=== PATIENT | female | born 1955 | race American Indian/Alaskan Native ===

== ENCOUNTER → 2018-04-09 12:44 | Outpatient (CLI) | payer OTHER, SELFPAY ==
--- NOTE | 2018-04-09 13:23 | DI.RAD.S_ITS ---
PROCEDURE: XR CHEST 2V INDICATIONS: Hx Substernal CP, annual PE TECHNIQUE: 2 views of the chest were acquired. COMPARISON: None. FINDINGS: Surgical changes and devices: None. Lungs and pleura: No pleural effusions or pneumothorax. Lungs are clear. Mediastinum: Mediastinal contours are normal. Heart size is normal. Tortuous aorta. Bones and chest wall: No suspicious bony abnormalities. Mild anterior wedging T8 and T12. Soft tissues appear unremarkable. IMPRESSION: No acute cardiopulmonary abnormality Dictated by: Stefan Candelario M.D. on 04/09/2018 at 14:11 Approved by: Stefan Candelario M.D. on 04/09/2018 at 14:12
== END ==
PROVIDERS: PCP Nurse Practitioner Family; Visit Provider Nurse Practitioner Family
DX: M85.88 Other specified disorders of bone density and structure, other site (principal); M85.9 Disorder of bone density and structure, unspecified; Z78.0 Asymptomatic menopausal state; Z00.00 Encounter for general adult medical examination without abnormal findings
CPT/HCPCS: 71046; 77080

== ENCOUNTER → 2018-05-04 11:04 | Outpatient (CLI) | payer OTHER, SELFPAY ==
[2018-05-04 12:35] LABS: Appearance Urine UA CLEAR; Bilirubin Urine UA NEGATIVE (NEGATIVE); Color Urine UA YELLOW; Glucose Urine UA NEGATIVE (Normal); Ketones Urine UA NEGATIVE (NEGATIVE); Leukocyte Esterase Urine UA NEGATIVE (NEGATIVE); Nitrite Urine UA Negative (Negative); Occult Blood Urine UA TRACE-INTACT (Negative); Protein Urine UA NEGATIVE (Negative); Specific Gravity Urine UA <=1.005 (1.000-1.035); Urobilinogen Urine UA 0.2 E.U./dL (0.2)
== END ==
PROVIDERS: PCP Nurse Practitioner Family; Visit Provider Nurse Practitioner Family
DX: R31.9 Hematuria, unspecified (principal)
CPT/HCPCS: 81003

== ENCOUNTER 2018-07-13 08:32 | Day surgery (SDC) | payer OTHER, SELFPAY ==
[2018-07-13 09:31] VITALS: BMI 28.3
[2018-07-13 09:40] VITALS: BP 130/75; PULSE 68; RESP 16; TEMP 36.2; O2SAT 100
[2018-07-13] MEDS: SODIUM CHLORIDE 0.9% 1,000 ML 21 ML IV (09:52)
--- NOTE | 2018-07-13 11:07 | PM.HP.1 ---
History of Present Illness Date Patient Seen: 07/13/18 Time Patient Seen: 11:08 Chief complaint: [id number] Narrative: Patient with a prior history of polyps. Last exam was 2014. On testing recently she had blood in her stool and is here for a colonoscopy Patient History Medical History GERD (gastroesophageal reflux disease) (Chronic) Hepatitis C (Chronic 2013) Hiatal hernia (Chronic 2007) Abnormal Pap smear of cervix (Resolved 1987) Colon polyps (Resolved 2008) Colon polyps (Resolved 2010) Syphilis (Resolved ~1970) Surgical History Anesthesia (Resolved) History of tonsillectomy (Resolved ~1962) History of total left knee replacement (TKR) (Resolved 03/30/17) Status post breast reduction (Resolved 1999) Status post colonoscopy (Resolved 2008) Status post colonoscopy (Resolved 2011) Status post dilation and curettage (Resolved) Status post knee surgery (Resolved 03/2012) Status post knee surgery (Resolved 2011) Status post tubal ligation (Resolved 1987) Family & Social History Family History: Reviewed 07/13/18 by Chicho Little MD Social History: household members spouse Tobacco & Substance use: Smoking Status Never smoker Meds Home Medications Medication Instructions Recorded Confirmed Type cholecalciferol (vitamin D3) 125 mg PO QDAY #0 03/09/17 07/13/18 History [Vitamin D3] cyanocobalamin (vitamin B-12) 1,000 mcg PO DAILY 07/13/18 07/13/18 History [Vitamin B-12] ferrous sulfate [iron] 325 mg PO DAILY 07/13/18 07/13/18 History Allergies Allergy/AdvReac Type Severity Reaction Status Date / Time No Known Drug Allergies Allergy Verified 07/13/18 09:28 Review of Systems Review of Systems All systems reviewed & are unremarkable except as noted in HPI and below Gastrointestinal Comments: Successfully treated for hep C with clearance Exam Vital Signs (past 8 hours): - 07/13/18 09:40 Temperature 97.2 F L Pulse Rate 68 Respiratory Rate 16 Blood Pressure 130/75 Pulse Oximetry 100 Oxygen Delivery Method Room Air Narrative Exam Narrative: Operative no apparent distress. Lungs clear . heart regular rate and rhythm without murmur gallop. abdomen is scaphoid soft nontender without mass. alert and oriented x3 Assessment & Plan Plan: Assessment/Plan Narrative: Has blood in stool on testing. Last colonoscopy 2014. I have discussed the procedure and the rationale with the patient including risks of bleeding, perforation which would necessitate a major operation, failure to find remove all lesions and the potential to tattoo. They appeared to understand and wished to proceed.
--- NOTE | 2018-07-13 11:11 | PM.PREOP ---
Pre-operative Note Interval Note Pre-op Check: Yes History & Physical exam performed today by Physician Changes: No ASA Class (for procedural sedation): I
[2018-07-13] MEDS: MIDAZOLAM 5 MG/5 ML VIAL IV (11:18)
[2018-07-13] MEDS: fentaNYL 250 MCG/5 ML INJ IV (11:19)
--- NOTE | 2018-07-13 11:40 | PM.OP.ENDO ---
Operative Date/Time/Diagnoses Date of procedure: 07/13/18 Time of procedure: 11:40 Pre-op diagnosis: Blood in stool on testing Post-op diagnosis: same (Normal exam except for sigmoid diverticulosis and internal hemorrhoids) Procedure & Clinicians Study performed: Colonoscopy Same procedure as scheduled: Yes Indications: Blood reported in stool Surgeon: Chicho Little Procedure Notes SCOAP/Timeout: Performed Procedure in detail: The patient was placed in the left lateral decubitus position and underwent IV sedation directed by the surgeon consisting of fentanyl and Versed. Digital exam was unremarkable. The scope was inserted and advanced through the rectum into the sigmoid, descending, transverse, and ascending colon. The patient had a very redundant colon. The cecum was reached identified by the ileocecal valve and the appendiceal opening. The ileocecal valve was successfully cannulated. The terminal ileum was normal in appearance. The scope was gradually brought out. No Polyps were found. The scope ultimately was retroflexed in the rectum. The appearance was notable for internal hemorrhoids.. The scope was removed and the patient tolerated the procedure well Scope withdrawal time: 8 min Sedation minutes: 31 Findings: diverticulosis (Sigmoid) and internal hemorrhoids Recommendations: Colonscopy in 5 years (Due to history of polyps) Follow up: as needed Disposition: PACU
[2018-07-13 11:45] VITALS: BP 109/67; PULSE 64; RESP 10; TEMP 36.8; O2SAT 100
[2018-07-13 11:50] VITALS: BP 122/70; PULSE 59; RESP 11; O2SAT 100
[2018-07-13 11:54] VITALS: BP 114/70; PULSE 53; RESP 11; TEMP 36.9; O2SAT 100
[2018-07-13 12:05] VITALS: BP 124/74; PULSE 57; RESP 14; TEMP 36.9; O2SAT 100
== END 2018-07-13 12:30 | disposition home or self-care (01) ==
PROVIDERS: PCP Nurse Practitioner Family; Visit Provider Specialist
PROC: 0DJD8ZZ Inspection of Lower Intestinal Tract, Via Natural or Artificial Opening Endoscopic (ICD-10-PCS; CPT 45378; principal; 2018-07-13 09:45)
DX: R19.5 Other fecal abnormalities (principal); K57.30 Diverticulosis of large intestine without perforation or abscess without bleeding; K64.8 Other hemorrhoids; Z86.010 Personal history of colon polyps
CPT/HCPCS: 45378; 99152; 99153; J2250; J3010

== ENCOUNTER 2019-08-16 08:41 | Day surgery (SDC) | payer OTHER, SELFPAY ==
[2019-08-13 08:14] VITALS: BMI 28.7
[2019-08-16] VITALS (8 sets, daily range): BP systolic 117–144; BP diastolic 63–92; PULSE 54–74; RESP 11–16; TEMP 36–36.6; O2SAT 95–100; BMI 28.7
--- NOTE | 2019-08-16 | DI.RAD.S_ITS ---
PROCEDURE: XR FOOT LT 2V INDICATIONS: HAMMER TOE TECHNIQUE: 2 intraoperative fluoroscopic spot images views of the foot were acquired. COMPARISON: [facility], CR, XR FOOT 3+ VIEWS LEFT, 05/14/2019, 9:02. FINDINGS: Dorsal hardware fixation at the first metatarsal phalangeal joint. No unexpected fractures. Prominent soft tissue medial to the first MTP joint. IMPRESSION: 1. Expected intraoperative appearance of the bunionectomy surgery. Dictated by: Susan Hu M.D. on 08/16/2019 at 22:15 Approved by: Susan Hu M.D. on 08/16/2019 at 22:17
[2019-08-16] MEDS: LACTATED RINGERS 1,000 ML 42 ML IV ×2 (09:09→13:11)
--- NOTE | 2019-08-16 10:53 | PM.PREOP ---
Pre-operative Note Interval Note History & Physical reviewed/Exam performed by Physician: Yes Changes to H&P: No
--- NOTE | 2019-08-16 10:53 | PM.OP.1 ---
Operative Date/Time/Diagnoses Date of procedure: 08/16/19 Time of procedure: 10:53 Pre-op diagnosis: Left great toe arthritis and bunion Retained hardware Post-op diagnosis: same Procedure & Clinicians Procedure: Left great toe hardware removal Left first metatarsophalangeal joint fusion Same procedure as scheduled: Yes Indications: Painful great toe. Conservative measures failed to alleviate her pain and she was to have surgical intervention at this time. Surgeon: Griselda Hernandez Click Yes if Unassisted: Yes Anesthesia Type: General Operative Notes Closure Type: primary Specimen(s): none sent Prosthetic devices, grafts, tissues, transplants, or devices: Franklin great toe fusion plate, 2.7 x 7 screws (locking and non-locking) See Implant record for specifics on DBM and bone croutons added. Estimated Blood Loss (mL): 30 Blood products transfused: none Tourniquet time (min): 113 Procedure in detail: The patient was brought to the operating room and placed on the operating table in the supine position. A tourniquet was placed about the patient's thigh. A time out was performed and instrumentation indicators were verified to have achieved sterilization. The patient was well-padded and appropriately aligned. After induction of general anesthesia the foot and ankle were prepped and draped in the usual aseptic manner. The tourniquet was inflated. Incision was made over the dorsal aspect of the left 1st metatarsophalangeal joint. The incision was deepened through subcutaneous tissues being careful to identify and retract all vital neurovascular structures. All bleeders were cauterized and ligated necessary. A significant amount of scar tissue was noted along with some exostoses noted to the dorsal medial and lateral 1st metatarsophalangeal joint. The capsule was opened and I also noted a moderately enlarged medial eminence of the 1st metatarsal head. Proximal to joint the edge of the screw was noted. It was significantly imbedded in the bone on its more proximal aspect at the head but the screw itself was very much in the way of where the procedure needed to be performed along with the plate placement. Gentle attempts at removing the screw were mostly involving trying to remove the bone from within the cruciate aspect of the screw head and then surrounding the screw itself. The we were finally able to remove it but unfortunately because of its imbedded in the bone, there was a gap of bone that was necessary to remove in order to remove the screw. The screw was removed in total and passed from the field. The area was irrigated with copious amounts of normal sterile saline. A saw was used to resect the medial eminence enlargement as well as some of the more prominent areas of spurring at the 1st metatarsophalangeal joint. A guidewire was placed in the 1st metatarsal head and a reamer was used to resect the cartilage from the 1st metatarsal head and prepare the joint. Because of the loss of bone proximal to the joint at the proximal phalanx, a mixture of osteotome and curettage along with a saw was used to resect the cartilage and prepare it at the proximal phalanx base. Subchondral drilling was performed to either side with the guidewire as well as some fish scaling using a small osteotome. The area was irrigated with copious amount of normal sterile saline. Different plates were reviewed and because of the challenges faced with the gap of bone at the proximal phalanx, the decision was made to place a small screw with in 1 of the gaps to allow for a lagging at the former joint. Using standard AO technique and a lag technique this was performed. This held nicely and brought the former joint together. Next the gap was filled with the mixture listed in the nursing notes of DBM and bone crew tones. This was packed well. Using the aid of fluoroscopy, a long 0 degree plate was able to be placed and a series of locking and nonlocking screws were placed within it as well. This was checked under C-arm to be in appropriate alignment and under multiple planes. Good strength and reduction of the former joint. The area is irrigated with copious amounts normal sterile saline. The tourniquet was deflated and prompt hyperemic response was seen to the foot. And no motion was noted at the 1st MTPJ. Subcutaneous closure was performed using Vicryl and nylon was used to close the skin. A sterile lightly compressive dressing was placed on the foot and she was placed in her postoperative shoe. She was transferred to the PACU with vital signs stable and vascular status intact. Complications: none Post-operative Condition: stable Disposition: PACU Plan for aftercare: Following a period of postoperative monitoring, the patient be discharged home on written and oral postoperative instructions including keeping the dressing dry and intact, avoiding ambulation on the foot, icing and elevating the foot when seated home. DVT prevention techniques have been reviewed. For the 1st postoperative visit the dressing will be changed and close to the 3rd postoperative week we will likely remove the sutures and x-rays at the 3rd to 4th postoperative week as well.
[2019-08-16] MEDS: CEFAZOLIN 2 GM/100 ML FROZ.PIGGY IV (11:14)
--- NOTE | 2019-08-16 12:14 | SUR.OPER ---
Supine on padded OR bed, head on pillow, arms secured on padded arm boards at <90 degrees abduction, legs uncrossed, safety belt at thigh, tape over blanket over no-operative lower extremity.
--- NOTE | 2019-08-16 12:15 | SUR.OPER ---
Supine on padded OR bed, head on pillow, arms secured on padded arm boards at <90 degrees abduction, legs uncrossed, safety belt at thigh, tape over blanket over lower legs, bump to left hip
[2019-08-16] MEDS: BUPIVACAINE 0.5% (PF) VIAL 30 ML INJ (12:26)
--- NOTE | 2019-08-16 13:00 | SUR.OPER ---
UNABLE TO OBTAIN INFO REGARDING SCREW REMOVED PER DR. GUZMAN.
--- NOTE | 2019-08-16 14:49 | SUR.PHASEI ---
bedside report given to Jenifer Mccarty RN. pt in stable condition, vss. transferred care of pt to RASHID Mccarty at this time.
[2019-08-16] MEDS: OXYCODONE/ACETAMINOPHEN 5/325 TABLET 1 TAB PO (15:17)
== END 2019-08-16 16:35 | disposition home or self-care (01) ==
PROVIDERS: PCP Nurse Practitioner; Visit Provider Podiatrist
DX: M20.12 Hallux valgus (acquired), left foot (principal); M79.672 Pain in left foot; M19.079 Primary osteoarthritis, unspecified ankle and foot
CPT/HCPCS: 28750; 20680; 73620; 76000; J0690; J1100; J2250; J2405; J2704; J3010

== ENCOUNTER 2020-04-01 14:41 | Emergency (ER) | payer OTHER, SELFPAY ==
[2020-04-01] VITALS (10 sets, daily range): BP systolic 143–166; BP diastolic 84–101; PULSE 62–81; RESP 12–29; TEMP 36.6; O2SAT 94–100; BMI 31.2
--- NOTE | 2020-04-01 15:30 | ED.EXTPRO ---
HPI - Extremity Problem General Chief complaint: Extremity Problem,Nontraumatic Stated complaint: left forearm hot/red line/severe headache today Time Seen by Provider: 04/01/20 14:54 Source: patient Mode of arrival: Ambulatory Limitations: no limitations History of Present Illness HPI Narrative: Patient is a 65-year-old female who presents with left middle finger swelling and pain with streaking up her arm. She said last night she was fine she had no problem this morning she noticed that the tip of her finger with a little irritated but she was still able to make a fist now she has significant swelling and pain with at the distal tip of her middle finger with erythema streaking up her arm to just below her elbow. She denies any fever or chills. She has not had any body aches she denies any injury to her hand or finger. MD Complaint: extremity swelling Related Data Previous Rx's Medication Instructions Recorded cephalexin [Keflex] 500 mg PO TID #30 cap 04/01/20 Allergies Allergy/AdvReac Type Severity Reaction Status Date / Time No Known Drug Allergies Allergy Verified 04/01/20 14:51 Review of Systems Review of Systems Narrative: GENERAL: Denies chills, fatigue, malaise, fever, sweats, travel HEENT: Denies sinus pain, ear pain, sore throat, difficulty swallowing, neck pain RESPIRATORY: Denies dyspnea, cough, wheezing, hemoptysis, sputum. CARDIOVASCULAR: Denies chest pain, palpitations, orthopnea, edema GASTROINTESTINAL: Denies nausea, vomiting, abdominal pain, diarrhea, constipation, melena. : Denies dysuria, frequency, incontinence, hematuria, urinary retention, flank pain. MUSCULOSKELETAL: Denies weakness, joint pain, or bony pain SKIN: See HPI NEUROLOGIC: Denies weakness, dizziness, headache, numbness, change in speech, confusion PSYCHIATRIC: No concerning psychosocial issues. 12 point review of systems is negative except for those stated above and HPI Patient History Medical History Abnormal Pap smear of cervix (Resolved 1987) Colon polyps (Resolved 2008) Colon polyps (Resolved 2010) GERD (gastroesophageal reflux disease) (Chronic) Hepatitis C (Chronic 2013) Hiatal hernia (Chronic 2007) Syphilis (Resolved ~1969) Surgical History Anesthesia (Resolved) H/O: hysterectomy (Acute) History of tonsillectomy (Resolved ~1962) History of total left knee replacement (TKR) (Resolved 03/30/17) S/P foot surgery, left (Acute) Status post breast reduction (Resolved 1999) Status post colonoscopy (Resolved 2008) Status post colonoscopy (Resolved 2011) Status post dilation and curettage (Resolved) Status post knee surgery (Resolved 03/2012) Status post knee surgery (Resolved 2011) Status post LASIK surgery (Acute) Status post trigger finger release (Acute) Status post tubal ligation (Resolved 1987) Family History Unknown No problems noted. Social History household members: spouse Smoking Status: Never smoker second hand exposure: No alcohol intake: former substance use type: does not use Smoking Status: Never smoker Substance Use Type: does not use Exam Initial Vital Signs Initial Vital Signs: Vital Signs Pulse Rate 81 04/01/20 14:49 Pulse Oximetry 98 04/01/20 14:49 GENERAL: Well-appearing, well-nourished and in no acute distress. HEENT: Head atraumatic,EOMI, pupils reactive, face symmetric, moist mucous membranes CARDIOVASCULAR: Regular rate and rhythm without murmurs, rubs or gallops. RESPIRATORY: Breath sounds equal bilaterally, no wheezes rales or rhonchi. EXTREMITIES: Normal range of motion, no clubbing or edema. Neurovascularly intact Left hand middle finger distal tip the palmar side is swollen and tender she is noted to have erythema starting at the middle MCP and spreading up her forearm to just below her elbow NEUROLOGICAL: Alert and oriented x4.Normal gait and speech. Cranial nerves II through XII grossly intact. SKIN: Warm, dry, no laceration, no petechiae, no rashes or lesions. Procedures Abscess I/D I&D #1: Site: hand (left index finger) Side (if applicable): left Local Anesthetic: lidocaine 1% Amount of anesthesia used (mL): 6 Technique: incised with #11 blade (bilateral longitudinal incisions) Amount of fluid expressed (mL): 0 Irrigation: No Packing used?: iodoform Complications: pain and bleeding Nerve Block Nerve Block 1: Time out performed: Yes Local Anesthetic: lidocaine 1% Amount of anesthesia used (mL): 6 Side: left Nerve Blocks: digital Procedure Successful: Yes Patient Tolerated Procedure: Well Complications: none Course Orders Ordered: Discontinued Medications Sodium Chloride (Normal Saline 0.9%) 1,000 mls @ 1,000 mls/hr IV BOLUS ONE Stop: 04/01/20 16:27 Last Infusion: 04/01/20 17:17 Dose: 0 mls/hr Documented by: Admin: 04/01/20 15:48 Dose: 1,000 mls/hr Documented by: MARIUSZ Ceftriaxone Sodium/Dextrose (Rocephin) 1 gm in 50 mls @ 100 mls/hr IV NOW ONE Stop: 04/01/20 18:03 Last Admin: 04/01/20 18:18 Dose: 100 mls/hr Documented by: MARIUSZ Ketorolac Tromethamine (Toradol) 30 mg IV NOW ONE Stop: 04/01/20 15:43 Last Admin: 04/01/20 15:48 Dose: 30 mg Documented by: MARIUSZ Lidocaine HCl (Xylocaine 1%) 10 ml INJ NOW ONE Stop: 04/01/20 16:47 Last Admin: 04/01/20 17:15 Dose: Not Given Documented by: MARIUSZ Consultations Consultation #1: Orthopedics Dr. Mcclain updated patient's symptoms test results agrees with bedside I and D and antibiotic with outpatient follow-up Vital Signs Vital signs: Vital Signs - 8 hr 04/01/20 14:49 04/01/20 14:52 04/01/20 15:20 Temperature 97.9 F Pulse Rate 81 81 Pulse Rate [Left Radial] 70 Respiratory Rate 16 Blood Pressure 166/101 H Pulse Oximetry 98 99 04/01/20 15:57 04/01/20 16:00 Temperature Pulse Rate 73 72 Pulse Rate [Left Radial] Respiratory Rate 21 Blood Pressure 157/92 H 152/91 H Pulse Oximetry 94 100 MDM - Extremity (Nontraumatic) Lab Data Result diagrams: 04/01/20 15:40 04/01/20 15:40 Labs: Lab Results 04/01/20 04/01/20 04/01/20 Range/Units 15:40 15:40 15:40 WBC 6.9 (4.5-11.0) X10^3/uL RBC 4.86 (4.0-5.2) X10^6/uL Hgb 15.4 (12.0-16.0) g/dL Hct 44.6 (36-46) % MCV 91.8 (80-100) fL MCH 31.7 (26-34) PG MCHC 34.6 (30-36) % RDW 12.9 (11.6-14.8) % Plt Count 222 (150-400) X10^3/uL Neut % (Auto) 72.7 (50-75) % Lymph % (Auto) 15.1 L (25-40) % [place] % (Auto) 9.1 (3-14) % Eos % (Auto) 2.3 (2-4) % Baso % (Auto) 0.8 (0-2) % Neut # (Auto) 5000 (7299-9791) /uL Lymph # (Auto) 1000 L (6595-5338) /uL [place] # (Auto) 600 (0-900) /uL Eos # (Auto) 200 (0-450) /uL Baso # (Auto) 100 (0-100) /uL PT 12.0 (10.1-12.7) SECONDS INR 1.0 (0.9-1.3) APTT 35 (26.4-36.2) SECONDS Sodium (137-145) mmol/L Potassium (3.4-5.1) mmol/L Chloride (98-107) mmol/L Carbon Dioxide (22-32) mmol/L BUN (7-17) mg/dL Creatinine (0.52-1.04) mg/dL Estimated GFR (>60) mL/min BUN/Creatinine Ratio (6-22) Glucose (80-110) mg/dL Lactate (0.7-2.1) mmol/L Calcium (8.4-10.2) mg/dL Total Bilirubin (0.2-1.3) mg/dL AST (14-36) IU/L ALT (<35) IU/L Alkaline Phosphatase (38-126) U/L Total Protein (6.3-8.2) g/dL Albumin (3.5-5.0) g/dL Globulin (1.7-4.1) g/dL Albumin/Globulin Ratio (1.0-2.8) Lipase (23-300) U/L Procalcitonin < 0.05 (<0.5) ng/mL 04/01/20 04/01/20 Range/Units 15:40 15:40 WBC (4.5-11.0) X10^3/uL RBC (4.0-5.2) X10^6/uL Hgb (12.0-16.0) g/dL Hct (36-46) % MCV (80-100) fL MCH (26-34) PG MCHC (30-36) % RDW (11.6-14.8) % Plt Count (150-400) X10^3/uL Neut % (Auto) (50-75) % Lymph % (Auto) (25-40) % [place] % (Auto) (3-14) % Eos % (Auto) (2-4) % Baso % (Auto) (0-2) % Neut # (Auto) (2909-0669) /uL Lymph # (Auto) (3696-3996) /uL [place] # (Auto) (0-900) /uL Eos # (Auto) (0-450) /uL Baso # (Auto) (0-100) /uL PT (10.1-12.7) SECONDS INR (0.9-1.3) APTT (26.4-36.2) SECONDS Sodium 138 (137-145) mmol/L Potassium 4.2 (3.4-5.1) mmol/L Chloride 105 (98-107) mmol/L Carbon Dioxide 28 (22-32) mmol/L BUN 14 (7-17) mg/dL Creatinine 0.51 L (0.52-1.04) mg/dL Estimated GFR > 60.0 (>60) mL/min BUN/Creatinine Ratio 27.5 H (6-22) Glucose 95 (80-110) mg/dL Lactate 0.7 (0.7-2.1) mmol/L Calcium 9.8 (8.4-10.2) mg/dL Total Bilirubin 0.4 (0.2-1.3) mg/dL AST 32 (14-36) IU/L ALT 16 (<35) IU/L Alkaline Phosphatase 65 (38-126) U/L Total Protein 7.9 (6.3-8.2) g/dL Albumin 4.5 (3.5-5.0) g/dL Globulin 3.4 (1.7-4.1) g/dL Albumin/Globulin Ratio 1.3 (1.0-2.8) Lipase 45 (23-300) U/L Procalcitonin (<0.5) ng/mL Imaging Data Extremity x-ray #1: Radiologist's Impression: PROCEDURE: XR FINGER LT MIN 2V INDICATIONS: swelling TECHNIQUE: AP hand, 2 views of the left finger(s) acquired. COMPARISON: None. FINDINGS: Bones: Lucency projecting at the dorsal aspect of the distal phalanx of the middle finger No suspicious bony lesions. Diffuse interphalangeal joint degeneration. First CMC and triscaphe joint degeneration. Ulnar minus variance and distal radioulnar joint degeneration suggestive of ulnar impingement syndrome. Soft tissues: No suspicious soft tissue calcifications. IMPRESSION: Linear lucency projects in the dorsal aspect of the distal phalanx of the left middle finger suggestive of nondisplaced fracture. This could be further assessed and confirmed with repeat radiographs in 10 days. Background chronic degenerative changes as above Dictated by: Bib Quintero M.D. on 04/01/2020 at 16:09 Approved by: Bib Quintero M.D. on 04/01/2020 at 16:12 Discharge Plan Departure Patient Disposition: Home Clinical Impression: Felon of finger of left hand Discharge Date/Time: 04/01/20 19:11 Instructions: DI for Felon Activity Restrictions/Additional Instructions: *You have been diagnosed with left middle finger felon *What to do: Keep dressing on until tomorrow. Return to the ER around 7:00 a.m. for re-evaluation *Continue to take medications as directed--> sent to [facility] in [place] Keflex 500 mg 3 times a day for 10 days *Follow up with your primary care provider in 2-3 days, Call orthopedics to schedule follow-up, recommend follow-up by next week *Return to ER if you should have increased swelling, worsening redness, fever, inability to move finger or any new, worsening or concerning symptoms Prescriptions: New cephalexin [Keflex] 500 mg capsule 500 mg PO TID Qty: 30 RF: 0 Referrals: [facility] [Provider Group] Arelis Mcgrath ARNP [Primary Care Provider] -
--- NOTE | 2020-04-01 15:36 | DI.RAD.S_ITS ---
PROCEDURE: XR FINGER LT MIN 2V INDICATIONS: swelling TECHNIQUE: AP hand, 2 views of the left finger(s) acquired. COMPARISON: None. FINDINGS: Bones: Lucency projecting at the dorsal aspect of the distal phalanx of the middle finger No suspicious bony lesions. Diffuse interphalangeal joint degeneration. First CMC and triscaphe joint degeneration. Ulnar minus variance and distal radioulnar joint degeneration suggestive of ulnar impingement syndrome. Soft tissues: No suspicious soft tissue calcifications. IMPRESSION: Linear lucency projects in the dorsal aspect of the distal phalanx of the left middle finger suggestive of nondisplaced fracture. This could be further assessed and confirmed with repeat radiographs in 10 days. Background chronic degenerative changes as above Dictated by: Bib Quintero M.D. on 04/01/2020 at 16:09 Approved by: Bbi Quintero M.D. on 04/01/2020 at 16:12
[2020-04-01] MEDS: KETOROLAC 60 MG/2 ML VIAL 30 MG IV (15:48)
[2020-04-01] MEDS: SODIUM CHLORIDE 0.9% 1,000 ML 1000 ML IV (15:48)
[2020-04-01 15:50] LABS: Add Manual Diff / Slide Review NO; Basophils Absolute Auto 100 /uL (0-100); Basophils Percent Auto 0.8 % (0-2); Eosinophils Absolute Auto 200 /uL (0-450); Eosinophils Percent Auto 2.3 % (2-4); Hematocrit 44.6 % (36-46); Hemoglobin 15.4 g/dL (12.0-16.0); Lymphocytes Absolute Auto 1000 /uL (1100-4500); Lymphocytes Percent Auto 15.1 % (25-40); Mean Corpuscular HGB Conc 34.6 % (30-36); Mean Corpuscular Hemoglobin 31.7 PG (26-34); Mean Corpuscular Volume 91.8 fL (80-100); Monocytes Absolute Auto 600 /uL (0-900); Monocytes Percent Auto 9.1 % (3-14); Neutrophils Absolute Auto 5000 /uL (1500-7000); Neutrophils Percent Auto 72.7 % (50-75); Platelet Count 222 X10^3/uL (150-400); Red Blood Cell Count 4.86 X10^6/uL (4.0-5.2); Red Cell Distribution Width 12.9 % (11.6-14.8); White Blood Cell Count 6.9 X10^3/uL (4.5-11.0)
[2020-04-01 16:01] LABS: Lactate (Lactic Acid) 0.7 mmol/L (0.7-2.1)
[2020-04-01 16:02] LABS: Alanine Aminotransferase 16 IU/L (<35); Albumin 4.5 g/dL (3.5-5.0); Albumin Globulin Ratio 1.3 (1.0-2.8); Alkaline Phosphatase 65 U/L (38-126); Aspartate Aminotransferase 32 IU/L (14-36); BUN Creatinine Ratio 27.5 (6-22); Bilirubin Total 0.4 mg/dL (0.2-1.3); Blood Urea Nitrogen 14 mg/dL (7-17); Calcium 9.8 mg/dL (8.4-10.2); Carbon Dioxide 28 mmol/L (22-32); Chloride 105 mmol/L (98-107); Estimated Glomerular Filt Rate > 60.0 mL/min (>60); Globulin 3.4 g/dL (1.7-4.1); Glucose 95 mg/dL (80-110); HEMOLYSIS < 15 (0-50); Lipase 45 U/L (23-300); PTT Partial Thromboplastin Tim 35 SECONDS (26.4-36.2); Potassium 4.2 mmol/L (3.4-5.1); Sodium 138 mmol/L (137-145); Total Protein 7.9 g/dL (6.3-8.2)
[2020-04-01 16:19] LABS: Procalcitonin < 0.05 ng/mL (<0.5)
[2020-04-01] MEDS: LIDOCAINE 2% INJ MDV 20 ML (17:16)
[2020-04-01] MEDS: CEFTRIAXONE 1 GM/50 ML FROZ.PIGGY IV (18:18)
--- NOTE | 2020-04-01 19:10 | PC.NURSE ---
dressed pt's wound with xeroform, conform and tube gauze
--- NOTE | 2020-05-18 14:04 | PC.NURSE ---
per RASHID Thacker, IV rocephin stopped at 191
== END 2020-04-01 19:11 | disposition home or self-care (01) ==
PROVIDERS: Emergency Provider Emergency Medicine; PCP Nurse Practitioner
DX: L03.012 Cellulitis of left finger (principal)
CPT/HCPCS: 10060; 36415; 64450; 73140; 80053; 83605; 83690; 84145; 85025; 85610; 85730; 87040; 87070; 87075; 87077; 87147; 87205; 96361; 96375; 99284; J1885

== ENCOUNTER 2020-04-02 07:04 | Inpatient (IN) | payer OTHER, MEDICARE, SELFPAY ==
[2020-04-02] VITALS (17 sets, daily range): BP systolic 119–142; BP diastolic 61–102; PULSE 60–83; RESP 10–18; TEMP 35.9–36.9; O2SAT 94–100; BMI 31.2
--- NOTE | 2020-04-02 07:25 | ED_ITS ---
HPI - Extremity Injury (Upper) General Chief Complaint: Extremity Injury, Upper Stated Complaint: red line up arm Time Seen by Provider: 04/02/20 07:06 Source: patient Mode of arrival: Ambulatory Limitations: no limitations History of Present Illness HPI narrative: Patient is 65-year-old female presenting for re-evaluation. I saw her yesterday with a left middle finger felon, she actually has increased swelling and redness of the entire finger the redness up her arm seems a little bit wider but is not going beyond the marked line. She denies any fever or chills. She was previously able to move her finger some however today she is not able to due to swelling. complaint: injury to: left and finger Related Data Previous Rx's Medication Instructions Recorded cephalexin [Keflex] 500 mg PO TID #30 cap 04/01/20 Allergies Allergy/AdvReac Type Severity Reaction Status Date / Time No Known Drug Allergies Allergy Verified 04/02/20 07:10 Review of Systems Review of Systems Narrative: GENERAL: Denies chills, fatigue, malaise, fever, sweats, travel HEENT: Denies sinus pain, ear pain, sore throat, difficulty swallowing, neck pain RESPIRATORY: Denies dyspnea, cough, wheezing, hemoptysis, sputum. CARDIOVASCULAR: Denies chest pain, palpitations, orthopnea, edema GASTROINTESTINAL: Denies nausea, vomiting, abdominal pain, diarrhea, constipation, melena. : Denies dysuria, frequency, incontinence, hematuria, urinary retention, flank pain. MUSCULOSKELETAL: Denies weakness, joint pain, or bony pain SKIN: See HPI NEUROLOGIC: Denies weakness, dizziness, headache, numbness, change in speech, confusion PSYCHIATRIC: No concerning psychosocial issues. 12 point review of systems is negative except for those stated above and HPI Patient History Medical History (Updated 04/02/20 @ 07:45 by Lou Crespo DO) Abnormal Pap smear of cervix (Resolved 1987) Colon polyps (Resolved 2008) Colon polyps (Resolved 2010) GERD (gastroesophageal reflux disease) (Chronic) Hepatitis C (Chronic 2013) Hiatal hernia (Chronic 2007) Syphilis (Resolved ~1969) Surgical History (Updated 04/02/20 @ 10:56 by Deven Cho MD) Anesthesia (Resolved) History of tonsillectomy (Resolved ~1962) History of total left knee replacement (TKR) (Resolved 03/30/17) S/P foot surgery, left (Acute) Status post breast reduction (Resolved 1999) Status post colonoscopy (Resolved 2008) Status post colonoscopy (Resolved 2011) Status post dilation and curettage (Resolved) Status post knee surgery (Resolved 03/2012) Status post knee surgery (Resolved 2011) Status post LASIK surgery (Acute) Status post trigger finger release (Acute) Status post tubal ligation (Resolved 1987) Family History Unknown No problems noted. Social History household members: spouse Smoking Status: Never smoker second hand exposure: No alcohol intake: former substance use type: does not use Smoking Status: Never smoker Substance Use Type: does not use Exam Initial Vital Signs Initial Vital Signs: Vital Signs Temperature 98.4 F 04/02/20 07:10 Pulse Rate 83 04/02/20 07:10 Respiratory Rate 16 04/02/20 07:10 Blood Pressure 130/87 04/02/20 07:10 Pulse Oximetry 98 04/02/20 07:10 GENERAL: Well-appearing, well-nourished and in no acute distress. HEENT: Head atraumatic,EOMI, pupils reactive, face symmetric CARDIOVASCULAR: Regular rate and rhythm without murmurs, rubs or gallops. RESPIRATORY: Breath sounds equal bilaterally, no wheezes rales or rhonchi. EXTREMITIES: Normal range of motion, no clubbing or edema. Neurovascularly intact Left middle finger swollen she is unable to flex the finger. Finger is held in extension NEUROLOGICAL: Alert and oriented x4.Normal gait and speech. SKIN: Left middle finger is erythematous and swollen erythema now is starting to extend down into the palm of the hand. There is a continues red streak up th e arm but remains below the elbow. No gross pus. Course Orders Ordered: ED Orders 04/02/20 07:25 Basic Metabolic Panel Stat Complete Blood Count AUTO DIFF Stat Lactate (Lactic Acid) Stat Procalcitonin Stat 04/02/20 07:40 Consult to Orthopedic Surgery Stat 04/02/20 08:28 Blood Culture Stat Lactated Ringer's (Lactated Ringers) 1,000 mls @ 100 mls/hr IV CONT CONNIE Ampicillin Sodium/Sulbactam (Sodium 3 gm/ Sodium Chloride) 100 mls @ 100 mls/hr IV Q6H [facility] Vancomycin HCl (Vancomycin) 1,000 mg in 200 mls @ 200 mls/hr IV Q12H [facility] Morphine Sulfate (Morphine) 1 mg IV Q4HR PRN PRN Reason: Pain, Moderate (4-6) Naloxone HCl (Narcan) 0.2 mg IV Q2MIN PRN PRN Reason: Opiate Reversal Ondansetron HCl (Zofran) 4 mg IV Q8HR PRN PRN Reason: Nausea And Vomiting Vancomycin HCl (Vancomycin Trough) 1 request [facility] [place] [address] [facility] Stop: 04/03/20 22:31 Discontinued Medications Ampicillin Sodium/Sulbactam (Sodium 3 gm/ Sodium Chloride) 100 mls @ 100 mls/hr IV NOW ONE Stop: 04/02/20 07:34 Last Infusion: 04/02/20 08:48 Dose: 100 mls/hr Documented by: Infusion: 04/02/20 08:05 Dose: 0 mls/hr Documented by: Infusion: 04/02/20 08:05 Dose: 100 mls/hr Documented by: Admin: 04/02/20 07:57 Dose: 100 mls/hr Documented by: SELINA Vancomycin HCl (Vancomycin) 1,000 mg in 200 mls @ 200 mls/hr IV NOW ONE Stop: 04/02/20 08:49 Ketorolac Tromethamine (Toradol) 15 mg IV NOW ONE Stop: 04/02/20 07:50 Last Admin: 04/02/20 07:57 Dose: 15 mg Documented by: SCANAPO Consultations Consultation #1: Sarahi agrees to consultation Time: 07:35 Consultation #2: Dr. Cho agrees to admission Time: 07:45 Vital Signs Vital signs: Vital Signs - 8 hr 04/02/20 07:10 Temperature 98.4 F Pulse Rate 83 Respiratory Rate 16 Blood Pressure 130/87 Pulse Oximetry 98 MDM - Extremity Injury (Upper) Lab Data Result diagrams: 04/02/20 07:25 04/02/20 07:25 Labs: Lab Results 04/02/20 04/02/20 04/02/20 Range/Units 07:25 07:25 07:25 WBC 6.2 (4.5-11.0) X10^3/uL RBC 4.71 (4.0-5.2) X10^6/uL Hgb 15.0 (12.0-16.0) g/dL Hct 43.1 (36-46) % MCV 91.5 (80-100) fL MCH 31.9 (26-34) PG MCHC 34.8 (30-36) % RDW 13.2 (11.6-14.8) % Plt Count 233 (150-400) X10^3/uL Neut % (Auto) 66.0 (50-75) % Lymph % (Auto) 18.2 L (25-40) % [place] % (Auto) 10.8 (3-14) % Eos % (Auto) 4.0 (2-4) % Baso % (Auto) 1.0 (0-2) % Neut # (Auto) 4100 (2461-1636) /uL Lymph # (Auto) 1100 (7786-4172) /uL [place] # (Auto) 700 (0-900) /uL Eos # (Auto) 200 (0-450) /uL Baso # (Auto) 100 (0-100) /uL Sodium 139 (137-145) mmol/L Potassium 3.7 (3.4-5.1) mmol/L Chloride 109 H (98-107) mmol/L Carbon Dioxide 24 (22-32) mmol/L BUN 16 (7-17) mg/dL Creatinine 0.53 (0.52-1.04) mg/dL Estimated GFR > 60.0 (>60) mL/min BUN/Creatinine Ratio 30.2 H (6-22) Glucose 93 (80-110) mg/dL Lactate (0.7-2.1) mmol/L Calcium 9.3 (8.4-10.2) mg/dL Procalcitonin < 0.05 (<0.5) ng/mL COVID-19 PCR (Negative) 04/02/20 04/02/20 Range/Units 07:25 08:01 WBC (4.5-11.0) X10^3/uL RBC (4.0-5.2) X10^6/uL Hgb (12.0-16.0) g/dL Hct (36-46) % MCV (80-100) fL MCH (26-34) PG MCHC (30-36) % RDW (11.6-14.8) % Plt Count (150-400) X10^3/uL Neut % (Auto) (50-75) % Lymph % (Auto) (25-40) % [place] % (Auto) (3-14) % Eos % (Auto) (2-4) % Baso % (Auto) (0-2) % Neut # (Auto) (2879-3876) /uL Lymph # (Auto) (9898-7375) /uL [place] # (Auto) (0-900) /uL Eos # (Auto) (0-450) /uL Baso # (Auto) (0-100) /uL Sodium (137-145) mmol/L Potassium (3.4-5.1) mmol/L Chloride (98-107) mmol/L Carbon Dioxide (22-32) mmol/L BUN (7-17) mg/dL Creatinine (0.52-1.04) mg/dL Estimated GFR (>60) mL/min BUN/Creatinine Ratio (6-22) Glucose (80-110) mg/dL Lactate 0.7 (0.7-2.1) mmol/L Calcium (8.4-10.2) mg/dL Procalcitonin (<0.5) ng/mL COVID-19 PCR Negative (Negative) MDM Narrative Medical decision making narrative: Finger today does look worse it is more s wollen and erythematous with decreased range of motion. The distal tip actually appears okay is the entire finger however is erythematous with erythema extending into the palm and she continues to have streaking up the arm. More broad-spectrum antibiotics been added including Unasyn and vancomycin she was previously on Keflex and 1 dose of Rocephin yesterday. She does not appear septic. Orthopedics has been consulted and made aware she will be admitted to hospitalist service Discharge Plan Departure Patient Disposition: Admitted as Observation Clinical Impression: Felon of finger of left hand Discharge Date/Time: 04/02/20 09:11 Referrals: Arelis Mcgrath ARNP [Primary Care Provider] - Admit Date/Time: 04/02/20 08:15 Admit Provider: Deven Cho
[2020-04-02 07:34] LABS: Add Manual Diff / Slide Review NO; Basophils Absolute Auto 100 /uL (0-100); Eosinophils Absolute Auto 200 /uL (0-450); Hematocrit 43.1 % (36-46); Lymphocytes Absolute Auto 1100 /uL (1100-4500); Lymphocytes Percent Auto 18.2 % (25-40); Mean Corpuscular HGB Conc 34.8 % (30-36); Mean Corpuscular Hemoglobin 31.9 PG (26-34); Mean Corpuscular Volume 91.5 fL (80-100); Monocytes Absolute Auto 700 /uL (0-900); Monocytes Percent Auto 10.8 % (3-14); Neutrophils Absolute Auto 4100 /uL (1500-7000); Platelet Count 233 X10^3/uL (150-400); Red Blood Cell Count 4.71 X10^6/uL (4.0-5.2); Red Cell Distribution Width 13.2 % (11.6-14.8); White Blood Cell Count 6.2 X10^3/uL (4.5-11.0)
[2020-04-02 07:46] LABS: Lactate (Lactic Acid) 0.7 mmol/L (0.7-2.1)
[2020-04-02 07:47] LABS: BUN Creatinine Ratio 30.2 (6-22); Blood Urea Nitrogen 16 mg/dL (7-17); Calcium 9.3 mg/dL (8.4-10.2); Carbon Dioxide 24 mmol/L (22-32); Chloride 109 mmol/L (98-107); Estimated Glomerular Filt Rate > 60.0 mL/min (>60); Glucose 93 mg/dL (80-110); HEMOLYSIS < 15 (0-50); Potassium 3.7 mmol/L (3.4-5.1); Sodium 139 mmol/L (137-145)
[2020-04-02] MEDS: KETOROLAC 60 MG/2 ML VIAL 15 MG IV (07:57)
[2020-04-02] MEDS: AMPICILLIN/SULBACTAM 3 GM 3 GM in SODIUM CHLORIDE 0.9% 100 ML IV ×3 (07:57→20:35)
[2020-04-02 08:01] LABS: Procalcitonin < 0.05 ng/mL (<0.5)
--- NOTE | 2020-04-02 08:24 | PC.NURSE ---
pt states on monday she dropped a cement block onto finger, mild injury. took her glove off looked at it and was not concerned continued her day. yesterday woke with swelling and redness extending up arm. seen here yesterday and had incision to drain area, returned today for recheck. injury not improving, ortho to be consulted.
[2020-04-02 09:01] LABS: COVID19 -Nasal RAPID Negative (Negative)
--- NOTE | 2020-04-02 10:56 | P.HP_ITS ---
History of Present Illness History of Present Illness Date Patient Seen: 04/02/20 Time Patient Seen: 10:30 Date of Onset of Symptoms: 04/01/20 Chief complaint: red line up arm Narrative: Patient is a 65-year-old female in generally good health who presented back to the ER for left middle finger infection. Yesterday morning she developed acute onset of swelling pain and redness in the finger which for within hours progressed up her arm. She presented to the ER and had a felon lanced at the distal end of the finger. She was given dose of IV antibiotic and discharged home on cephalexin with instructions to follow-up today. On present ation to the ER today the appearance of the finger looked worse prompting hospital admission. Patient states just in the last couple of hours she has noticed more redness and swelling at the proximal end of the finger as well as increased erythema up her arm to the elbow. She also was able to move her fingers some yesterday but not today. She denies fever, chills, nausea, vomiting. On laboratory evaluation WBC 6.2, procalcitonin normal. Finger x-ray from yesterday shows linear lucency in dorsal aspect of the distal phalanx suggestive of nondisplaced fracture. 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 She received dose of IV vancomycin and Unasyn in the ED and Dr. Salvador has been notified to see her for Ortho. Patient History Medical History (Updated 04/02/20 @ 07:45 by Lou Crespo DO) Abnormal Pap smear of cervix (Resolved 1987) Colon polyps (Resolved 2008) Colon polyps (Resolved 2010) GERD (gastroesophageal reflux disease) (Chronic) Hepatitis C (Chronic 2013) Hiatal hernia (Chronic 2007) Syphilis (Resolved ~1970) Surgical History (Updated 04/02/20 @ 10:56 by Deven Cho MD) Anesthesia (Resolved) History of tonsillectomy (Resolved ~1962) History of total left knee replacement (TKR) (Resolved 03/30/17) S/P foot surgery, left (Acute) Status post breast reduction (Resolved 1999) Status post colonoscopy (Resolved 2008) Status post colonoscopy (Resolved 2011) Status post dilation and curettage (Resolved) Status post knee surgery (Resolved 03/2012) Status post knee surgery (Resolved 2011) Status post LASIK surgery (Acute) Status post trigger finger release (Acute) Status post tubal ligation (Resolved 1987) Family & Social History Family History Unknown No problems noted. Social History: household members spouse Safety & Behavioral: Feels Safe in Current Yes Environment Been Physically Hurt or No Threatened By a Person Suicidal Ideation Description None Suicide Plan Description No Plan Tobacco & Substance use: Smoking Status Never smoker alcohol intake former Substance Use Type does not use Meds Home Medications and Allergies Home Medications Medication Instructions Recorded Confirmed Type cephalexin [Keflex] 500 mg PO TID #30 cap 04/01/20 Rx Allergies Allergy/AdvReac Type Severity Reaction Status Date / Time No Known Drug Allergies Allergy Verified 04/02/20 07:10 Review of Systems Review of Systems ROS: Yes All systems reviewed with the patient and are negative except as otherwise documented Exam Vital Signs (past 8 hours): - 04/02/20 07:10 04/02/20 08:49 04/02/20 09:51 Temperature 98.4 F 97.3 F L Pulse Rate 83 60 66 Respiratory Rate 16 14 18 Blood Pressure 130/87 137/77 142/87 H Pulse Oximetry 98 99 98 Oxygen Delivery Method Room Air Narrative Exam Narrative: General: Alert pleasant and cooperative female HEENT: Pupils equal Neck: No lymphadenopathy Lungs: Clear to auscultation Heart: Normal S1 and S2, regular rate and rhythm, no murmur Abdomen: Soft, no HSM Neurological: Sensorium intact, nonfocal Extremities, upper: There is diffuse swelling and erythema of the left middle finger which extends into the hand and wraps around up into the forearm to the elbow. Third 2 incision polanco on the volar distal finger from I and D yesterday. There is tenderness over and around the flexor tendons and patient unable to flex the finger passively. Extremities, lower: No edema Objective Labs Result Diagrams: 04/02/20 07:25 04/02/20 07:25 Labs: Laboratory Results - last 24 hr 04/02/20 04/02/20 04/02/20 07:25 07:25 07:25 WBC 6.2 RBC 4.71 Hgb 15.0 Hct 43.1 MCV 91.5 MCH 31.9 MCHC 34.8 RDW 13.2 Plt Count 233 Neut % (Auto) 66.0 Lymph % (Auto) 18.2 L [place] % (Auto) 10.8 Eos % (Auto) 4.0 Baso % (Auto) 1.0 Neut # (Auto) 4100 Lymph # (Auto) 1100 [place] # (Auto) 700 Eos # (Auto) 200 Baso # (Auto) 100 Sodium 139 Potassium 3.7 Chloride 109 H Carbon Dioxide 24 BUN 16 Creatinine 0.53 Estimated GFR > 60.0 BUN/Creatinine Ratio 30.2 H Glucose 93 Lactate Calcium 9.3 Procalcitonin < 0.05 COVID-19 PCR 04/02/20 04/02/20 07:25 08:01 WBC RBC Hgb Hct MCV MCH MCHC RDW Plt Count Neut % (Auto) Lymph % (Auto) [place] % (Auto) Eos % (Auto) Baso % (Auto) Neut # (Auto) Lymph # (Auto) [place] # (Auto) Eos # (Auto) Baso # (Auto) Sodium Potassium Chloride Carbon Dioxide BUN Creatinine Estimated GFR BUN/Creatinine Ratio Glucose Lactate 0.7 Calcium Procalcitonin COVID-19 PCR Negative Assessment & Plan Assessment & Plan narrative: 1. Left middle finger tenosynovitis, present on admission, active -patient with failure of outpatient therapy and may need surgical incision and drainage -wound culture 04/01 from a ED grew beta-hemolytic strep organism which should be susceptible to penicillins and cephalosporins -blood cultures 04/01 and 04/02 pending -continue vancomycin and Unasyn for broad-spectrum coverage -ortho consult pending -NPO in case she needs surgery -LR at 100 cc/hour IV hydration -morphine 1 mg IV q.4 hour as needed pain control COVID-19: Negative on 04/02/2020 Admit: Inpatient Code status: Full code Surrogate decision maker: Quality VTE Deep Vein Thrombosis/Pulmonary Embolism Present on Admission: No
[2020-04-02] MEDS: MORPHINE 2 MG/ML INJ 1 MG IV ×3 (12:07→21:47)
[2020-04-02] MEDS: LACTATED RINGERS 1,000 ML 100 ML IV (12:17)
[2020-04-02] MEDS: VANCOMYCIN 1,000 MG/200 ML PIGGYBACK 200 MG IV ×2 (12:19→22:31)
--- NOTE | 2020-04-02 13:05 | PC.NURSE ---
Patients third finger outlined in black pen up to forearm where redness has spread. The area on the top of her hand is swollen and red, and the inside of her palm and fingers are red. Patient has some packing to her finger, non stick dressing to finger with some coban wrapped loosely around finger. She has a consult with Dr. Salvador this afternoon. Given 1mg of iv morphine and seems to be helping patient pain level. She is visiting with her and has been NPO for possible surgery later today.
[2020-04-02] MEDS: MORPHINE 2 MG/ML INJ IV (17:26)
--- NOTE | 2020-04-02 18:33 | PM.HP.1 ---
History of Present Illness History of Present Illness Date Patient Seen: 04/02/20 Time Patient Seen: 18:34 Chief complaint: red line up arm Narrative: A 65-year-old female that is [id number]. She has less than 24 hours development of left middle finger pain. She denies any injury but was length some bricks with a and neighbor a of the few days ago when a brick fell on the top of her finger. She denies any known puncture injuries. She developed swelling of the distal tip of her middle finger and pain as well as some streaking she was seen in the ER found to have a Phalen this was the I and D she got a dose of IV antibiotics and was sent home on oral antibiotics and instructed to come back for follow-up. On presentation back to the ER this morning she was noted to have increased swelling crease pain along the flexor tendon sheath and volar finger with some erythema on the dorsal surface of her hand up towards her elbow was well. She was admitted for IV antibiotics and possible surgery. She has been NPO since midnight. She has tenderness along the flexor tendon sheath. She had a culture that grew group C strep. She had once local she was in the hospital today. Packing replaced to her fail on incisions. States her swelling has not really changed throughout the day. She tends to be a tender along the flexor surface. Has a slight flexed posture and decreased range of motion pain with passive stretch. Patient History Medical History Abnormal Pap smear of cervix (Resolved 1987) Colon polyps (Resolved 2008) Colon polyps (Resolved 2010) GERD (gastroesophageal reflux disease) (Chronic) Hepatitis C (Chronic 2013) Hiatal hernia (Chronic 2007) Syphilis (Resolved ~1970) Surgical History Anesthesia (Resolved) History of tonsillectomy (Resolved ~1963) History of total left knee replacement (TKR) (Resolved 03/30/17) S/P foot surgery, left (Acute) Status post breast reduction (Resolved 1999) Status post colonoscopy (Resolved 2008) Status post colonoscopy (Resolved 2011) Status post dilation and curettage (Resolved) Status post knee surgery (Resolved 03/2012) Status post knee surgery (Resolved 2011) Status post LASIK surgery (Acute) Status post trigger finger release (Acute) Status post tubal ligation (Resolved 1987) Family & Social History Family History Unknown No problems noted. Social History: household members spouse Safety & Behavioral: Feels Safe in Current Yes Environment Been Physically Hurt or No Threatened By a Person Suicidal Ideation Description None Suicide Plan Description No Plan Tobacco & Substance use: Smoking Status Never smoker alcohol intake former Substance Use Type does not use Meds Home Medications and Allergies Allergies Allergy/AdvReac Type Severity Reaction Status Date / Time No Known Drug Allergies Allergy Verified 04/02/20 07:10 Review of Systems Review of Systems ROS: Yes All systems reviewed with the patient and are negative except as otherwise documented Exam Vital Signs (past 8 hours): - 04/02/20 11:00 04/02/20 15:00 Temperature 97.7 F 98.0 F Pulse Rate 64 66 Respiratory Rate 16 18 Blood Pressure 134/91 H 122/72 Pulse Oximetry 100 98 Oxygen Delivery Method Room Air Oxygen Flow Rate 0 Narrative Exam Narrative: General exam alert and oriented female no acute distress lying in bed at bedside Respiratory exam unlabored on room air lungs clear to auscultation bilaterally CV exam regular rate and rhythm Abdomen exam benign Musculoskeletal exam moving a right upper extremity without difficulty full range of motion of the digits. Left upper extremity shows swelling over the flexor surface of the middle finger there are 2 parallel I&D incisions from the Phalen incision. No purulence drainage. There is tenderness over the flexor sheath. And swelling. Slight flexed posture. Pain with passive stretch. Tenderness over the A1 essence. Very faint erythema up into the palm and the dorsum of the forearm. Forearm compartments are soft. Objective Labs Result Diagrams: 04/02/20 07:25 04/02/20 07:25 Labs: Laboratory Results - last 24 hr 04/02/20 04/02/20 04/02/20 07:25 07:25 07:25 WBC 6.2 RBC 4.71 Hgb 15.0 Hct 43.1 MCV 91.5 MCH 31.9 MCHC 34.8 RDW 13.2 Plt Count 233 Neut % (Auto) 66.0 Lymph % (Auto) 18.2 L [place] % (Auto) 10.8 Eos % (Auto) 4.0 Baso % (Auto) 1.0 Neut # (Auto) 4100 Lymph # (Auto) 1100 [place] # (Auto) 700 Eos # (Auto) 200 Baso # (Auto) 100 Sodium 139 Potassium 3.7 Chloride 109 H Carbon Dioxide 24 BUN 16 Creatinine 0.53 Estimated GFR > 60.0 BUN/Creatinine Ratio 30.2 H Glucose 93 Lactate Calcium 9.3 Procalcitonin < 0.05 COVID-19 PCR 04/02/20 04/02/20 07:25 08:01 WBC RBC Hgb Hct MCV MCH MCHC RDW Plt Count Neut % (Auto) Lymph % (Auto) [place] % (Auto) Eos % (Auto) Baso % (Auto) Neut # (Auto) Lymph # (Auto) [place] # (Auto) Eos # (Auto) Baso # (Auto) Sodium Potassium Chloride Carbon Dioxide BUN Creatinine Estimated GFR BUN/Creatinine Ratio Glucose Lactate 0.7 Calcium Procalcitonin COVID-19 PCR Negative Assessment & Plan Assessment and plan (1) Felon of finger of left hand: Status: Acute (2) Flexor tenosynovitis of finger: Problem details: Patient has a left middle finger flexor tenosynovitis. This appears to have avulsed from the felon She has no known puncture injury but she has been working in the dirt. Grew strep see from the wound yesterday. Has been on IV antibiotics with vancomycin and Unasyn. She has positive [place] signs consistent with flexor tenosynovitis. Discussed on no improvement on IV antibiotics recommend surgery for irrigation debridement. Patient understands agrees with plan. The risks and benefits of the procedure have been discussed with the patient even opportunity to ask questions. The risks of surgery include but are not limited to infection, need for additional procedures, stiffness persistence of pain, damage to nerves and blood vessels, posttraumatic arthritis, DVT, PE, cardiopulmonary complications and . The patient expressed a thorough understanding of the risks and benefits of surgery and has elected to proceed. Consent was signed. Discussed the lucency mentioned on the radiograph does not appear to be any specific injury and may be chronic in nature. The patient has no extensor lag. Status: Acute Quality VTE Deep Vein Thrombosis/Pulmonary Embolism Present on Admission: No
--- NOTE | 2020-04-02 18:39 | PM.PREOP ---
Pre-operative Note COVID-19 COVID-19 status: Negative Result date/Date tested (Pos, Neg/Pending): 04/02/20 Interval Note History & Physical reviewed/Exam performed by Physician: Yes Changes to H&P: No
--- NOTE | 2020-04-02 18:59 | P.OP_ITS ---
Operative Date/Time/Diagnoses Date of procedure: 04/02/20 Time of procedure: 18:59 Pre-op diagnosis: Left middle finger flexor tenosynovitis m65.849 Post-op diagnosis: same Procedure & Clinicians Procedure: Irrigation debridement left middle finger flexor tenosynovitis cpt code 70147 Same procedure as scheduled: Yes Indications: Patient is a 65-year-old [id number] female who presents with 24 hours of left middle finger swelling and pain. She had a appearance of fell on at the ER. She had an I&D and a dose of antibiotics she worsened overnight presented with increased swelling over the flexor surface of her middle finger and decreased range of motion. She was admitted for IV antibiotics. She was found to have positive can able signs of flexor tenosynovitis. A culture from the ER and demonstrated group C strep. She was indicated for operative debridement of her flexor tenosynovitis. The risks and benefits of the procedure have been discussed with the patient even opportunity to ask questions. The risks of surgery include but are not limited to infection, need for additional procedures, stiffness, persistence of pain, damage to nerves and blood vessels, posttraumatic arthritis, DVT, PE, cardiopulmonary complications and . The patient expressed a thorough understanding of the risks and benefits of surgery and has elected to proceed. Consent was signed. Surgeon: Sahra Salvador Click Yes if Unassisted: Yes Anesthesia Type: General and Local Operative Notes Findings: Swollen left middle finger. Ulnar incision over the A1 essence was made as well as a distal mid axial incision. Upon entering the flexor sheath there was a small egress of clear fluid cultures were sent. No gross purulence was demonstrated. A 16 gauge angio catheter was threaded from proximal to distal into the flexor tendon sheath and approximately 100 cc of saline was slowly 8 irrigated through the tendon sheath using a 20 cc syringe. Additionally the family on incisions were irrigated. Closure Type: not applicable Specimen(s): other (Cultures swabs) Estimated Blood Loss (mL): 2 Blood products transfused: none Tourniquet time (min): 21 Procedure in detail: Patient was seen in the preoperative area the surgery site of his marked informed consent confirmed. The patient was brought back to the operating room by the anesthesia team. Patient was positioned supine on the operative table. Anesthetic was administered. The left upper extremity this placed onto a hand table. A nonsterile brachial tourniquet was placed. The left upper extremities prepped and draped in a standard sterile fashion. A fo rmal time-out procedure was performed confirming the patient's side and site of surgery and presence of informed consent. The patient was on scheduled antibiotics. All were in agreement. Attention was turned to the left middle finger. A incision that was oblique was marked out over the area of the A1 essence. 5 cc of local anesthetic with 0.25% Marcaine with epinephrine was injected for local anesthetic and a digital block. Incision was taken through the skin and soft tissues at the palm. The blunt dissection was then done with the tenotomy scissors and the Lee retractors. The A1 essence was identified. Leading edge was incised to allow entry into the flexor tendon sheath and a 16 gauge angiocatheter was threaded into the tendon sheath. There was a small egress of fluid when the sheath was opened and this was sent for culture. Next attention was turned to the mid axial incision was made the radial aspect of the middle phalanx just proximal to the DIP. Care was taken to make sure that the incision was well dorsal of the neurovascular bundle. The flexor tendon sheath was entered. At this point 100 cc was flashed through the angiocatheter slowly noted to enter approximately an exit distally at the mid axial incision. Thorough irrigation was completed. Following this catheter was reversed from distal to proximal for some additional irrigation. Additionally the to fail on incisions and the pulp of the finger from the ER were also irrigated. A final 2 cc of local anesthetic was injected. Tourniquet was released. Hemostasis was achieved. Dressings were placed. By the time the procedure and and in the patient was taken to the PACU the digit had pinked up very nicely. The incisions were left open. They were packed with saline gauze. And a sterile dressing was placed. There were no immediate complications from the procedure. All counts were correct Complications: none Post-operative Condition: stable Disposition: PACU Plan for aftercare: Returned to the floor. Tomorrow morning start b.i.d. warm soapy soaks. Replace new gauze packing at the end of the soak. Incisions will heal fully by secondary intention. Will remain on IV antibiotics for approximately 48 -72 hours or until significantly improved clinical appearance then transition to oral antibiotics for 10 days. Follow-up in Orthopedic Clinic 10-14 days
--- NOTE | 2020-04-02 19:29 | SUR.OPER ---
Supine on padded OR bed, head on pillow, right arm secured on padded arm board at <90 degrees abduction, Left arm on padded arm table < 90 degrees abduction, legs uncrossed, safety belt at thigh.
[2020-04-02] MEDS: BUPIVACAINE 0.25% W/ EPI 30 ML VIAL INJ (19:44)
--- NOTE | 2020-04-02 20:42 | SUR.PHASEI ---
pt transferred to acute care floor. Bedside report given to RASHID Michaels. Pt at bedside. Transferred care to RASHID Michaels, vss. Pt alert and talking to RN and at bedside.
[2020-04-02] MEDS: DOCUSATE 100 MG CAPSULE PO (22:26)
[2020-04-02] MEDS: ACETAMINOPHEN 325 MG TABLET 975 MG PO (22:26)
[2020-04-03] VITALS (8 sets, daily range): BP systolic 104–129; BP diastolic 61–80; PULSE 59–69; RESP 16–18; TEMP 36.1–37.3; O2SAT 95–100
[2020-04-03] MEDS: AMPICILLIN/SULBACTAM 3 GM 3 GM in SODIUM CHLORIDE 0.9% 100 ML IV ×4 (01:37→21:00)
[2020-04-03] MEDS: ACETAMINOPHEN 325 MG TABLET 975 MG PO ×2 (06:28→14:20)
--- NOTE | 2020-04-03 08:16 | P.PN_ITS ---
Subjective Subjective Date Patient Seen: 04/03/20 Time Patient Seen: 08:16 Interval history: Patient is 65-year-old female presented with left middle finger flexor tenosynovitis. She is postop day 1 irrigation debridement. Culture from the ER came back group C strep. Intraoperative cultures are no growth so far. She is on Zosyn vancomycin. Denies fevers or chills. Exam Vital Signs (past 8 hours): - 04/03/20 04:15 Temperature 98.4 F Pulse Rate 68 Respiratory Rate 16 Blood Pressure 122/64 Pulse Oximetry 98 Oxygen Delivery Method Room Air Oxygen Flow Rate 0 Narrative Exam Narrative: Alert oriented female no acute distress Breathing unlabored on room CV regular rate and rhythm Musculoskeletal left upper extremity middle finger mild swelling and erythema improved from yesterday. Open and packed incisions at the palm a mid axial incision and the to felon distal pulp incisions. Previous area of demarcation the arm of heel is less swollen and resolved erythema. Formed compartments soft. Fingers pink and well perfused. Small amount of bleeding when packing is removed Objective Labs Result Diagrams: 04/02/20 07:25 04/02/20 07:25 Labs: Laboratory Results - last 24 hr 04/02/20 08:01 COVID-19 PCR Negative Assessment & Plan Post-op Postoperative Procedures: Procedures Operation Date: 04/02/20 18:25 Actual Procedures Side Surgeon p Irrigation /[place] Middle Finger Flexor Tenosynovitis Left Sahra Salvador MD postop day 1 I&D flexor tenosynovitis left middle finger. Start b.i.d. warm soapy soaks today. Then packing will be replaced. Continue IV antibiotics 48- 72 hours from surgery. Narrow antibiotics as indicated. If continues to improve after 48 hours antibiotic biotic switched to oral. Based on group C strep likely be able to switch IV to ceftriaxone and oral to amoxicillin on discharge. Discharge with 2 weeks oral antibiotics. Patient will continue b.i.d. warm soapy soaks and packing at home. As incisions heal by secondary intention. Follow up 1 week in Orthopedic Clinic with Dr. Salvador Quality VTE Deep Vein Thrombosis/Pulmonary Embolism Present on Admission: No
[2020-04-03] MEDS: DOCUSATE 100 MG CAPSULE PO ×2 (08:32→21:12)
--- NOTE | 2020-04-03 12:44 | PC.NURSE ---
Patients dressing to l.middle finger changed. She has two small incisions on each top of finger that were packed with gauze and an incision on the lower part of her back finger that was packed with gauze as well as incision on on palm. Then wrapped with non stick telfa and kurlex. Hand was soaked in warm soapy water for 20 minutes prior. Patient is voiding and steady on her feet. Her IV Vancomycin has been d/cd. She is resting and visiting with her and per will most likely be discharged on Monday after she has more iv antibiotcs.
--- NOTE | 2020-04-03 13:08 | CM.IDA ---
Initial DCP Assessment Note: Patient is a 65 yo female, resident of [place]. Patient presents after recent finger injury, which became infected and patient is now POD#1 from an I+D by Dr Salvador PCP: Arelis Mcgrath Payer: Prince HOOPER Reviewed chart. Met w/patient this morning during multidisciplinary rounds. Patient is indp. 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 Patient has no concerns about DC home at this time and has good family support. DC expected in the next 48-72 hrs. Patient is expected to remain on IV abx while admitted but expected to DC on po abx. P: DC home expected w/family via private auto This RN RADIOLOGY will follow closely in case DC needs or concerns arise. SIDDHARTHA Wagner Discharge Planning/Care Management CM Discharge Assessment Start: 04/03/20 12:49 Freq: Status: Active Protocol: Document 04/03/20 12:51 PILAR (Rec: 04/03/20 13:08 PILAR [id number]) Discharge Planning Assessment Assigned Living Nurse SIDDHARTHA Alexander DPOA/Assigned Designee Name Raman Bolivar dtr Contact Information [phone], cell Advance Directives? Yes: Health Care Directive History Provided By Patient Type of transportation used prior to Drives own vehicle admit Independent with ADL's Yes Is patient alert and oriented? Yes Barriers to Discharge No Discharge Plan Home Transportation Arrangement Family Referrals Initiated None needed
--- NOTE | 2020-04-03 14:06 | PM.PN.1 ---
Subjective Subjective Date Patient Seen: 04/03/20 Interval history: She is seen today to follow-up the left arm cellulitis and felon infection of the left middle finger. She is doing very well, is very engaging, and is looking forward to completing her antibiotics in 2 days and going home. The wound culture is still growing only the strep and so the vancomycin can be stopped. Exam Vital Signs (past 8 hours): - 04/03/20 08:09 Temperature 96.9 F L Pulse Rate 60 Respiratory Rate 16 Blood Pressure 112/72 Pulse Oximetry 98 Oxygen Delivery Method Room Air Oxygen Flow Rate 0 Narrative Exam Narrative: Alert and oriented x3. No apparent distress Heart is regular rate and rhythm without murmur Lungs are clear to auscultation bilaterally Extremities have no ankle edema. The left arm redness has diminished. There is a dressing in place over the left 3rd finger. Objective Labs Result Diagrams: 04/02/20 07:25 04/02/20 07:25 Assessment & Plan Assessment & Plan narrative: 1. Left middle finger tenosynovitis, present on admission, active -patient with failure of outpatient therapy and underwent surgical incision and drainage 04/02 -wound culture 04/01 from a ED grew beta-hemolytic strep organism which should be susceptible to penicillins and cephalosporins -blood cultures 04/01 and 04/02 pending -continue Unasyn for broad-spectrum coverage, stop vancomycin today -ortho consult and surgical treatment appreciated, discussed today. -hydrocodone as needed and morphine 1 mg IV q.4 hour as needed pain control COVID-19: Negative on 04/02/2020 Admit: Inpatient Code status: Full code Surrogate decision maker: Quality VTE Deep Vein Thrombosis/Pulmonary Embolism Present on Admission: No
[2020-04-04] VITALS (8 sets, daily range): BP systolic 120–157; BP diastolic 62–82; PULSE 58–67; RESP 16–61; TEMP 36.1–36.8; O2SAT 97–100
[2020-04-04] MEDS: AMPICILLIN/SULBACTAM 3 GM 3 GM in SODIUM CHLORIDE 0.9% 100 ML IV ×4 (02:14→20:15)
[2020-04-04 06:16] LABS: Blood Urea Nitrogen 9 mg/dL (7-17); Calcium 8.9 mg/dL (8.4-10.2); Carbon Dioxide 25 mmol/L (22-32); Chloride 110 mmol/L (98-107); Estimated Glomerular Filt Rate > 60.0 mL/min (>60); Glucose 104 mg/dL (80-110); HEMOLYSIS < 15 (0-50); Potassium 3.9 mmol/L (3.4-5.1); Sodium 139 mmol/L (137-145)
[2020-04-04] MEDS: ACETAMINOPHEN 325 MG TABLET 975 MG PO ×2 (06:54→21:28)
[2020-04-04] MEDS: SODIUM CHLORIDE 0.9% FLUSH 10 ML IV ×2 (08:07→20:15)
[2020-04-04] MEDS: SODIUM CHLORIDE 0.9% 250 ML 21 ML IV (08:07)
[2020-04-04] MEDS: DOCUSATE 100 MG CAPSULE PO ×2 (08:07→21:01)
--- NOTE | 2020-04-04 09:42 | PM.PN.1 ---
Subjective Subjective Date Patient Seen: 04/04/20 Time Patient Seen: 09:42 Interval history: She is seen today to follow-up the left arm cellulitis and infection of the left middle finger. She is doing very well, improving with her redness and warmth as it has seemingly resolved today. Plan for one more day of IV antibiotics and discharge home tomorrow. Exam Vital Signs (past 8 hours): - 04/04/20 04:35 Temperature 98.2 F Pulse Rate 66 Respiratory Rate 16 Blood Pressure 120/62 Pulse Oximetry 98 Oxygen Delivery Method Room Air Oxygen Flow Rate 0 Narrative Exam Narrative: GENERAL APPEARANCE: Well developed, well nourished, in no acute distress. SKIN: Inspection of the skin reveals no rashes, ulcerations or petechiae. HEENT: Normocephalic atraumatic, extraocular muscles are intact, oropharynx is clear and mucous membranes are moist, neck is supple without adenopathy NECK: Supple and symmetric. There was no thyroid enlargement, and no tenderness, or masses were felt. CHEST: Normal AP diameter and normal contour without any kyphoscoliosis. LUNGS: Auscultation of the lungs revealed no wheezes, rhonchi, or rales. CARDIOVASCULAR: There was a regular rate and rhythm without any murmurs, gallops, rubs. Peripheral pulses were 2+ and symmetric. ABDOMEN: Soft and nontender with normal bowel sounds. No ascites was noted. MUSCULOSKELETAL: There was no tenderness or effusions noted. Muscle strength and tone were normal. EXTREMITIES: No cyanosis, clubbing or edema. Left upper extremity with bandages in place that are clear dry and intact. Previously outlined erythema markings are present, there is now no erythema, tenderness, or warmth. NEUROLOGIC: Alert and oriented x 3. Normal affect. Gait was normal. Strength is +5/5 in the Upper Extremities and Lower Extremities Bilaterally. Sensation to touch was normal. Objective Labs Result Diagrams: 04/02/20 07:25 04/04/20 05:50 Labs: Laboratory Results - last 24 hr 04/04/20 05:50 Sodium 139 Potassium 3.9 Chloride 110 H Carbon Dioxide 25 BUN 9 Creatinine 0.41 L Estimated GFR > 60.0 BUN/Creatinine Ratio 22.0 Glucose 104 Calcium 8.9 Assessment & Plan Assessment & Plan narrative: 1. Left middle finger tenosynovitis, present on admission, active -patient with failure of outpatient therapy and underwent surgical incision and drainage 04/02 -wound culture 04/01 from a ED grew beta-hemolytic strep organism which should be susceptible to penicillins and cephalosporins -blood cultures 04/01 and 04/02 pending -continue Unasyn for broad-spectrum coverage, stop vancomycin today. Discharge with 2 weeks of amoxicillin. -ortho consult and surgical treatment appreciated. -hydrocodone as needed and morphine 1 mg IV q.4 hour as needed pain control COVID-19: Negative on 04/02/2020 Admit: Inpatient Code status: Full code Surrogate decision maker: Quality VTE Deep Vein Thrombosis/Pulmonary Embolism Present on Admission: No
--- NOTE | 2020-04-04 10:40 | PM.PN.1 ---
Subjective Subjective Date Patient Seen: 04/04/20 Time Patient Seen: 10:43 Interval history: Admitted for FTS. Doing well this am. Swelling improved. Pain improved. Exam Vital Signs (past 8 hours): - 04/04/20 04:35 04/04/20 08:00 Temperature 98.2 F 97.2 F L Pulse Rate 66 61 Respiratory Rate 16 16 Blood Pressure 120/62 157/78 H Pulse Oximetry 98 99 Oxygen Delivery Method Room Air Oxygen Flow Rate 0 Narrative Exam Narrative: Musculoskeletal left upper extremity forearm swelling and erythema improving. Open and packed incisions at the palm a mid axial incision and the to felon distal pulp incisions. Previous area of demarcation the arm of heel is less swollen and resolved erythema. Forearm soft. Fingers pink and well perfused. Objective Labs Result Diagrams: 04/02/20 07:25 04/04/20 05:50 Labs: Laboratory Results - last 24 hr 04/04/20 05:50 Sodium 139 Potassium 3.9 Chloride 110 H Carbon Dioxide 25 BUN 9 Creatinine 0.41 L Estimated GFR > 60.0 BUN/Creatinine Ratio 22.0 Glucose 104 Calcium 8.9 Assessment & Plan Assessment & Plan narrative: Patient is a 65 yo F who was admitted for treatemtn of FTS. She underwent I&D and is now on IV abx therapy. Plan for DC home monday with 2 weeks of amoxicillin. Time Spent With Patient Time with patient: less than 15 minutes Quality VTE Deep Vein Thrombosis/Pulmonary Embolism Present on Admission: No
[2020-04-05] MEDS: AMPICILLIN/SULBACTAM 3 GM 3 GM in SODIUM CHLORIDE 0.9% 100 ML IV ×2 (01:48→08:54)
[2020-04-05 05:26] VITALS: BP 125/74; PULSE 61; RESP 16; TEMP 36.6; O2SAT 97
--- NOTE | 2020-04-05 07:18 | P.DS_ITS ---
History of Present Illness History of Present Illness Date Patient Seen: 04/05/20 Time Patient Seen: 07:18 Chief complaint: red line up arm Narrative: As per Dr. Delcid, Patient is a 65-year-old female in generally good health who presented back to the ER for left middle finger infection. Yesterday morning she developed acute onset of swelling pain and redness in the finger which for within hours progressed up her arm. She presented to the ER and had a felon lanced at the distal end of the finger. She was given dose of IV antibiotic and discharged home on cephalexin with instructions to follow-up today. On presentation to the ER today the appearance of the finger looked worse prompting hospital admission. Patient states just in the last couple of hours she has noticed more redness and swelling at the proximal end of the finger as well as increased erythema up her arm to the elbow. She also was able to move her fingers some yesterday but not today. She denies fever, chills, nausea, vomiting. On laboratory evaluation WBC 6.2, procalcitonin normal. Finger x-ray from yesterday shows linear lucency in dorsal aspect of the distal phalanx suggestive of nondisplaced fracture. 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 She received dose of IV vancomycin and Unasyn in the ED and Dr. Salvador has been notified to see her for Ortho. Discharge Providers Provider Date of admission: 04/02/20 08:15 Discharge Date: 04/05/20 Primary care physician: SARAH Mckeon Consults: 04/02/20 07:40 Consult to Orthopedic Surgery Stat Comment: Consulting Provider: Sahra Salvador Reason for consultation: left middle finger infection Has provider been notified: Yes 04/02/20 10:54 Consult to Physician Routine Comment: Consulting Provider: Sahra Salvador Reason for consultation: Lt middle finger tenosynovitis Has provider been notified: Yes Discharge provider: Kendall Chun DO Summary Hospital Course Discharge Diagnosis: 1. Left 3rd digit tenosynovitis Hospital Course: This was the 65-year-old female who was admitted for left middle finger tenosynovitis. She had been treated as an outpatient but failed o ral therapy and underwent surgical drainage on 04/02. Wound culture from the emergency room he grew a beta-hemolytic streptococci. While patient was admitted orthopedics had recommended additional IV antibiotics with Unasyn. Patient was initially on vancomycin which was discontinued on 04/04. Orth opedics recommended discharge with 2 weeks of amoxicillin press, which was provided. Very much appreciate orthopedic consult and surgical interventions. Patient's pain is controlled and will discharge home today. Exam Vital Signs (past 8 hours): - 04/04/20 23:50 04/05/20 05:26 Temperature 98.0 F 97.9 F Pulse Rate 63 61 Respiratory Rate 16 16 Blood Pressure 136/67 125/74 Pulse Oximetry 97 97 Oxygen Delivery Method Room Air Oxygen Flow Rate 0 Narrative Exam Narrative: GENERAL APPEARANCE: Well developed, well nourished, in no acute distress. SKIN: Inspection of the skin reveals no rashes, ulcerations or petechiae. HEENT: Normocephalic atraumatic, extraocular muscles are intact, oropharynx is clear and mucous membranes are moist, neck is supple without adenopathy NECK: Supple and symmetric. There was no thyroid enlargement, and no tenderness, or masses were felt. CHEST: Normal AP diameter and normal contour without any kyphoscoliosis. LUNGS: Auscultation of the lungs revealed no wheezes, rhonchi, or rales. CARDIOVASCULAR: There was a regular rate and rhythm without any murmurs, gallops, rubs. Peripheral pulses were 2+ and symmetric. ABDOMEN: Soft and nontender with normal bowel sounds. No ascites was noted. MUSCULOSKELETAL: There was no tenderness or effusions noted. Muscle strength and tone were normal. EXTREMITIES: No cyanosis, clubbing or edema. Left upper extremity with bandages in place that are clear dry and intact. Previously outlined erythema markings are present, there is now no erythema, tenderness, or warmth. NEUROLOGIC: Alert and oriented x 3. Normal affect. Gait was normal. Strength is +5/5 in the Upper Extremities and Lower Extremities Bilaterally. Sensation to touch was normal. Objective Labs Result Diagrams: 04/02/20 07:25 04/04/20 05:50 Discharge Plan Discharge Plan Patient Disposition: Home Discharge comment: You were admitted to the hospital with an infection in a tendon of your hand. You ultimately had surgery and improved with antibiotics. Beth garcia call to follow up with your surgeon in the clinic tomorrow. You will continue on two weeks of antibiotics. Discharge orders & Medications Prescriptions: New amoxicillin 500 mg tablet 500 mg PO Q8H 14 Days Qty: 42 RF: 0 Follow up/Referrals: Arelis Mcgrath ARNP [Primary Care Provider] - Discharge Health Status Health Concerns: L 3rd digit tenosynovitis Diet/Activity/Treatments Diet: Diet as Tolerated Activity: As tolerated Visit Report/Discharge Packet Instructions: DI for Tenosynovitis, Amoxicillin, DI for Incision and Drainage Visit Report Forms: Patient Portal/API, Stroke Signs & Symptoms Discharge Data Primary Care Provider: Arelis Mcgrath Quality VTE Deep Vein Thrombosis/Pulmonary Embolism Present on Admission: No
[2020-04-05 07:50] VITALS: O2SAT 97
[2020-04-05 08:14] VITALS: BP 133/74; PULSE 61; RESP 16; TEMP 36.7; O2SAT 97
[2020-04-05] MEDS: ACETAMINOPHEN 325 MG TABLET 975 MG PO (08:54)
[2020-04-05] MEDS: SODIUM CHLORIDE 0.9% FLUSH 10 ML IV (09:01)
--- NOTE | 2020-04-05 09:18 | PM.PN.1 ---
Subjective Subjective Date Patient Seen: 04/05/20 Time Patient Seen: 09:18 Interval history: Admitted for FTS. Doing well this am. Swelling improved. Pain improved. Intra-op cultures NGTD. Exam Vital Signs (past 8 hours): - 04/05/20 05:26 04/05/20 08:14 Temperature 97.9 F 98.1 F Pulse Rate 61 61 Respiratory Rate 16 16 Blood Pressure 125/74 133/74 Pulse Oximetry 97 97 Oxygen Delivery Method Room Air Oxygen Flow Rate 0 Narrative Exam Narrative: Musculoskeletal left upper extremity forearm swelling and erythema improving. Open and packed incisions at the palm a mid axial incision and the to felon distal pulp incisions. Previous area of demarcation the arm is less swollen and resolved erythema. Forearm soft. Fingers pink and well perfused. Objective Labs Result Diagrams: 04/02/20 07:25 04/04/20 05:50 Assessment & Plan Assessment & Plan narrative: Patient is a 65 yo F who was admitted for treatment of FTS. She underwent I&D and is now on IV abx therapy Intra-op culutres are NGTD. ER culture grew out strep species. DC home with 2 weeks of amoxicillin Follow up Dr. Marina 04/08/20 Quality VTE Deep Vein Thrombosis/Pulmonary Embolism Present on Admission: No
--- NOTE | 2020-04-05 11:11 | CM.DPC ---
DCP Discharge Home Per MD, pt is medically stable to d/c home today with no identified barriers to discharge and Ortho MD to complete final dressing change prior to d/c today. Per Ortho MD, pt's I&D site appears to be improving and completed bedside dressing change with follow up appointment in their office on 04/08/20 and oral abx. Plan: Patient to d/c home via family POV today and close follow up appointment with the orthopedic team this week and no SW needs at this time. SIDDHARTHA Reed
--- NOTE | 2020-04-05 13:51 | PC.NURSE ---
Discharge: Pt feels ready to d/c home. Dressing changed to lt hand, pt doing most of it herself and she had seen how the md did it yesterday. (This marketing underwriter did not care for pt yesterday) Wounds are healing, middle finger is still swollen. Does have brisk cap refill, radial pulse is present. Reviewed d/c packet. Rx has been esent to [facility] [place]. Spouse present at time of teaching. Pt d/c home via auto w/spouse. Had no concerns when she left. Given dressing supplies.
== END 2020-04-05 11:30 | disposition home or self-care (01) | DRG 558 ==
LOC: ED 07:49 → AC 09:11
PROVIDERS: Nurse Practitioner Adult Health; Orthopaedic Surgery Foot and Ankle Surgery; Admitting Provider Internal Medicine; Emergency Provider Emergency Medicine; PCP Nurse Practitioner; Referring Provider Emergency Medicine; Visit Provider Internal Medicine
PROC: 0R9 Upper Joints, Drainage (ICD-10-PCS; principal; 2020-04-02 18:25)
DX: M65.842 Other synovitis and tenosynovitis, left hand (principal); L03.012 Cellulitis of left finger; S67.193A Crushing injury of left middle finger, initial encounter; W23.0XXA Caught, crushed, jammed, or pinched between moving objects, initial encounter; B95.4 Other streptococcus as the cause of diseases classified elsewhere; Z11.59 Encounter for screening for other viral diseases
CPT/HCPCS: 10060; 36415; 64450; 73140; 80048; 80053; 83605; 83690; 84145; 85025; 85610; 85730; 87040; 87070; 87075; 87077; 87147; 87205; 87635; 96361; 96374; 96375; 99284; J0295; J1100; J1885; J2250; J2270; J2405; J2704; J3010

== ENCOUNTER 2020-07-18 19:30 | Observation (INO) | payer OTHER, SELFPAY ==
[2020-04-02 10:12] VITALS: BMI 31.2
[2020-07-18] VITALS (8 sets, daily range): BP systolic 121–147; BP diastolic 58–78; PULSE 50–63; RESP 18–29; TEMP 36.9; O2SAT 95–100; BMI 31.2
--- NOTE | 2020-07-18 19:35 | ED.GENADULT ---
HPI - General Adult General Chief complaint: Abdominal Pain Stated complaint: upper abdominal pain, hurts when taking breath Time Seen by Provider: 07/18/20 19:35 History of Present Illness HPI narrative: 65-year-old woman with a history of hepatitis-C post treatment with Harvoni, presents with 12 hours of increasing right upper abdominal pain. It started this morning has been associated with vomiting nausea and severe persistent pain. She is describes no fevers or chills. She states her last bowel movement was a couple of days ago which is usual for her. She states that she is passing very little gas but again notes that that is usual for her. She has no chest pain, dyspnea, orthopnea, palpitations, lower extremity edema, headache, cough. Related Data Home Medications Medication Instructions Recorded Confirmed calcium carbonate [Calcium 500] 1,000 mg PO DAILY 07/18/20 07/18/20 magnesium 30 mg PO DAILY 07/18/20 07/18/20 omega 0-asd-ggk-fish oil [Fish Oil] 1 cap PO DAILY 07/18/20 07/18/20 vitamin B complex [B 1 tab PO DAILY 07/18/20 07/18/20 Complex-Vitamin B12] Allergies Allergy/AdvReac Type Severity Reaction Status Date / Time No Known Drug Allergies Allergy Verified 07/18/20 19:39 Review of Systems Review of Systems Narrative: Remainder of review of systems including constitutional, ENT, cardiovascular, respiratory, GI, , musculoskeletal, skin, neurologic and psychiatric systems reviewed and are unremarkable except as noted in HPI. Patient History Medical History Abnormal Pap smear of cervix (Resolved 1987) Colon polyps (Resolved 2010) Elevated TSH (Acute) Flexor tenosynovitis of finger (Inactive) GERD (gastroesophageal reflux disease) (Chronic) Hepatitis C (Chronic 2013) Hiatal hernia (Chronic 2007) Hypertension (Chronic) Osteopenia after menopause (Chronic) Syphilis (Resolved ~1970) Vitamin D deficiency (Acute) Surgical History Anesthesia (Resolved) History of tonsillectomy (Resolved ~1962) History of total left knee replacement (TKR) (Resolved 03/30/17) S/P foot surgery, left (Acute) Status post breast reduction (Resolved 1999) Status post colonoscopy (Resolved 2008) Status post colonoscopy (Resolved 2011) Status post dilation and curettage (Resolved) Status post knee surgery (Resolved 03/2012) Status post knee surgery (Resolved 2011) Status post LASIK surgery (Acute) Status post trigger finger release (Acute) Status post tubal ligation (Resolved 1987) Family History Unknown No problems noted. Social History household members: spouse Smoking Status: Never smoker second hand exposure: No alcohol intake: former substance use type: does not use Smoking Status: Never smoker Substance Use Type: does not use Exam Narrative Exam Narrative: General: Healthy appearing, in severe distress secondary to abdominal pain. Able to participate with history. Well-nourished well-developed HEENT: Moist mucous membranes, normal sclera with reactive pupils, Neck: supple Respiratory: Lungs are clear to auscultation, no wheezing no rales no rhonchi. Full and symmetrical air movement Cardiac: Tachycardic with Regular rate and rhythm no murmurs no bruits Abdomen: Soft with significant tenderness over the entire upper quadrant worse in the right upper quadrant with mild guarding but no rebound, hypoactive bowel tones, no flank pain Skin: Warm and dry, no rashes Neurologic: Grossly neurologically intact with no obvious asymmetries or abnormalities Extremities: No trauma, well perfused Psych: Cooperative, appropriate insight and affect Initial Vital Signs Initial Vital Signs: Vital Signs Pulse Rate 63 07/18/20 19:36 Blood Pressure 147/78 H 07/18/20 19:36 Pulse Oximetry 98 07/18/20 19:36 Course Orders Ordered: ED Orders 07/18/20 19:40 Complete Blood Count AUTO DIFF Stat Comprehensive Metabolic Panel Stat Lactate (Lactic Acid) Stat Lipase Stat 07/18/20 19:42 EKG-12 Lead Stat 07/18/20 21:00 CT abdomen pelvis w con Stat 07/18/20 22:45 COVID19 -ED/INPAT/OR/L&D Stat Acetaminophen (Tylenol) 650 mg PO Q6HR CONNIE Last Admin: 07/19/20 00:16 Dose: 650 mg Documented by: Hydromorphone HCl (Dilaudid) 1 mg IV Q4H PRN PRN Reason: Pain, Severe (7-10) Last Admin: 07/19/20 00:17 Dose: 1 mg Documented by: Lactated Ringer's (Lactated Ringers) 1,000 mls @ 100 mls/hr IV CONT CONNIE Piperacillin/Tazobactam/Dextrose (Zosyn) 3.375 gm in 50 mls @ 100 mls/hr IV Q6H CONNIE Ondansetron HCl (Zofran) 4 mg IV Q4HR PRN PRN Reason: Nausea And Vomiting Last Admin: 07/19/20 00:16 Dose: 4 mg Documented by: Discontinued Medications Hydromorphone HCl (Dilaudid) 0.5 mg IV NOW ONE Stop: 07/18/20 19:43 Last Admin: 07/18/20 19:50 Dose: 0.5 mg Documented by: LOPEZ Hydromorphone HCl (Dilaudid) 1 mg IV NOW ONE Stop: 07/18/20 21:01 Last Admin: 07/18/20 21:07 Dose: 1 mg Documented by: ELTON Sodium Chloride (Normal Saline 0.9%) 500 mls @ 1,000 mls/hr IV BOLUS ONE Stop: 07/18/20 20:11 Last Infusion: 07/18/20 20:35 Dose: 0 mls/hr Documented by: Admin: 07/18/20 19:50 Dose: 1,000 mls/hr Documented by: LOPEZ Piperacillin/Tazobactam/Dextrose (Zosyn) 3.375 gm in 50 mls @ 100 mls/hr IV NOW ONE Stop: 07/18/20 23:24 Last Infusion: 07/18/20 23:17 Dose: 0 mls/hr Documented by: Admin: 07/18/20 23:04 Dose: 100 mls/hr Documented by: MARGARITO Ondansetron HCl (Zofran) 4 mg IV NOW ONE Stop: 07/18/20 19:43 Last Admin: 07/18/20 19:50 Dose: 4 mg Documented by: LOPEZ Vital Signs Vital signs: Vital Signs - 8 hr 07/18/20 19:36 07/18/20 19:40 07/18/20 19:59 Temperature 98.5 F Pulse Rate 63 63 59 L Respiratory Rate 20 26 H Blood Pressure 147/78 H 147/78 H 139/63 Pulse Oximetry 98 99 100 07/18/20 20:00 07/18/20 20:01 07/18/20 20:30 Temperature Pulse Rate 58 L 58 L 59 L Respiratory Rate 29 H 23 20 Blood Pressure 130/61 137/65 Pulse Oximetry 100 100 99 07/18/20 21:00 Temperature Pulse Rate 50 L Respiratory Rate 18 Blood Pressure 140/63 Pulse Oximetry 100 Medical Decision Making Medical Records Medical records reviewed: Yes I reviewed the patient's medical records. Lab Data Lab results reviewed: Yes I reviewed the patient's lab results. Result diagrams: 07/18/20 19:40 07/18/20 19:40 Labs: Lab Results 07/18/20 07/18/20 07/18/20 Range/Units 19:40 19:40 19:40 WBC 12.6 H (4.5-11.0) X10^3/uL RBC 5.06 (4.0-5.2) X10^6/uL Hgb 15.4 (12.0-16.0) g/dL Hct 46.7 H (36-46) % MCV 92.4 (80-100) fL MCH 30.5 (26-34) PG MCHC 33.0 (30-36) % RDW 12.8 (11.6-14.8) % Plt Count 311 (150-400) X10^3/uL Neut % (Auto) 90.1 H (50-75) % Lymph % (Auto) 7.0 L (25-40) % Marshall % (Auto) 2.1 L (3-14) % Eos % (Auto) 0.4 L (2-4) % Baso % (Auto) 0.4 (0-2) % Neut # (Auto) 42530 H (0999-2164) /uL Lymph # (Auto) 900 L (7328-7686) /uL Marshall # (Auto) 300 (0-900) /uL Eos # (Auto) 0 (0-450) /uL Baso # (Auto) 100 (0-100) /uL Sodium 136 L (137-145) mmol/L Potassium 5.0 (3.4-5.1) mmol/L Chloride 103 (98-107) mmol/L Carbon Dioxide 26 (22-32) mmol/L BUN 15 (7-17) mg/dL Creatinine 0.36 L (0.52-1.04) mg/dL Estimated GFR > 60.0 (>60) mL/min BUN/Creatinine Ratio 41.7 H (6-22) Glucose 135 H (80-110) mg/dL Lactate 1.7 (0.7-2.1) mmol/L Calcium 9.2 (8.4-10.2) mg/dL Total Bilirubin 0.9 (0.2-1.3) mg/dL AST 54 H (14-36) IU/L ALT 19 (<35) IU/L Alkaline Phosphatase 65 (38-126) U/L Total Protein 8.8 H (6.3-8.2) g/dL Albumin 4.6 (3.5-5.0) g/dL Globulin 4.2 H (1.7-4.1) g/dL Albumin/Globulin Ratio 1.1 (1.0-2.8) Lipase 34 (23-300) U/L COVID-19 PCR (Negative) 07/18/20 Range/Units 22:45 WBC (4.5-11.0) X10^3/uL RBC (4.0-5.2) X10^6/uL Hgb (12.0-16.0) g/dL Hct (36-46) % MCV (80-100) fL MCH (26-34) PG MCHC (30-36) % RDW (11.6-14.8) % Plt Count (150-400) X10^3/uL Neut % (Auto) (50-75) % Lymph % (Auto) (25-40) % Marshall % (Auto) (3-14) % Eos % (Auto) (2-4) % Baso % (Auto) (0-2) % Neut # (Auto) (6960-5390) /uL Lymph # (Auto) (9375-1145) /uL Marshall # (Auto) (0-900) /uL Eos # (Auto) (0-450) /uL Baso # (Auto) (0-100) /uL Sodium (137-145) mmol/L Potassium (3.4-5.1) mmol/L Chloride (98-107) mmol/L Carbon Dioxide (22-32) mmol/L BUN (7-17) mg/dL Creatinine (0.52-1.04) mg/dL Estimated GFR (>60) mL/min BUN/Creatinine Ratio (6-22) Glucose (80-110) mg/dL Lactate (0.7-2.1) mmol/L Calcium (8.4-10.2) mg/dL Total Bilirubin (0.2-1.3) mg/dL AST (14-36) IU/L ALT (<35) IU/L Alkaline Phosphatase (38-126) U/L Total Protein (6.3-8.2) g/dL Albumin (3.5-5.0) g/dL Globulin (1.7-4.1) g/dL Albumin/Globulin Ratio (1.0-2.8) Lipase (23-300) U/L COVID-19 PCR Negative (Negative) Imaging Data CT scan - abdomen/pelvis: Radiologist's Impression: FINDINGS: Image quality: Excellent. ABDOMEN: Lung bases: Lung bases are clear. Heart size is normal. Trace fluid in the distal esophagus. Solid organs: Liver is normal in size and enhancement. Trace periportal edema. Gallbladder is distended. There is pericholecystic fluid. There is a low stone at the gallbladder neck measuring 2.5 cm, (2). Biliary system is non dilated. CBD measures 0.4 cm. Pancreas enhances normally. Spleen is normal in size and enhancement. No adrenal nodules. Kidneys demonstrate normal size and enhancement, without hydronephrosis. Peritoneum and bowel: Bowel loops demonstrate normal wall thickness and caliber. Appendix is partially visualized and is normal in caliber. No free fluid or air. Nodes and vessels: No retroperitoneal or mesenteric adenopathy by size criteria. Aorta and inferior vena cava are normal in size. Hepatic artery replaced to the SMA or accessory hepatic artery, (2/). Miscellaneous: No ventral hernias. PELVIS: Genitourinary: Bladder wall thickness is normal. Calcified uterine fibroids. Miscellaneous: No inguinal hernias or adenopathy. Bones: No suspicious bony lesions. No vertebral body compression fractures. IMPRESSION: 1. Distended gallbladder with pericholecystic fluid and a stone at the gallbladder neck. Findings most compatible with acute cholecystitis. 2. No biliary ductal dilatation. 3. No bowel obstruction. Dictated by: Darren Ayala M.D. on 07/18/2020 at 21:57 Approved by: Darren Ayala M.D. on 07/18/2020 at 22:05 ECG Data Attestation: I personally reviewed and interpreted this ECG as follows: Interpretation: Sinus rhythm at a rate of 67 Normal axis, normal intervals No acute ischemic changes MDM Narrative Medical decision making narrative: 65-year-old woman presents with severe upper quadrant abdominal pain for at least 12 hours. No prior incidence of similar. CT scan suggests acute cholecystitis with a 2.5 cm gallstone lodged at the gallbladder neck. She has a mildly elevated white count and is not immediately toxic. Pain has been controlled with Zofran, fluids and Dilaudid. Care is reviewed with Dr. Ochoa. Will be admitted to her service who with anticipation of cholecystectomy tomorrow. She will be started on Zosyn from the emergency department. She is hemodynamically stable and pain controlled at this point and is safe for transfer to the floor. Discharge Plan Departure Patient Disposition: Admitted As Inpatient Clinical Impression: Cholecystitis with cholelithiasis Qualifiers: Cholelithiasis location: gallbladder Cholecystitis acuity: acute Biliary obstruction: without biliary obstruction Qualified Code(s): K80.00 - Calculus of gallbladder with acute cholecystitis without obstruction Discharge Date/Time: 07/18/20 23:44 Admit Date/Time: 07/18/20 22:56 Admit Provider: Crystal Peña
[2020-07-18] MEDS: ONDANSETRON 4 MG/2 ML INJ IV (19:50)
[2020-07-18] MEDS: SODIUM CHLORIDE 0.9% 500 ML 1000 ML IV (19:50)
[2020-07-18] MEDS: HYDROMORPHONE 0.5 MG INJ IV (19:50)
[2020-07-18 20:00] LABS: Add Manual Diff / Slide Review NO; Basophils Absolute Auto 100 /uL (0-100); Basophils Percent Auto 0.4 % (0-2); Eosinophils Absolute Auto 0 /uL (0-450); Eosinophils Percent Auto 0.4 % (2-4); Hematocrit 46.7 % (36-46); Hemoglobin 15.4 g/dL (12.0-16.0); Lymphocytes Absolute Auto 900 /uL (1100-4500); Mean Corpuscular Hemoglobin 30.5 PG (26-34); Mean Corpuscular Volume 92.4 fL (80-100); Monocytes Absolute Auto 300 /uL (0-900); Monocytes Percent Auto 2.1 % (3-14); Neutrophils Absolute Auto 11400 /uL (1500-7000); Neutrophils Percent Auto 90.1 % (50-75); Platelet Count 311 X10^3/uL (150-400); Red Blood Cell Count 5.06 X10^6/uL (4.0-5.2); Red Cell Distribution Width 12.8 % (11.6-14.8); White Blood Cell Count 12.6 X10^3/uL (4.5-11.0)
[2020-07-18 20:04] LABS: Alanine Aminotransferase 19 IU/L (<35); Albumin 4.6 g/dL (3.5-5.0); Albumin Globulin Ratio 1.1 (1.0-2.8); Alkaline Phosphatase 65 U/L (38-126); Aspartate Aminotransferase 54 IU/L (14-36); BUN Creatinine Ratio 41.7 (6-22); Bilirubin Total 0.9 mg/dL (0.2-1.3); Blood Urea Nitrogen 15 mg/dL (7-17); Calcium 9.2 mg/dL (8.4-10.2); Carbon Dioxide 26 mmol/L (22-32); Chloride 103 mmol/L (98-107); Estimated Glomerular Filt Rate > 60.0 mL/min (>60); Globulin 4.2 g/dL (1.7-4.1); Glucose 135 mg/dL (80-110); Lipase 34 U/L (23-300); Sodium 136 mmol/L (137-145); Total Protein 8.8 g/dL (6.3-8.2)
[2020-07-18 20:06] LABS: HEMOLYSIS 141 (0-50)
--- NOTE | 2020-07-18 21:00 | DI.CT.S_ITS ---
PROCEDURE: CT ABDOMEN PELVIS W CON INDICATIONS: acute abdominal pain TECHNIQUE: After the administration of intravenous contrast, 5 mm thick sections acquired from the diaphragm to the symphysis. 5 mm coronal and sagittal reformats were acquired. For radiation dose reduction, the following was used: automated exposure control, adjustment of mA and/or kV according to patient size. COMPARISON: None. FINDINGS: Image quality: Excellent. ABDOMEN: Lung bases: Lung bases are clear. Heart size is normal. Trace fluid in the distal esophagus. Solid organs: Liver is normal in size and enhancement. Trace periportal edema. Gallbladder is distended. There is pericholecystic fluid. There is a low stone at the gallbladder neck measuring 2.5 cm, (11/27). Biliary system is non dilated. CBD measures 0.4 cm. Pancreas enhances normally. Spleen is normal in size and enhancement. No adrenal nodules. Kidneys demonstrate normal size and enhancement, without hydronephrosis. Peritoneum and bowel: Bowel loops demonstrate normal wall thickness and caliber. Appendix is partially visualized and is normal in caliber. No free fluid or air. Nodes and vessels: No retroperitoneal or mesenteric adenopathy by size criteria. Aorta and inferior vena cava are normal in size. Hepatic artery replaced to the SMA or accessory hepatic artery, (11/24). Miscellaneous: No ventral hernias. PELVIS: Genitourinary: Bladder wall thickness is normal. Calcified uterine fibroids. Miscellaneous: No inguinal hernias or adenopathy. Bones: No suspicious bony lesions. No vertebral body compression fractures. IMPRESSION: 1. Distended gallbladder with pericholecystic fluid and a stone at the gallbladder neck. Findings most compatible with acute cholecystitis. 2. No biliary ductal dilatation. 3. No bowel obstruction. Dictated by: Darren Ayala M.D. on 07/18/2020 at 21:57 Approved by: Darren Ayala M.D. on 07/18/2020 at 22:05
[2020-07-18] MEDS: HYDROMORPHONE 1 MG INJ IV (21:07)
[2020-07-18 21:11] LABS: Lactate (Lactic Acid) 1.7 mmol/L (0.7-2.1)
[2020-07-18] MEDS: PIPERACILLIN-TAZO 3.375 GM/50 ML FROZ.PIGGY IV (23:04)
[2020-07-18 23:22] LABS: COVID19 -Nasal RAPID Negative (Negative)
[2020-07-19] VITALS (24 sets, daily range): BP systolic 97–145; BP diastolic 46–78; PULSE 61–83; RESP 11–20; TEMP 36.2–36.9; O2SAT 94–100
--- NOTE | 2020-07-19 | PATH_ITS ---
[facility] Accession Number: [id number] . 01 Material submitted: . gallbladder - GALLBLADDER . 01 Clinical history: . UPPER ABDOMINAL PAIN, HURTS WHEN TAKING BREATH . 02 Diagnosis: Gallbladder, Cholecystectomy: Cholelithiasis with chronic active cholecystitis. No evidence of neoplasm. MRV 07/23/2020 1017 Local . 02 Electronically signed: . Aaron Moreno MD, PhD, Pathologist NPI- [id number] . 01 Gross description: . The specimen is received in formalin, labeled gallbladder and consists of a diffusely disrupted and fragmented gallbladder measuring 11.0 x 5.0 x 4.0 cm in aggregate with a 0.2 cm in diameter cystic duct. The serosa is jon-pink, focally hemorrhagic with fibrinous adhesions. Opening reveals a fragmented jon-green cholelith measuring 4.0 x 3.0 x 2.8 cm in aggregate. The mucosa is jon-pink to jon-green, granular to velvety, and the wall thickness measures 0.2 cm. Media Relations Manager sections are submitted, to include the en face cystic duct margin (blue), body and fundus in cassette A1. ([id number]) /[facility] 07/21/2020 1716 Local . 02 Pathologist provided ICD-10: K80.60, K81.2 . 02 CPT . [id number] Performed at: 01 [facility] [address], [place], [place] [id number] MD Duane Burt MD Phone: [phone] Performed at: 02 [facility] [address] , [place], [place] [id number] MD Rena Singer MD Phone: [phone]
[2020-07-19] MEDS: ONDANSETRON 4 MG/2 ML INJ IV ×3 (00:16→17:19)
[2020-07-19] MEDS: ACETAMINOPHEN 325 MG TABLET 650 MG PO ×4 (00:16→23:57)
[2020-07-19] MEDS: HYDROMORPHONE 2 MG INJ 1 MG IV ×2 (00:17→05:05)
[2020-07-19] MEDS: LACTATED RINGERS 1,000 ML 100 ML IV ×3 (00:24→23:57)
--- NOTE | 2020-07-19 01:04 | PC.ADMIT ---
Addendum entered by Tim Early R.N. 07/19/20 06:21: Pt is NPO except for meds. Original Note: [email or web address] Admission Note: The patient,Manju Bolivar,65 y/o, was given written information regarding hospital policies, unit procedures and contact persons. Patient's smoking status: Never smoker. Report received from Richelle MIKE. Pt arrived stable, via wheelchair from ED. A&Ox4. Self transferred into bed - steady on her feet. Pt has complaint of epigastric pain consistent w/pain she had been experiencing much of the day. Medicated w/good results w/1mg Dilaudid. Pt also given zofran due to vomiting. Admit complete, med req completed in ED, skin check completed. Pt has been NPO since midnight pending surgery in the AM. Vital Signs - 8 hr 07/18/20 19:36 07/18/20 19:40 07/18/20 19:42 Temperature 98.5 F 97.7 F Pulse Rate 63 63 67 Respiratory Rate 20 14 Blood Pressure 147/78 H 147/78 H 129/78 Pulse Oximetry 98 99 100 07/18/20 19:59 07/18/20 20:00 07/18/20 20:01 Temperature Pulse Rate 59 L 58 L 58 L Respiratory Rate 26 H 29 H 23 Blood Pressure 139/63 130/61 Pulse Oximetry 100 100 100 07/18/20 20:30 07/18/20 21:00 07/18/20 23:47 Temperature Pulse Rate 59 L 50 L 61 Respiratory Rate 20 18 Blood Pressure 137/65 140/63 121/58 L Pulse Oximetry 99 100 95
[2020-07-19] MEDS: PIPERACILLIN-TAZO 3.375 GM/50 ML FROZ.PIGGY IV (05:05)
--- NOTE | 2020-07-19 06:32 | PM.HP.1 ---
History of Present Illness History of Present Illness Date Patient Seen: 07/19/20 Time Patient Seen: 06:32 Date of Onset of Symptoms: 07/18/20 Chief complaint: upper abdominal pain, hurts when taking breath Narrative: This is a 65-year-old woman with history of GERD, hypertension, and hepatitis-C treated with Harvoni, who came into the ER last evening with severe epigastric right upper quadrant pain and nausea. She said the pain started on the same day, and she has had similar symptoms in the past, but they usually resolve relatively quickly. In this case she was not able to get the symptoms to relent, and so she came into the ER. In the ER she was found to have a white count of 12.6, a slightly elevated AST, and normal bilirubin. She had a CT scan which showed a thickened gallbladder with pericholecystic fluid, and a gallstone lodged in the neck of the gallbladder. Overnight her pain has subsided somewhat with narcotic pain medication, but she is still quite uncomfortable, with similar symptoms. ROS: She denies fevers or chills. She states her last bowel movement was a couple of days ago which is usual for her. She states that she is passing very little gas but again notes that that is usual for her. She has no chest pain, dyspnea, orthopnea, palpitations, lower extremity edema, headache, cough. Thirteen system review is otherwise negative other than as mentioned below and in HPI. GENERAL: Alert, comfortable, in no apparent distress. Appears stated age. Answers questions promptly and appropriately. Vital signs noted. HENT: Normocephalic, atraumatic. Hearing intact. EYES: Conjunctiva pink, sclera white, no periorbital swelling. CARDIOVASCULAR: Regular rate. No pedal edema. RESPIRATORY: Non-tachypneic, breathing comfortably on room air. GASTROINTESTINAL: Abdomen soft and non-distended, mild to moderate tenderness to palpation in the epigastrium and right upper quadrant GENITALURINARY: No flank tenderness. MUSCULOSKELETAL: Equal tone and mass bilaterally. SKIN: Warm, dry, soft, appropriate color for ethnicity. No other lesions, rashes, or wounds. NEURO: Alert and Oriented X 3. No gross sensory deficits, or cognitive issues. PSYCH: Appropriate affect and mood. Patient History Medical History Abnormal Pap smear of cervix (Resolved 1987) Colon polyps (Resolved 2010) Elevated TSH (Acute) Flexor tenosynovitis of finger (Inactive) GERD (gastroesophageal reflux disease) (Chronic) Hepatitis C (Chronic 2013) Hiatal hernia (Chronic 2007) Hypertension (Chronic) Osteopenia after menopause (Chronic) Syphilis (Resolved ~1970) Vitamin D deficiency (Acute) Surgical History Anesthesia (Resolved) History of tonsillectomy (Resolved ~1962) History of total left knee replacement (TKR) (Resolved 03/30/17) S/P foot surgery, left (Acute) Status post breast reduction (Resolved 1999) Status post colonoscopy (Resolved 2008) Status post colonoscopy (Resolved 2011) Status post dilation and curettage (Resolved) Status post knee surgery (Resolved 03/2012) Status post knee surgery (Resolved 2011) Status post LASIK surgery (Acute) Status post trigger finger release (Acute) Status post tubal ligation (Resolved 1987) Family & Social History Family History Unknown No problems noted. Social History: household members spouse Prior Living Arrangements RV Safety & Behavioral: Feels Safe in Current Yes Environment Been Physically Hurt or No Threatened By a Person Suicidal Ideation Description None Tobacco & Substance use: Smoking Status Never smoker alcohol intake former Substance Use Type does not use Meds Home Medications and Allergies Home Medications Medication Instructions Recorded Confirmed Type calcium carbonate [Calcium 500] 1,000 mg PO DAILY 07/18/20 07/18/20 History magnesium 30 mg PO DAILY 07/18/20 07/18/20 History omega 5-lry-deg-fish oil [Fish Oil] 1 cap PO DAILY 07/18/20 07/18/20 History vitamin B complex [B 1 tab PO DAILY 07/18/20 07/18/20 History Complex-Vitamin B12] Allergies Allergy/AdvReac Type Severity Reaction Status Date / Time No Known Drug Allergies Allergy Verified 07/18/20 19:39 Exam Vital Signs (past 8 hours): - 07/18/20 23:47 07/19/20 00:20 07/19/20 05:00 Temperature 97.7 F 98.5 F Pulse Rate 61 67 81 Respiratory Rate 14 13 Blood Pressure 121/58 L 129/78 110/59 L Pulse Oximetry 95 100 97 Oxygen Delivery Method Room Air Objective Imaging CT scan - abdomen: Radiologist's impression: CT scan - abdomen/pelvis: Radiologist's Impression: FINDINGS: Image quality: Excellent. ABDOMEN: Lung bases: Lung bases are clear. Heart size is normal. Trace fluid in the distal esophagus. Solid organs: Liver is normal in size and enhancement. Trace periportal edema. Gallbladder is distended. There is pericholecystic fluid. There is a low stone at the gallbladder neck measuring 2.5 cm, (11/27). Biliary system is non dilated. CBD measures 0.4 cm. Pancreas enhances normally. Spleen is normal in size and enhancement. No adrenal nodules. Kidneys demonstrate normal size and enhancement, without hydronephrosis. Peritoneum and bowel: Bowel loops demonstrate normal wall thickness and caliber. Appendix is partially visualized and is normal in caliber. No free fluid or air. Nodes and vessels: No retroperitoneal or mesenteric adenopathy by size criteria. Aorta and inferior vena cava are normal in size. Hepatic artery replaced to the SMA or accessory hepatic artery, (11/24). Miscellaneous: No ventral hernias. PELVIS: Genitourinary: Bladder wall thickness is normal. Calcified uterine fibroids. Miscellaneous: No inguinal hernias or adenopathy. Bones: No suspicious bony lesions. No vertebral body compression fractures. IMPRESSION: 1. Distended gallbladder with pericholecystic fluid and a stone at the gallbladder neck. Findings most compatible with acute cholecystitis. 2. No biliary ductal dilatation. 3. No bowel obstruction. Labs Result Diagrams: 07/18/20 19:40 07/18/20 19:40 Labs: Laboratory Results - last 24 hr 07/18/20 07/18/20 07/18/20 19:40 19:40 19:40 WBC 12.6 H RBC 5.06 Hgb 15.4 Hct 46.7 H MCV 92.4 MCH 30.5 MCHC 33.0 RDW 12.8 Plt Count 311 Neut % (Auto) 90.1 H Lymph % (Auto) 7.0 L [place] % (Auto) 2.1 L Eos % (Auto) 0.4 L Baso % (Auto) 0.4 Neut # (Auto) 84719 H Lymph # (Auto) 900 L [place] # (Auto) 300 Eos # (Auto) 0 Baso # (Auto) 100 Sodium 136 L Potassium 5.0 Chloride 103 Carbon Dioxide 26 BUN 15 Creatinine 0.36 L Estimated GFR > 60.0 BUN/Creatinine Ratio 41.7 H Glucose 135 H Lactate 1.7 Calcium 9.2 Total Bilirubin 0.9 AST 54 H ALT 19 Alkaline Phosphatase 65 Total Protein 8.8 H Albumin 4.6 Globulin 4.2 H Albumin/Globulin Ratio 1.1 Lipase 34 COVID-19 PCR 07/18/20 22:45 WBC RBC Hgb Hct MCV MCH MCHC RDW Plt Count Neut % (Auto) Lymph % (Auto) [place] % (Auto) Eos % (Auto) Baso % (Auto) Neut # (Auto) Lymph # (Auto) [place] # (Auto) Eos # (Auto) Baso # (Auto) Sodium Potassium Chloride Carbon Dioxide BUN Creatinine Estimated GFR BUN/Creatinine Ratio Glucose Lactate Calcium Total Bilirubin AST ALT Alkaline Phosphatase Total Protein Albumin Globulin Albumin/Globulin Ratio Lipase COVID-19 PCR Negative Assessment & Plan Assessment and plan (1) Hypertension: Status: Chronic (2) Cholecystitis with cholelithiasis: Qualifiers: Biliary obstruction: without biliary obstruction Cholecystitis acuity: acute Cholelithiasis location: gallbladder Qualified Code(s): K80.00 - Calculus of gallbladder with acute cholecystitis without obstruction Status: Acute (3) Hepatitis C: Problem details: Treated with Harvoni; negative count 04/2016 Status: Chronic Assessment & Plan narrative: This is a 65-year-old woman with acute cholecystitis and cholelithiasis. We will plan on laparoscopic cholecystectomy today to be done by Dr. Little. I discussed with the patient the risks and benefits of surgery, including risk of bleeding, infection, damage to nearby structures, need for additional procedures, need for transfer to a tertiary center, bile leak, need for drain placement, need for open surgery, bile duct injury, hernia formation, chronic diarrhea. The patient desires to proceed with surgery today. I had her sign a consent form, but Dr. Little will also speak to her prior to surgery. Plan: NPO except meds IV Zosyn IV fluids IV and p.o. pain meds as needed IV antiemetic as needed Home meds COVID-19 COVID-19 status: Negative Result date/Date tested (Pos, Neg/Pending): 07/18/20 Time Spent With Patient Time with patient: 25 - 35 minutes Quality VTE Deep Vein Thrombosis/Pulmonary Embolism Present on Admission: No
--- NOTE | 2020-07-19 10:02 | PC.NURSE ---
Pt to OR via bed by OR personnel. Consent signed. Chart with Pt. IV HL.
[2020-07-19] MEDS: SCOPOLAMINE 1 PATCH TOP (10:10)
--- NOTE | 2020-07-19 10:12 | PM.PREOP ---
Pre-operative Note COVID-19 COVID-19 status: Negative Result date/Date tested (Pos, Neg/Pending): 07/18/20 Interval Note History & Physical reviewed/Exam performed by Physician: Yes Changes to H&P: No H&P completed within 30 days and has changed as indicated here:: I have discussed op including risks of bleeding, infection, injury to internal organs (would need a major operation to fix) bile leakage, possible cholangiogram, possible need for post op ERCP, hernia with patient. Talked to her about post op restrictions. Will proceed. All questions answered.
[2020-07-19] MEDS: LACTATED RINGERS 1,000 ML 42 ML IV ×2 (10:13→12:48)
[2020-07-19] MEDS: CEFAZOLIN 2 GM/100 ML FROZ.PIGGY IV (10:36)
--- NOTE | 2020-07-19 10:53 | SUR.OPER ---
Supine on padded OR bed, head on pillow, safety belt at thigh, left arm padded and tucked at side. Right arm secured on padded arm board <90 degrees abduction. Legs uncrossed. Padded footboard in place. Tape over blanket to secure lower legs.
[2020-07-19] MEDS: BUPIVACAINE 0.5% (PF) VIAL 30 ML INJ (11:10)
--- NOTE | 2020-07-19 12:53 | SUR.PHASEI ---
Patient awake to verbal stimuli and denies any pain or nausea at this time. Advised patient that surgery was successful. V/U.
[2020-07-19] MEDS: HYDROMORPHONE 2 MG INJ IV (13:11)
--- NOTE | 2020-07-19 13:11 | P.OP_ITS ---
Operative Date/Time/Diagnoses Date of procedure: 07/19/20 Time of procedure: 13:00 Pre-op diagnosis: Acute cholecystitis with cholelithiasis with hydrops Post-op diagnosis: same Procedure & Clinicians Procedure: Laparoscopic cholecystectomy Same procedure as scheduled: Yes Indications: Acute right upper quadrant pain and a markedly abnormal CT scan Surgeon: Chicho Little Click Yes if Unassisted: Yes Anesthesia Type: General Operative Notes Findings: Markedly thickened edematous gallbladder wall with a single very large stone. A very dilated gallbladder filled with pale green fluid. Closure Type: primary Specimen(s): other (Gallbladder) Prosthetic devices, grafts, tissues, transplants, or devices: None Applied: drain(s) (7 mm Aaron-Oneil in the gallbladder fossa) Estimated Blood Loss (mL): 40 Blood products transfused: none Procedure in detail: The patient was placed supine on the operating room table and underwent general endotracheal anesthesia. The patient was prepped and draped in the usual fashion. Local anesthetic was infiltrated near the umbilicus and curvilinear incision made and carried down through fascia into the peritoneal cavity. Stay sutures of 0 Vicryl were placed in the fascia. A 12 mm port was placed. The abdomen was insufflated. The patient was repositioned. Local anesthetic was infiltrated in 3 areas under the right costal margin and 3D incisions made followed by placing 3 5 mm ports under direct laparoscopic camera vision internally. The gallbladder identified is a thickened pale structure encased in omentum. With blunt and some cautery dissection I the gallbladder from the encasing omentum. Due to his very large size I inserted a needle and withdrew approximately 120 cc of slightly green tinged fluid suggesti ve of hydrops. Dissection was then begun near the gallbladder end. I Identified a posterior artery that had a clip placed across it before was divided. A 2nd clip was added once divided. A ductal structure singular nature going directly the gallbladder was from surrounding structures. Three clips were placed across it and it was divided leaving 2 in the patient. I did not feel cholangiograms necessary given the findings of hydrops 1 large stone, and fairly normal LFTs. Any thickened structure going directly the gallbladder had a clip placed across it before dividing it.. The gallbladder was then dissected from its bed in the liver using cautery. The gallbladder wall was quite thickened. It was detached and removed with some difficulty through the umbilical port due to the very large stone within it. I irrigated the right upper quadrant and placed a drain in the gallbladder fossa. This was brought out through the lateral most port site and secured with a 3 0 nylon.. the port sites were all irrigated. The stay sutures at the umbilicus were elevated. A 2 0 PDS suture was placed between them. The Vicryl and PDS sutures were then tied. The skin in all areas was closed with interrupted 4 0 Vicryl subcuticular stitches. Steri-Strips and Mastisol were applied. Band-Aids were placed and the patient was awakened, extubated and taken to the recovery area in good condition. Complications: none Post-operative Condition: stable Disposition: PACU Plan for aftercare: To observation
--- NOTE | 2020-07-19 13:38 | CM.DANOTE ---
Addendum entered by Loli Corona LPN 07/19/20 14:15: OP note now available: Laproscopic Cholecystectomy procedure. Pt in recovery and expected to return to her room this afternoon. Caseload numbers and triage dictates need to leave meeting pt to the DCP team on for tomorrow. At this point, d/c dispo is likely home when stable for same but needs prn followup. Original Note: Discharge Planning/Care Management DCP: assessment: initiated: Case received, EMR reviewed. Discussed in Team Rounds. RN Coordinator Arnol stated that pt was scheduled to be taken to surgery today at 1000. Pt is a 65 year old female who admitted last night to care of [facility]. Dr. Little did take her to surgery at 1000. Advanced directive, confirm from FAMILY Start: 07/19/20 00:11 Freq: Q24H Status: Active Protocol: Document 07/19/20 00:11 RM (Rec: 07/19/20 00:42 RM [id number]) Advance Directive, confirm on record Time 00:15 Person contacted Marlyn Bolivar Copy received No Advanced directive available on record No CM Discharge Assessment Start: 07/19/20 13:36 Freq: Status: Active Protocol: Document 07/19/20 13:37 ITV (Rec: 07/19/20 13:38 ITV [id number]) Discharge Planning Assessment Advance Directives? Yes: Health Care Directive History Provided By Medical Record Has Patient been admitted in last 30 No days? Prior Living Arrangements RV Household Members spouse
--- NOTE | 2020-07-19 13:49 | PC.NURSE ---
Day shift: Pt back on AC unit at approx 1350 from PACU. Pain 3/. Denies any nausea. 3 lapsites are CDI. DESTINEY drain patent and depressed. DESTINEY drain site CDI also. VS WNL. Call light in reach. Pt's spouse Fernando in room for support.
[2020-07-19] MEDS: HYDROMORPHONE 1 MG INJ IV (17:19)
[2020-07-20 05:29] VITALS: BP 117/58; PULSE 57; RESP 16; TEMP 36.6
[2020-07-20 05:41] LABS: Add Manual Diff / Slide Review NO; Basophils Absolute Auto 0 /uL (0-100); Basophils Percent Auto 0.1 % (0-2); Eosinophils Absolute Auto 0 /uL (0-450); Hematocrit 39.4 % (36-46); Lymphocytes Absolute Auto 700 /uL (1100-4500); Lymphocytes Percent Auto 4.5 % (25-40); Mean Corpuscular Hemoglobin 30.8 PG (26-34); Mean Corpuscular Volume 93.5 fL (80-100); Monocytes Absolute Auto 700 /uL (0-900); Monocytes Percent Auto 4.5 % (3-14); Neutrophils Absolute Auto 13900 /uL (1500-7000); Neutrophils Percent Auto 90.9 % (50-75); Platelet Count 229 X10^3/uL (150-400); Red Blood Cell Count 4.22 X10^6/uL (4.0-5.2); White Blood Cell Count 15.3 X10^3/uL (4.5-11.0)
[2020-07-20] MEDS: ACETAMINOPHEN 325 MG TABLET 650 MG PO ×3 (05:48→17:45)
[2020-07-20] MEDS: KETOROLAC 30 MG/ML VIAL IV ×2 (05:48→12:34)
[2020-07-20 05:52] LABS: Alanine Aminotransferase 40 IU/L (<35); Albumin 3.2 g/dL (3.5-5.0); Alkaline Phosphatase 49 U/L (38-126); Aspartate Aminotransferase 55 IU/L (14-36); BUN Creatinine Ratio 20.4 (6-22); Bilirubin Total 0.4 mg/dL (0.2-1.3); Blood Urea Nitrogen 10 mg/dL (7-17); Calcium 8.7 mg/dL (8.4-10.2); Carbon Dioxide 30 mmol/L (22-32); Chloride 109 mmol/L (98-107); Estimated Glomerular Filt Rate > 60.0 mL/min (>60); Globulin 3.1 g/dL (1.7-4.1); Glucose 111 mg/dL (80-110); HEMOLYSIS < 15 (0-50); Potassium 3.9 mmol/L (3.4-5.1); Sodium 141 mmol/L (137-145); Total Protein 6.3 g/dL (6.3-8.2)
[2020-07-20 08:38] VITALS: BP 108/53; PULSE 60; RESP 19; TEMP 36.3; O2SAT 95
[2020-07-20] MEDS: LACTATED RINGERS 1,000 ML 100 ML IV (10:09)
[2020-07-20] MEDS: ONDANSETRON 4 MG/2 ML INJ IV (10:17)
[2020-07-20] MEDS: HYDROMORPHONE 1 MG INJ IV (10:18)
[2020-07-20 11:06] VITALS: BP 105/65; PULSE 59; RESP 18; TEMP 36.8; O2SAT 96
--- NOTE | 2020-07-20 11:17 | PC.NURSE ---
DAY SHIFT NOTE; PATIENT DENIES N/V. ENDORSES RUQ SORENESS 6/10 WHICH IS TOLERABLE TO HER, BUT WHEN PAIN INCREASES CLOSE TO 7/10 THEN SHE ACCEPTS DILAUDID IVP W/ PRE-MEDICATED W/ ZOFRAN TO PREVENT NAUSEA DUE TO NARCOTIC SIDE EFFECT. PAIN BACK DOWN TO 6/10, MUCH BETTER, I CAN MOVE AROUND MORE EASILY. PATIENT IS SITTING IN RECLINER AFTER UP TO BR, SBA THIS AM. IVF INFUSING ORDERED.
[2020-07-20 15:25] VITALS: BP 97/55; RESP 17; TEMP 36.6; O2SAT 99
--- NOTE | 2020-07-20 17:43 | P.DS_ITS ---
History of Present Illness History of Present Illness Date Patient Seen: 07/20/20 Time Patient Seen: 17:43 Chief complaint: upper abdominal pain, hurts when taking breath Narrative: Patient is a woman admitted with an abnormal CT scan and abdominal pain. The CT scan and symptoms suggested gallbladder disease. Discharge Providers Provider Date of admission: 07/18/20 22:56 Discharge Date: 07/20/20 Primary care physician: SARAH Mckeon Discharge provider: Chicho Little MD Summary Hospital Course Discharge Diagnosis: Acute and chronic cholecystitis with cholelithiasis. Obesity with a BMI of 31 Hospital Course: The patient underwent a laparoscopic cholecystectomy. She was found to have a very inflamed and thickened gallbladder. There was 1 large stone within the gallbladder. A drain was placed and she was kept for night after the operation. Ultimately she tolerated diet and desired to be discharged. There her drain was removed and she was discharged to follow up in the office. She does not tolerate many pain medications but seemed to tolerate allotted and tramadol so she was discharged on these along with anti nausea medicine should she need it. Status at Discharge Cognitive/behavioral status at discharge: oriented Functional status at discharge: independent ambulation Overall status at discharge: patient is progressing back to baseline Exam Vital Signs (past 8 hours): - 07/20/20 11:06 07/20/20 15:25 Temperature 98.3 F 97.9 F Pulse Rate 59 L Respiratory Rate 18 17 Blood Pressure 105/65 97/55 L Pulse Oximetry 96 99 Oxygen Delivery Method Room Air Oxygen Flow Rate 0 Objective Labs Result Diagrams: 07/20/20 05:07 07/20/20 05:07 Labs: Laboratory Results - last 24 hr 07/20/20 07/20/20 05:07 05:07 WBC 15.3 H RBC 4.22 Hgb 13.0 Hct 39.4 MCV 93.5 MCH 30.8 MCHC 33.0 RDW 13.0 Plt Count 229 Neut % (Auto) 90.9 H Lymph % (Auto) 4.5 L [place] % (Auto) 4.5 Eos % (Auto) 0.0 L Baso % (Auto) 0.1 Neut # (Auto) 21526 H Lymph # (Auto) 700 L [place] # (Auto) 700 Eos # (Auto) 0 Baso # (Auto) 0 Sodium 141 Potassium 3.9 Chloride 109 H Carbon Dioxide 30 BUN 10 Creatinine 0.49 L Estimated GFR > 60.0 BUN/Creatinine Ratio 20.4 Glucose 111 H Calcium 8.7 Total Bilirubin 0.4 AST 55 H ALT 40 H Alkaline Phosphatase 49 Total Protein 6.3 Albumin 3.2 L Globulin 3.1 Albumin/Globulin Ratio 1.0 Discharge Plan Discharge Plan Patient Disposition: Home Provider Discharge Comment: Your operation went well. You had a very sick gallbladder. If you develop constipation from the pain medication please take a laxative like milk of magnesia. He may have some bruising or minor bleeding. Apply direct pressure if there is bleeding. Discharge orders & Medications Prescriptions: New tramadol 50 mg tablet 50 mg PO Q6H PRN (Reason: pain, moderate) Qty: 14 RF: 0 hydromorphone [Dilaudid] 2 mg tablet 2 mg PO Q6H PRN (Reason: pain, severe) Qty: 10 RF: 0 ondansetron HCl [Zofran] 4 mg tablet 4 mg PO Q6H PRN (Reason: nausea and vomiting) Qty: 7 RF: 0 Continued calcium carbonate [Calcium 500] 500 mg calcium (1,250 mg) Tablet 1,000 mg PO DAILY RF: 0 vitamin B complex [B Complex-Vitamin B12] Tablet 1 tab PO DAILY RF: 0 magnesium 30 mg Tablet 30 mg PO DAILY RF: 0 omega 3-ydo-vkw-fish oil [Fish Oil] 1,000 mg (120 mg-180 mg) Capsule 1 cap PO DAILY RF: 0 Follow up/Referrals: Arelis Mcgrath ARNP [Primary Care Provider] - Chicho Little MD [Physician] - 2 Weeks (Please call my office tomorrow after 9:00 a.m. and make an appointment to see me in about 10-14 days. If you need to reach a doctor please call our office. If our office is closed, listen to the entire message and at the end of the message will be connected to the page letter stamping machine operator who will call the doctor on-call for our practice.) Diet/Activity/Treatments Diet: Diet as Tolerated Activity: Do not drive into her pain-free off medication. Do not lift over 10 lb or strain for the next 4 weeks. You may walk. No pool or tub for at least 2 weeks. Skin/Wound/Dressing Care Report to your healthcare provider any signs of infection, such as:: increased pain, unusual drainage and unusual redness Dressing: You may remove the Band-Aids tomorrow and shower. Change the gauze where the drain site was as often as necessary. You may have leakage tonight but it should seal and stop leaking fairly quickly. Visit Report/Discharge Packet Instructions: DI for Open Cholecystectomy, DI for Laparoscopy, DI for Prescription Opioid Use, [facility]: Wound Care Stand Alone Forms: Surgery Discharge Visit Report Forms: Congestive Heart Failure, Patient Portal/API, Stroke Signs & Symptoms Discharge Data Primary Care Provider: Arelis Mcgrath Attending Provider: Crystal Peña Admit Date/Time: 07/18/20 22:56 Quality VTE Deep Vein Thrombosis/Pulmonary Embolism Present on Admission: No
== END 2020-07-20 18:10 | disposition home or self-care (01) ==
LOC: ED 19:39 → AC 23:25
PROVIDERS: Specialist; Admitting Provider Surgery; Emergency Provider Emergency Medicine; PCP Nurse Practitioner; Referring Provider Emergency Medicine; Visit Provider Surgery
PROC: 0FT44ZZ Resection of Gallbladder, Percutaneous Endoscopic Approach (ICD-10-PCS; CPT 47562; principal; 2020-07-19 10:00)
DX: K80.00 Calculus of gallbladder with acute cholecystitis without obstruction (principal); R10.11 Right upper quadrant pain; B19.20 Unspecified viral hepatitis C without hepatic coma; I10 Essential (primary) hypertension; K21.9 Gastro-esophageal reflux disease without esophagitis; K82.1 Hydrops of gallbladder; Z11.59 Encounter for screening for other viral diseases
CPT/HCPCS: 47562; 36415; 74177; 80053; 83605; 83690; 85025; 87635; 93005; 96361; 96374; 96375; 96376; 99220; 99284; G0378; J0330; J0690; J1100; J1170; J1885; J2250; J2405; J2543; J2704; J3010; Q9967

== ENCOUNTER → 2021-01-26 16:44 | Outpatient (CLI) | payer OTHER, SELFPAY ==
[2020-07-18 23:09] VITALS: BMI 31.2
[2021-01-26 18:27] LABS: TSH w/ Reflex to FT4 0.75 uIU/mL (0.47-4.68)
== END ==
PROVIDERS: PCP Registered Nurse Diabetes Educator; Referring Provider Registered Nurse Diabetes Educator; Visit Provider Registered Nurse Diabetes Educator
DX: R79.89 Other specified abnormal findings of blood chemistry (principal)
CPT/HCPCS: 36415; 84443

== ENCOUNTER → 2021-02-04 14:24 | Outpatient (CLI) | payer OTHER, SELFPAY ==
[2020-07-18 23:09] VITALS: BMI 31.2
--- NOTE | 2021-02-04 14:26 | DI.RAD.S_ITS ---
PROCEDURE: XR DEXA AXIAL SKELETON INDICATIONS: recheck screening COMPARISON: [facility], CR, XR DEXA AXIAL SKELETON, 04/09/2018, 13:20. FINDINGS: This blank DEXA report has been sent in error by the PACS system. The correct and complete report will be forthcoming in 1-2 days. Thank you for your patience and understanding. Dictated by: Yael Berry MD, PhD on 02/04/2021 at 17:07 Approved by: Yael Berry MD, PhD on 02/04/2021 at 17:07
== END ==
PROVIDERS: PCP Registered Nurse Diabetes Educator; Referring Provider Registered Nurse Diabetes Educator; Visit Provider Registered Nurse Diabetes Educator
DX: M85.88 Other specified disorders of bone density and structure, other site (principal); Z78.0 Asymptomatic menopausal state
CPT/HCPCS: 77080

== ENCOUNTER → 2021-05-13 08:34 | Outpatient (CLI) | payer OTHER, SELFPAY ==
[2020-07-18 23:09] VITALS: BMI 31.2
[2021-05-13 09:56] LABS: Hematocrit 43.4 % (36-46); Hemoglobin 14.7 g/dL (12.0-16.0); Mean Corpuscular HGB Conc 33.9 % (30-36); Mean Corpuscular Hemoglobin 31.1 PG (26-34); Mean Corpuscular Volume 91.7 fL (80-100); Platelet Count 256 X10^3/uL (150-400); Red Blood Cell Count 4.74 X10^6/uL (4.0-5.2); Red Cell Distribution Width 13.2 % (11.6-14.8); White Blood Cell Count 5.6 X10^3/uL (4.5-11.0)
[2021-05-13 10:27] LABS: Alanine Aminotransferase 21 IU/L (<35); Albumin Globulin Ratio 1.1 (1.0-2.8); Alkaline Phosphatase 70 U/L (38-126); Aspartate Aminotransferase 35 IU/L (14-36); BUN Creatinine Ratio 35.7 (6-22); Bilirubin Total 0.7 mg/dL (0.2-1.3); Blood Urea Nitrogen 20 mg/dL (7-17); Calcium 9.7 mg/dL (8.4-10.2); Carbon Dioxide 28 mmol/L (22-32); Chloride 106 mmol/L (98-107); Cholesterol 155 mg/dL (140-199); Estimated Glomerular Filt Rate > 60.0 mL/min (>60); Globulin 3.7 g/dL (1.7-4.1); Glucose 88 mg/dL (80-110); HDL Cholesterol 60 mg/dL (40-60); HEMOLYSIS < 15 (0-50); LDL Cholesterol Calculated 82 mg/dL (<100); Potassium 4.2 mmol/L (3.4-5.1); Sodium 140 mmol/L (137-145); Total Protein 7.7 g/dL (6.3-8.2); Triglycerides 63 mg/dL (35-150)
== END ==
PROVIDERS: PCP Registered Nurse Diabetes Educator; Referring Provider Registered Nurse Diabetes Educator; Visit Provider Registered Nurse Diabetes Educator
DX: R79.89 Other specified abnormal findings of blood chemistry (principal); Z86.19 Personal history of other infectious and parasitic diseases
CPT/HCPCS: 36415; 80053; 80061; 84443; 85027

== ENCOUNTER → 2021-06-02 10:30 | Outpatient (CLI) | payer OTHER, SELFPAY ==
[2020-07-18 23:09] VITALS: BMI 31.2
--- NOTE | 2021-06-02 10:31 | DI.RAD.S_ITS ---
PROCEDURE: XR HIP W PEL IF DONE RT 2V INDICATIONS: Pls eval R inguinal pain TECHNIQUE: AP pelvis with lateral view(s) of the right hip(s). COMPARISON: None. FINDINGS: Bones: No acute fracture. Moderate right hip joint degeneration with subchondral and marginal lucencies, potentially cysts versus erosions. Mild to moderate left hip joint degeneration. Lumbar spondylosis and facet arthropathy. Soft tissues: The visualized bowel gas pattern is normal. No suspicious soft tissue calcifications. IMPRESSION: Moderate right hip joint degeneration with prominent subchondral marginal lucencies. If there is concern for erosions, cross-sectional imaging with contrast enhanced MRI recommended. Dictated by: Bib Quintero M.D. on 06/02/2021 at 11:24 Approved by: Bib Quintero M.D. on 06/02/2021 at 11:27
--- NOTE | 2021-06-02 10:31 | DI.US.S_ITS ---
PROCEDURE: US ABDOMEN LIMITED INDICATIONS: RIGHT GROIN PAIN TECHNIQUE: Real-time focused scanning was performed of the inguinal region, with image documentation. COMPARISON: None. FINDINGS: Ultrasound examination of right lower quadrant and right inguinal region shows no abdominal wall defect or hernia. No soft tissue mass or fluid collection. IMPRESSION: No hernia is seen in right inguinal region. No soft tissue mass or fluid collection. Dictated by: Noam Camejo M.D. on 06/02/2021 at 13:13 Approved by: Noam Camejo M.D. on 06/02/2021 at 13:14
== END ==
PROVIDERS: PCP Registered Nurse Diabetes Educator; Referring Provider Registered Nurse Diabetes Educator; Visit Provider Registered Nurse Diabetes Educator
DX: R10.31 Right lower quadrant pain (principal); M16.11 Unilateral primary osteoarthritis, right hip
CPT/HCPCS: 73502; 76705

== ENCOUNTER → 2021-07-16 15:52 | Outpatient (CLI) | payer OTHER, SELFPAY ==
[2020-07-18 23:09] VITALS: BMI 31.2
--- NOTE | 2021-07-16 15:53 | DI.MRI.S_ITS ---
PROCEDURE: MR HIP RT WO CON INDICATIONS: hip degeneration TECHNIQUE: Noncontrast coronal T1 spin echo and STIR through the bony pelvis. Coronal and axial T2 fast spin echo with fat saturation, sagittal T1 spin echo, and oblique axial T2 fast spin echo with fat saturation through the hip. COMPARISON: [facility], CR, XR HIP W PEL IF DONE RT 2V, 06/02/2021, 10:36. FINDINGS: Image quality: Excellent. Bones and joints: Bone marrow of the pelvic ring and proximal femurs show normal signal throughout. No intraosseous lesions or fractures. No avascular necrosis of the femoral heads. Disc desiccation, degenerative endplate changes, and facet hypertrophy are seen in the included lower lumbar spine. Mild degenerative changes are seen at the pubic symphysis. Tendons and ligaments: There is partial tearing of the posterior gluteus minimus tendon and anterior gluteus medius tendon at their insertions onto the right greater trochanter with small trochanteric and subgluteal bursal effusions, superimposed on moderate tendinosis. Moderate fatty infiltration of the gluteus minimus muscle is seen that appears symmetrical compared to the other side. A moderate contralateral left trochanteric bursal effusion is present. The proximal iliotibial band appears intact. The iliopsoas tendon appears intact, without adjacent bursal fluid collections. The origins of the hamstring tendons demonstrate mild tendinosis bilaterally. The direct and indirect heads of the rectus femoris muscle origin appear intact. Labrum and cartilage: There is diffuse labral degeneration and degenerative tearing. Posterosuperior paralabral cysts are seen measuring up to 10 mm in maximum dimension. Full-thickness cartilage loss is seen in the posterior to superior hip with subchondral sclerosis, subchondral cystic changes, and marginal osteophyte formation. A small right hip joint effusion is present. Findings are symmetric when compared to the contralateral side. Soft tissues: Quadratus femoris muscle demonstrates no internal edema to suggest ischiofemoral impingement. The proximal sciatic neurovascular bundle appears intact. Uterine fibroids are noted. IMPRESSION: 1. Severe right hip osteoarthrosis with full-thickness cartilage loss, subchondral cystic changes, and marginal osteophyte formation. A small right hip joint effusion is present. 2. Diffuse degeneration and degenerative tearing of the right acetabular labrum with small posterosuperior paralabral cysts. 3. Partial tearing of the distal right gluteus minimus and medius tendons at their insertions onto the greater trochanter, superimposed on tendinosis. Small trochanteric and subgluteal effusions are present. 4. Left gluteus medius and minimus tendinosis with a moderate to large left trochanteric bursal effusion or bursitis. Underlying left gluteal tendon tearing is also suspected. 5. Mild bilateral proximal hamstring tendinosis. 6. Degenerative changes also noted in the included lumbar spine and the pubic symphysis. Dictated by: Sang Quijano M.D. on 07/19/2021 at 8:38 Approved by: Sang Quijano M.D. on 07/19/2021 at 8:53
--- NOTE | 2021-07-16 15:53 | DI.MRI.S_ITS ---
PROCEDURE: MR PELVIS WO CON INDICATIONS: DJD rt hip TECHNIQUE: Noncontrast coronal and sagittal T1 spin echo and STIR, axial T1 and T2 with fat saturation through the bony pelvis. COMPARISON: [facility], , MR HIP RT WO CON, 07/16/2021, 17:07. FINDINGS: Image quality: There is mild inhomogeneous fat saturation. Bones: Bone marrow of the pelvic ring, sacrum, and proximal femurs demonstrate normal overall signal. No suspicious intraosseous lesions or fractures identified. There is moderate axial cartilage thinning in the right hip with associated subchondral edema as well as prominent subchondral cystic changes within the femoral head. Mild collar osteophytosis is also present. There is mild axial cartilage thinning in the left hip. The visualized lower lumbar spine demonstrates mild degenerative disk disease at L5-S1. Tendons: The gluteus medius and minimus tendons demonstrate partial tearing distally at the greater trochanters, mild on the right and moderate on the left. There is associated peritendinous edema and fluid, left greater than right. The adjacent proximal iliotibial band also appears intact. The iliopsoas tendon appears intact, without adjacent bursal fluid collections or evidence for impingement syndrome. The origin of the hamstring tendon is intact at the ischial tuberosity, as well as the associated sacrotuberous ligament. The straight and reflected heads of the rectus femoris muscle origin appear intact, as well as the conjoint tendon. Soft tissues: Visualized muscles demonstrate normal bulk and internal signal. No joint effusions. No free pelvic fluid. Bladder wall thickness is normal. Genitourinary structures and bowel loops appear normal where visualized. IMPRESSION: 1. Moderate osteoarthritic changes of the right hip as reported on the concurrent dedicated hip study. 2. Bilateral partial tearing of the distal gluteal tendons at the greater trochanters with associated peritendinous fluid and edema, left greater than right. Dictated by: Duane Frias M.D. on 07/19/2021 at 8:47 Approved by: Duane Frias M.D. on 07/19/2021 at 9:10
== END ==
PROVIDERS: PCP Registered Nurse Diabetes Educator; Referring Provider Registered Nurse Diabetes Educator; Visit Provider Registered Nurse Diabetes Educator
DX: M16.11 Unilateral primary osteoarthritis, right hip (principal); M25.451 Effusion, right hip; S73.191A Other sprain of right hip, initial encounter; M24.851 Other specific joint derangements of right hip, not elsewhere classified; S76.012A Strain of muscle, fascia and tendon of left hip, initial encounter; S76.011A Strain of muscle, fascia and tendon of right hip, initial encounter; M47.816 Spondylosis without myelopathy or radiculopathy, lumbar region
CPT/HCPCS: 72195; 73721

== ENCOUNTER → 2021-09-14 14:13 | Outpatient (CLI) | payer OTHER, SELFPAY ==
[2020-07-18 23:09] VITALS: BMI 31.2
[2021-09-14 14:37] LABS: COVID19 -Nasal RAPID Negative (Negative)
== END ==
PROVIDERS: PCP Registered Nurse Diabetes Educator; Referring Provider Registered Nurse Diabetes Educator; Visit Provider Physician Assistant
DX: Z20.822 Contact with and (suspected) exposure to COVID-19 (principal); Z86.19 Personal history of other infectious and parasitic diseases; R79.89 Other specified abnormal findings of blood chemistry
CPT/HCPCS: 36415; 80053; 84443; 85027; 87635

== ENCOUNTER 2021-09-16 06:17 | Day surgery (SDC) | payer OTHER, SELFPAY ==
[2020-07-18 23:09] VITALS: BMI 31.2
[2021-09-14 14:56] VITALS: BMI 34.2
[2021-09-16] VITALS (7 sets, daily range): BP systolic 117–135; BP diastolic 61–85; PULSE 58–73; RESP 12–16; TEMP 36.3–36.7; O2SAT 98–100; BMI 34.2
[2021-09-16] MEDS: LACTATED RINGERS 1,000 ML 100 ML IV ×2 (07:11→08:50)
[2021-09-16] MEDS: GABAPENTIN 300 MG CAPSULE PO (07:23)
[2021-09-16] MEDS: ACETAMINOPHEN 325 MG TABLET 975 MG PO (07:24)
[2021-09-16] MEDS: SCOPOLAMINE 1 PATCH TOP (07:37)
--- NOTE | 2021-09-16 07:37 | PM.PREOP ---
Pre-operative Note COVID-19 COVID-19 status: Negative Result date/Date tested (Pos, Neg/Pending): 09/14/21 Interval Note History & Physical reviewed/Exam performed by Physician: Yes Changes to H&P: No
--- NOTE | 2021-09-16 07:38 | PM.OP.1 ---
Operative Date/Time/Diagnoses Date of procedure: 09/16/21 Time of procedure: 07:38 Pre-op diagnosis: Left foot painful retained hardware Post-op diagnosis: same Procedure & Clinicians Procedure: Left first metatarsophalangeal joint hardware removal Same procedure as scheduled: Yes Indications: Painful retained hardware to the left great toe joint. Conservative measures failed to alleviate her pain and she wished to have the hardware removed at this time. We spoke of the risks, potential complications, expected outcomes. Consent was signed, no contraindications to the procedure at this time. Surgeon: Griselda Hernandez Click Yes if Unassisted: Yes Anesthesia Type: General Operative Notes Closure Type: primary Specimen(s): none sent Estimated Blood Loss (mL): 10 Blood products transfused: none Tourniquet time (min): 30 Procedure in detail: Patient was brought to the operating room and placed on the operating table in the supine position. Tourniquet placed about her left ankle. She was well padded and appropriately aligned. After induction of general anesthesia the foot and ankle were prepped and draped in the usual aseptic manner. After a check of anesthesia, the tourniquet was inflated to the ankle. Incision was made of the dorsal aspect of the 1st metatarsophalangeal joint of the left foot, following prior incisional scar. The incision was deepened through subcutaneous tissues being careful to identify and retract all vital neural and vascular structures. All bleeders were cauterized and ligated as necessary. There was of fair amount of scar tissue present. The plate and screws were noted to be intact, no loosening. After identifying all aspects of the plate and heads of screws, the 6 screws in the plate were removed and checked each 1 to be removed intact and then the plate was also removed, passed from the field. The lag screw on the distal medial aspect of 1st MTPJ was also identified and it was a little sunken with some bony overgrowth dorsally but after some careful remodeling of the local bone to the head of the screw the screw was able to be removed in total and passed from the field. The 1st metatarsal phalangeal joint arthrodesis site was verified to be sturdy and strong in good condition with no motion. The tourniquet was deflated, prompt hyperemic response was seen to the foot. Layered closure was performed using 4-0 Vicryl and then to the skin was 3-0 nylon. A lightly compressive dressing was placed on the foot in a sterile manner and she was placed in stockinette and transported to the postoperative holding area. Complications: none Post-operative Condition: stable Disposition: PACU Plan for aftercare: Following a period of postoperative monitoring, the patient will be discharged to home on written and oral postoperative instructions including keeping the dressing dry and intact, avoiding significant ambulation on the foot, icing and elevating the foot when seated home. DVT prevention techniques have been reviewed. For the 1st postoperative visit the dressing will be changed and close to the 2nd postoperative week we will likely remove the sutures. She did not bring her boot with her to the surgery today but is given instructions to put it on when she gets in the car on discharge or when she arrives home.
[2021-09-16] MEDS: CEFAZOLIN 2 GM/20 ML SYRINGE IV (07:54)
--- NOTE | 2021-09-16 08:11 | SUR.OPER ---
Supine on padded OR bed, head on pillow, arms secured on padded arm boards at <90 degrees abduction, legs uncrossed, safety belt at thigh, tape over blanket over lower right leg, left leg draped free.
[2021-09-16] MEDS: BUPIVACAINE 0.5% (PF) VIAL 30 ML INJ (08:17)
== END 2021-09-16 10:04 | disposition home or self-care (01) ==
PROVIDERS: PCP Registered Nurse Diabetes Educator; Referring Provider Podiatrist; Visit Provider Podiatrist
PROC: (CPT 20680; principal; 2021-09-16 07:45)
DX: T84.84XA Pain due to internal orthopedic prosthetic devices, implants and grafts, initial encounter (principal); M79.672 Pain in left foot
CPT/HCPCS: 20680; J0690; J1100; J1885; J2405; J2704; J3010

== ENCOUNTER → 2022-01-26 15:00 | Outpatient (CLI) | payer OTHER, SELFPAY ==
[2020-07-18 23:09] VITALS: BMI 31.2
[2022-01-26 16:54] LABS: Add Manual Diff / Slide Review NO; Basophils Absolute Auto 100 /uL (0-100); Basophils Percent Auto 1.4 % (0-2); Eosinophils Absolute Auto 400 /uL (0-450); Eosinophils Percent Auto 8.1 % (2-4); Hematocrit 42.8 % (36-46); Hemoglobin 14.9 g/dL (12.0-16.0); Lymphocytes Absolute Auto 1600 /uL (1100-4500); Lymphocytes Percent Auto 31.4 % (25-40); Mean Corpuscular HGB Conc 34.8 % (30-36); Mean Corpuscular Hemoglobin 31.6 PG (26-34); Mean Corpuscular Volume 90.7 fL (80-100); Monocytes Absolute Auto 400 /uL (0-900); Monocytes Percent Auto 8.4 % (3-14); Neutrophils Absolute Auto 2600 /uL (1500-7000); Neutrophils Percent Auto 50.7 % (50-75); Platelet Count 281 X10^3/uL (150-400); Red Blood Cell Count 4.71 X10^6/uL (4.0-5.2); White Blood Cell Count 5.2 X10^3/uL (4.5-11.0)
[2022-01-26 17:07] LABS: BUN Creatinine Ratio 35.5 (6-22); Blood Urea Nitrogen 22 mg/dL (7-17); Calcium 9.3 mg/dL (8.4-10.2); Carbon Dioxide 29 mmol/L (22-32); Chloride 102 mmol/L (98-107); Estimated Glomerular Filt Rate > 60 mL/min (>60); Glucose 91 mg/dL (80-110); HEMOLYSIS < 15 (0-50); Potassium 4.1 mmol/L (3.4-5.1); Sodium 139 mmol/L (137-145)
[2022-01-26 17:28] LABS: PTT Partial Thromboplastin Tim 30 SECONDS (26.4-36.2)
[2022-01-26 17:45] LABS: Appearance Urine UA CLEAR; Bilirubin Urine UA NEGATIVE (NEGATIVE); Color Urine UA YELLOW; Glucose Urine UA NEGATIVE (Negative); Ketones Urine UA NEGATIVE (NEGATIVE); Leukocyte Esterase Urine UA TRACE (NEGATIVE); Nitrite Urine UA NEGATIVE (Negative); Occult Blood Urine UA 1+ (Negative); Protein Urine UA NEGATIVE (Negative); Specific Gravity Urine UA <=1.005 (1.000-1.035); Urobilinogen Urine UA 0.2 E.U./dL (0.2)
[2022-01-26 18:03] LABS: Bacteria Urine None Seen; Culture Indicated Urine Cult Not Indicated; RBC Urine 0-1/HPF (0-5/HPF); Squamous Epithelial Cell Urine None Seen (0-5/HPF); WBC Urine 0-1/HPF (0-5/HPF)
[2022-01-26 18:31] LABS: Hemoglobin A1C% w Est Avg Glu 5.3 % (4.0-6.0)
== END ==
LOC: RAD 15:04 → LAB 15:07
PROVIDERS: PCP Registered Nurse Diabetes Educator; Referring Provider Orthopaedic Surgery; Visit Provider Orthopaedic Surgery
DX: Z01.812 Encounter for preprocedural laboratory examination (principal); R73.9 Hyperglycemia, unspecified; N39.0 Urinary tract infection, site not specified; Z51.81 Encounter for therapeutic drug level monitoring
CPT/HCPCS: 36415; 80048; 81001; 83036; 85025; 85610; 85730; 93005

== ENCOUNTER → 2022-04-06 12:29 | Outpatient (CLI) | payer OTHER, MEDICARE, SELFPAY ==
[2020-07-18 23:09] VITALS: BMI 31.2
[2022-04-06 14:36] LABS: COVID19 -Nasal RAPID POSITIVE (Negative)
== END ==
PROVIDERS: PCP Registered Nurse Diabetes Educator; Referring Provider Physician Assistant; Visit Provider Physician Assistant
DX: U07.1 COVID-19 (principal)
CPT/HCPCS: 87635; C9803

== ENCOUNTER → 2022-05-07 10:51 | Outpatient (CLI) | payer OTHER, MEDICARE, SELFPAY ==
[2020-07-18 23:09] VITALS: BMI 31.2
[2022-05-07 11:28] LABS: COVID19 -Nasal RAPID Negative (Negative)
== END ==
PROVIDERS: PCP Registered Nurse Diabetes Educator; Referring Provider Orthopaedic Surgery; Visit Provider Orthopaedic Surgery
DX: Z20.822 Contact with and (suspected) exposure to COVID-19 (principal); Z11.59 Encounter for screening for other viral diseases
CPT/HCPCS: 87635; C9803

== ENCOUNTER 2022-05-10 11:44 | Day surgery (SDC) | payer OTHER, MEDICARE, SELFPAY ==
[2020-07-18 23:09] VITALS: BMI 31.2
[2022-03-30 08:20] VITALS: BMI 32.8
[2022-05-10] VITALS (14 sets, daily range): BP systolic 75–160; BP diastolic 42–87; PULSE 64–89; RESP 10–21; TEMP 35.7–36.9; O2SAT 93–100; BMI 34.0; BMI 38.0
[2022-05-10] MEDS: ACETAMINOPHEN 325 MG TABLET 975 MG PO (12:13)
[2022-05-10] MEDS: CELECOXIB 200 MG CAPSULE PO (12:13)
[2022-05-10] MEDS: LACTATED RINGERS 1,000 ML 42 ML IV ×3 (12:16→17:27)
[2022-05-10] MEDS: VANCOMYCIN 1,000 MG/200 ML PIGGYBACK 200 MG IV (13:06)
--- NOTE | 2022-05-10 13:22 | PM.HP.1 ---
History of Present Illness History of Present Illness Date Patient Seen: 05/10/22 Time Patient Seen: 13:22 Chief complaint: Severe right hip arthritis Narrative: She notes ongoing substantial right pain. She had a positive test but no symptoms. She notes she has been doing well and has had no interval problems. She notes constant right hip pain that markedly interferes with her lifestyle and activities. Patient History Medical History Abnormal Pap smear of cervix (1987) Asthma Colon polyps (2010) Elevated TSH Flexor tenosynovitis of finger GERD (gastroesophageal reflux disease) Hepatitis C (2013) Hiatal hernia (2007) History of hepatitis C Osteopenia after menopause Seasonal allergies Syphilis (~1969) Vitamin D deficiency Surgical History Anesthesia History of bunionectomy of left great toe History of orthopedic surgery (04/02/20) History of orthopedic surgery (~03/2020) History of tonsillectomy (~1962) History of total left knee replacement (TKR) (03/30/17) Hx of cholecystectomy (07/18/20) Hx of foot surgery (08/16/19) Hx of foot surgery (09/16/21) Status post breast reduction (1999) Status post colonoscopy (2008) Status post colonoscopy (2011) Status post dilation and curettage Status post knee surgery (03/2012) Status post knee surgery (2011) Status post LASIK surgery Status post trigger finger release Status post tubal ligation (1987) Family & Social History Family History Unknown No problems noted. Social History: household members spouse Prior Living Arrangements Mobile home Safety & Behavioral: Feels Safe in Current Yes Environment Been Physically Hurt or No Threatened By a Person Suicidal Ideation Description None Suicide Plan Description No Plan Tobacco & Substance use: Smoking Status Never smoker alcohol intake former Substance Use Type does not use Meds Home Medications and Allergies Home Medications Medication Instructions Recorded Confirmed Type calcium carbonate 500 mg calcium 1,000 mg PO DAILY 07/18/20 05/10/22 History (1,250 mg) tablet (Calcium 500) magnesium 30 mg tablet 30 mg PO DAILY 07/18/20 05/10/22 History omega 2-vxf-vjt-fish oil 1,000 mg 1 cap PO DAILY 07/18/20 05/10/22 History (120 mg-180 mg) capsule (Fish Oil) vitamin B complex (B 1 tab PO DAILY 07/18/20 05/10/22 History Complex-Vitamin B12 tablet) meloxicam 15 mg tablet 15 mg PO BID 03/30/22 05/10/22 History Allergies Allergy/AdvReac Type Severity Reaction Status Date / Time codeine AdvReac Severe Vomiting Verified 05/10/22 12:01 [From Tylenol-Codeine #3] oxycodone AdvReac Intermediate Vomiting Verified 05/10/22 12:01 Review of Systems Review of Systems Narrative: No recent fever cough cold or problems. Exam Vital Signs (past 8 hours): - 05/10/22 12:03 Temperature 96.3 F L Pulse Rate 67 Respiratory Rate 16 Blood Pressure 160/87 H Pulse Oximetry 99 Oxygen Delivery Method Room Air Oxygen Delivery Method Room Air Narrative Exam Narrative: HEENT is benign, lungs are clear cor regular rate rhythm abdomen her right hip there is severe pain with range of motion, her skin is intact, she has restricted range of motion in her right hip, she is neurologically intact distally. Assessment & Plan Assessment and plan (1) Osteoarthritis of right hip: Status: Acute (2) History of hepatitis C: Status: Acute Plan Recommended a right total hip arthroplasty the procedure alternatives risks benefits and complications were reviewed. There is no interval change in her H and P other than she did have a positive COVID test. She was asymptomatic and has recovered. The procedure alternatives risk and complications were discussed in detail. Were going to proceed with right total hip arthroplasty through a posterior approach. Time Spent With Patient Critical Care time: I spent a total of [] minutes of critical care time on this patient's care today; this time is exclusive of procedural time.
[2022-05-10] MEDS: CEFAZOLIN 2 GM IN 0.9 % NACL 100 ML IV ×2 (14:37→22:12)
[2022-05-10] MEDS: TRANEXAMIC ACID 1,000 MG VIAL 2000 MG INJ ×2 (14:40→16:45)
--- NOTE | 2022-05-10 14:47 | DI.RAD.S_ITS ---
PROCEDURE: XR HIP W PEL IF DONE RT 2V INDICATIONS: POST OP TOTAL RIGHT HIP TECHNIQUE: 2 view(s) of the hip acquired. COMPARISON: [facility], MARI, XR HIP W PEL IF DONE RT 2V, 05/10/2022, 15:54. FINDINGS: Bones: Patient is status post right hip arthroplasty, with hardware components in expected positions. The hip joint appears congruent. The visualized bony structures appear intact. Soft tissues: Overlying postoperative changes are noted. No suspicious soft tissue densities. IMPRESSION: Expected postsurgical change for right hip arthroplasty. Dictated by: Yael Berry MD, PhD on 05/10/2022 at 16:40 Approved by: Yael Berry MD, PhD on 05/10/2022 at 16:40
--- NOTE | 2022-05-10 14:47 | DI.RAD.S_ITS ---
PROCEDURE: XR HIP W PEL IF DONE RT 2V INDICATIONS: RIGHT TOTAL HIP TECHNIQUE: 2 view(s) of the hip acquired. COMPARISON: [facility], CR, XR HIP W PEL IF DONE RT 2V, 06/02/2021, 10:36. FINDINGS: Bones: Intraoperative images demonstrating right hip arthroplasty, with hardware components in expected positions. The hip joint appears congruent. The visualized bony structures appear intact. Soft tissues: Overlying postoperative changes are noted. No suspicious soft tissue densities. IMPRESSION: Expected postsurgical change for right hip arthroplasty. Dictated by: Yael Berry MD, PhD on 05/10/2022 at 16:39 Approved by: Yael Berry MD, PhD on 05/10/2022 at 16:39
--- NOTE | 2022-05-10 15:14 | SUR.OPER ---
Patient supine on padded [place] table, one arm on padded arm board at <90, other arm padded and secured with tape across patient's chest, both legs secured in padded traction boots and positioned per surgeon, padded post at patient's groin, pressure points checked and padded.
[2022-05-10] MEDS: BUPIVACAINE 0.5% (PF) 30 ML, EPINEPHrine 0.15 MG INJ (16:55)
[2022-05-10] MEDS: BUPIVACAINE LIPOSOME 266 MG/20 ML VIAL INJ (16:55)
[2022-05-10] MEDS: SODIUM CHLORIDE IRRIG SOLUTION 250 ML, POVIDONE-IODINE SPONGE STICKS 1 APPLIC IRR (16:55)
--- NOTE | 2022-05-10 17:27 | P.OP_ITS ---
Operative Date/Time/Diagnoses Date of procedure: 05/10/22 Time of procedure: 14:00 Pre-op diagnosis: Severe right hip osteoarthritis Post-op diagnosis: same Procedure & Clinicians Procedure: Right total hip arthroplasty anterior approach Same procedure as scheduled: Yes Indications: The patient has had progressively worsening right hip pain with radiographic changes consistent with arthritis. Non-operative management has failed and the patient has requested total hip replacement. The risks, benefits and alternatives to surgery were discussed with the patient prior to proceeding. Risks discussed included, but were not limited to, failure to relieve pain, leg length discrepancy, dislocation, stiffness, infection, nerve damage, deep venous thrombosis, pulmonary embolism, stroke, coma, heart attack, permanent paralysis and , as well as the potential need for eventual revision of the prosthetic. Surgeon: Eugenia Leavitt Dining Room Maid: Ori Edwards Anesthesia Type: General Operative Notes Findings: Severe right hip osteoarthritis, acceptable stability, adequate bone Closure Type: primary Specimen(s): none sent Prosthetic devices, grafts, tissues, transplants, or devices: Leavitt and Nephew 48 mm R3 cup, neutral poly liner, standard offset size 3 anthology, 32 x -3 Oxinium femoral head, one 6.5 mm screw Estimated Blood Loss (mL): 250 Blood products transfused: none Procedure in detail: The patient was brought to the operating room. Patient was carefully positioned in the supine position. Time-out was performed and antibiotics were given. Anesthesia was induced. She was positioned in the on the table in order to allow hyperextension of the hip. The right lower extremity was prepped and draped in a standard sterile fashion. An anterior right hip incision was made 1 fingerbreadth lateral to the anterior superior iliac spine and extended distally towards the greater trochanter. Dissection was carried out through skin and subcutaneous tissues. Superficial hemostasis was achieved. She was fairly heavy and we taped her tummy a crossed to hold it out of the way. The fascia over the tensor fascia keanu was defined and incised with a knife. Two Allis clamps were used to grasp the fascia. Tensor fascia keanu was retracted laterally. A gelpi retractor was placed. Aqua Mantis was used fairly extensively cauterize any actively bleeding tissues. Dissection was carried out down along the neck. The circumflex vessels were carefully identified and cauterized with the Aqua Mantis. There was good visualization of the femoral neck. A Cobra was placed superior to the neck and the gluteus fibers were carefully stripped from that superior aspect of the capsule. A 2nd retractor was placed along the inferior aspect of the neck. The rectus insertion along the capsule was partially released. A 3rd retractor that was then gently placed over the rim of the acetabulum under the rectus. Capsule was carefully incised and released from the intertrochanteric line circumferentially superior to the mid sagittal line and inferiorly to the mid sagittal line until the lesser trochanter was palpable. A tag stitch was placed both in the superior and inferior limb of the capsular insertion. Along the acetabulum capsule was also released up to the mid sagittal 12:00 position. A portion of the labrum was resected. A saw was used to perform an osteotomy at the level of the intertrochanteric line and the junction of the superior femoral neck leaving approximately 1 finger breath of residual inferior neck above the lesser trochanter. A 2nd cut was made along the femoral neck at the base of the head and a napkin ring of neck was removed. Corkscrew was placed in the femoral head and the head was removed without difficulty. Retractors were then repositioned around the acetabulum. The cautery was carefully used to cauterize as much as possible the posterior capsule. There was moderate active bleeding from the femoral canal. I used the Aquamantys to actually cauterize the bone has majority of the bleeding was from the femoral canal. Residual labrum was resected and additional osteophytes were removed. A reamer that was 4 mm below the templated size was placed by hand in the acetabulum and it was reamed to centralize the acetabulum. It was then reamed up to 2 under the templated size and fluoroscopy was brought in to confirm the position of the reaming and depth of reaming. I reamed 1 under the anticipated size. A trial cup was placed and noted that it was appropriately sized and fluoroscopy confirmed position and depth. The component was open and inserted without difficulty fluoroscopic imaging was used to confirm that the cup had been adequately seated and was well positioned. It was further stabilized with a single screw. Neutral poly liner was placed. The cup was tested and noted to be stable. Attention was then directed to the femur. The femur was gently hyperextended additional capsular release was performed as needed in order to allow adequate visualization of the proximal femur with elevation of the femur. Patient was placed in a hyperextended slightly adducted position with maximum external rotation. She was meticulously mobilized as much as possible especially as she was fairly heavy. There was some moderate bleeding from the femoral neck but no other active bleeding. Box osteotome was used to check for any residual neck as well as sclerotic bone along the trochanter. [place] pepper was placed in the femur. Additional broaching was performed. Canal finder was used to determine the alignment of the canal and position. Size 1 broach was placed. The canal was then appropriately broached up to the templated size as long as there was adequate stability of the broach and serial advancement of the broach without excessive impingement. Specific attention was directed at avoiding varus attempting to direct the distal aspect of the broach more anteriorly and avoiding excessive anteversion. Trial reduction showed acceptable range of motion, good stability, no posterior impingement, spiritism of leg length and appropriate lateral shuck. I also hyperflexed the hip and checked that there was no impingement anteriorly and there was good stability with flexion, adduction and internal rotation. Marcaine and Exparel were injected. The stem was placed without difficulty. Repeat trial reduction and x-ray showed acceptable overall position, length, and no evidence of the femoral fracture. Final head was placed. Wound was meticulously irrigated with normal saline. The hip was reduced and additional Exparel and Marcaine were injected. The capsule was closed with interrupted nonabsorbable sutures. The fascia of the tensor was closed with interrupted and running Vicryl. No drain was placed. Any tensor fascia keanu muscle that appeared to be contused or injured which was a minimal amount was carefully resected. Capsule around the tensor was injected with Exparel and Marcaine. The skin was closed with barbed stitches for the subcutaneous tissue and skin. We also used surgical glue. The wound was dressed sterilely. Brief Betadine soak was also used and was meticulously irrigated with normal saline. Patient was transferred to recovery room in satisfactory condition. Complications: none Post-operative Condition: stable Disposition: Acute Care Plan for aftercare: The patient will be maintained on a standard total hip replacement protocol with weight bearing as tolerated and anterior hip precautions. The patient will receive Aspirin and sequential compression devices for DVT prophylaxis. The patient will be discharged home when safe for the home environment.
[2022-05-10] MEDS: HYDROMORPHONE 0.5 MG INJ 0.2 MG IV ×4 (18:18→21:50)
[2022-05-10] MEDS: ACETAMINOPHEN 325 MG TABLET 650 MG PO (18:20)
[2022-05-10] MEDS: HYDROMORPHONE 2 MG TABLET PO ×2 (18:20→22:23)
[2022-05-10] MEDS: IBUPROFEN 400 MG TABLET PO (18:21)
[2022-05-10] MEDS: LACTATED RINGERS 1,000 ML 125 ML IV (18:50)
[2022-05-10] MEDS: hydrOXYzine pamoate 25 MG CAPSULE 50 MG PO (19:04)
[2022-05-10] MEDS: KETOROLAC 30 MG/ML VIAL 15 MG IV (19:05)
--- NOTE | 2022-05-10 19:53 | PC.NURSE ---
Pt arrived from PACU at 1800 moaning in pain. Per report patient pain escalating from 5/10 to 10/10 from transport. Pt with soft BP and had EBL ~500 cc with IVF bolus. Pt denies dizziness but moaning in pain after prn and schedule medications given. Surgeon notified and attempted to get patient comfortable IV toradol and visteril administered. LR at 125ml/hr. Unable to complete admission assessment as patient hollering in pain. Endorsed to oncoming shift. +CMS to RLE, ICE and repositioning.
[2022-05-10] MEDS: ASPIRIN EC 81 MG TABLET PO (21:32)
[2022-05-10] MEDS: DOCUSATE 100 MG CAPSULE PO (21:32)
[2022-05-10] MEDS: ONDANSETRON 4 MG/2 ML INJ IV (22:23)
--- NOTE | 2022-05-10 22:55 | PC.NURSE ---
Patient is alert and oriented. Breath sounds CTA with RA sat of 99%. HRR. Initially denied nausea but after being placed on bedpan became nauseated and was medicated with Zofran. BT hypoactive and has not yet passed flatus. Assisted onto bedpan and able to void 150cc; denied dysuria. Is being assisted to reposition upon request. Patient having uncontrolled pain at shift change and has been medicated with IV Dilaudid x3 and po Dilaudid x 1 and states pain more tolerable at this time at 6/10; ice packs applied. Aquacel dressing to right anterior hip is CDI. CMS intact but has difficulty moving right leg. Wearing bilateral calf SCD's. Fall risk score is high and bed alarm is activated.
[2022-05-11] MEDS: ACETAMINOPHEN 325 MG TABLET 650 MG PO ×3 (00:11→11:31)
[2022-05-11 00:48] VITALS: BP 87/40; PULSE 65; RESP 18; TEMP 36.4; O2SAT 100
[2022-05-11 01:54] VITALS: BP 93/38; PULSE 65; RESP 18; TEMP 37.2; O2SAT 95
[2022-05-11] MEDS: LACTATED RINGERS 1,000 ML 125 ML IV (02:26)
[2022-05-11 02:30] VITALS: BP 101/56; PULSE 63; RESP 18; TEMP 36.3; O2SAT 98
[2022-05-11 03:20] VITALS: BP 103/56; PULSE 68; RESP 18; TEMP 36.2; O2SAT 98
[2022-05-11] MEDS: HYDROMORPHONE 2 MG TABLET PO ×3 (05:13→15:40)
[2022-05-11 05:21] LABS: Hematocrit 29.3 % (36-46); Hemoglobin 9.9 g/dL (12.0-16.0)
[2022-05-11] MEDS: CEFAZOLIN 2 GM IN 0.9 % NACL 100 ML IV (06:01)
[2022-05-11 08:20] VITALS: BP 99/45; PULSE 62; RESP 16; TEMP 35.8; O2SAT 100
[2022-05-11] MEDS: ASPIRIN EC 81 MG TABLET PO (09:26)
[2022-05-11] MEDS: DOCUSATE 100 MG CAPSULE PO (09:26)
--- NOTE | 2022-05-11 11:08 | PT.IIE ---
Current Diagnoses Unilateral primary osteoarthritis, right hip (05/10/22) Personal history of other infectious and parasitic diseases (05/10/22) Surgery Performed Operation Date: 05/10/22 13:45 Actual Procedures p Total Hip Arthroplasty/Anterior Approach(Right) - Eugenia Leavitt MD Surgical History (Last Reviewed 05/10/22 @ 13:23 by Eugenia Leavitt MD) Anesthesia History of bunionectomy of left great toe History of orthopedic surgery (04/02/20) History of orthopedic surgery (~03/2020) History of tonsillectomy (~1962) History of total left knee replacement (TKR) (03/30/17) Hx of cholecystectomy (07/18/20) Hx of foot surgery (08/16/19) Hx of foot surgery (09/16/21) Status post breast reduction (1999) Status post colonoscopy (2008) Status post colonoscopy (2011) Status post dilation and curettage Status post knee surgery (03/2012) Status post knee surgery (2011) Status post LASIK surgery Status post trigger finger release Status post tubal ligation (1987) Medical History (Last Reviewed 05/10/22 @ 13:23 by Eugenia Leavitt MD) Abnormal Pap smear of cervix (1987) Asthma Colon polyps (2010) Elevated TSH Flexor tenosynovitis of finger GERD (gastroesophageal reflux disease) Hepatitis C (2013) Hiatal hernia (2007) History of hepatitis C Osteopenia after menopause Seasonal allergies Syphilis (~1969) Vitamin D deficiency Physical Therapy Inpatient Evaluation/Re-Eval M1 PT/OT-IP Prior Functional Status Start: 05/11/22 13:10 Freq: NEEDED Status: Active Protocol: Document 05/11/22 11:08 AB (Rec: 05/11/22 13:29 [id number]) Medical Review Prior Functional Status Medical History Reviewed Yes Communication able to make needs known Mobility and Gait pt stated that she is modified independent without AD with all mobilities and ambulation Social History Household Members spouse Living Arrangements Mobile home Number of Floors (Floors) One Floor Number of Stairs To Enter/Railing? 7 steps with B rails to enter Home Environment High Toilet,Walk in Shower Home Equipment Lift Recliner M2 PT-IP Current Condition Start: 05/11/22 13:10 Freq: NEEDED Status: Active Protocol: Document 05/11/22 11:08 AB (Rec: 05/11/22 13:29 AB [email or web address]) Physical Therapy Current Condition Current Condition Evaluation Date 05/11/22 Treatment Diagnosis s/p R JEYSON anterior approach; difficulty in walking Onset Date 05/10/22 M3 PT-IP Subjective Start: 05/11/22 13:10 Freq: NEEDED Status: Active Protocol: Document 05/11/22 11:08 AB (Rec: 05/11/22 13:29 AB [email or web address]) Subjective Physical Therapy Visit Type Type Initial Evaluation Visit Start Time 11:08 Visit Stop Time 12:08 Total Visit Minutes 60 Number of STAIN SPRAYER Visits 0 Physical Therapy Visit Comments Patient Comments agreeable to do PT M4 PT-IP Mobility and Gait Start: 05/11/22 13:10 Freq: NEEDED Status: Active Protocol: Document 05/11/22 11:08 AB (Rec: 05/11/22 13:29 AB [id number]) PT-Bed Mobility Assessment Supine to Sit Supine to Sit Moderate Assistance,Maximum Assistance,1 Person Assistance PT-Transfer Assessment Sit to and From Stand Sit to and from Stand Moderate Assistance,1 Person Assistance,Use of Upper Extremities Equipment Transfer Assistive Device Gait Belt,Front Wheeled Walker Orthotic/Prosthetic Devices or Brace: No Transfers Transfer Destination Toilet Transfer Technique ambulated Transfer Ability Level of Assist Minimal Assistance,Moderate Assistance,1 Person Assistance ,Use of Upper Extremities Comments Mobility Comments educated on pt anterior hip precautions. BP in supine: 118/94. completed supine to sit x 2 attempts requiring mod to max a and max cues for techniques. able to sit on EOB SBA. no c/o dizziness. BP: 136/58. pt requested to use the toilet. completed sit to stand mod A and max cues. ambulated to the toilet using FWW mod A and cues. able to complete toileting SBA. ambulated from the toilet to the sink using FWW min A and was able to maintain standing using fWW for support while completing handwashing. ambulated to the chair using FWW min A. positioned pt on the chair. call light and table placed within reach. BP at end of PT session: 118/67 caregiver training set up today with spouse at 230 pm Gait Assessment Gait Gait Assistance Required: Minimum Assistance,Moderate Assistance Distance (Feet) 20 Able to Maintain Weight Bearing Status Yes During Gait Assistive Devices Assistive Device Gait Belt,Front Wheeled Walker Orthotic/Prosthetic Devices or Brace: No Gait Deviations General Gait Pattern Decreased Stride Length, Decreased Feet Clearance Factors Limiting Gait Function Factors Limiting Gait Function Decreased Activity Tolerance, Decreased Strength,Limited Range of Motion,Pain,Poor Balance,Poor Safety Awareness PT-Balance Assessment Sitting Balance and Reactions Static Sitting Balance Ability Good Dynamic Sitting Balance Ability Good Standing Balance and Reactions Static Standing Balance Ability Fair Dynamic Standing Balance Ability Poor Device Used FWW M5 PT-IP Objective Assessments Start: 05/11/22 13:10 Freq: NEEDED Status: Active Protocol: Document 05/11/22 11:08 AB (Rec: 05/11/22 13:29 AB [email or web address]) Orientation Orientation/Cognition Level of Alertness Alert Orientation Name,Situation Language Function Ability No Deficits Noted Safety Awareness Decreased Safety Awareness Memory Description Short Term Impaired Gross Range of Motion Lower Extremity ROM Assessment Within Functional Limits Strength Lower Extremity Strength Assessment Right Impaired Comments Strength Comments c/o increase R hip pain with movement affecting strength testing Sensation Assessment Sensation Gross Sensation WNL Muscle Tone Muscle Tone WNL Yes M6 PT-IP Treatment Start: 05/11/22 13:10 Freq: NEEDED Status: Active Protocol: Document 05/11/22 11:08 AB (Rec: 05/11/22 13:29 AB [email or web address]) Physical Therapy Treatment Education Education Provided Precautions,Weight Bearing Status,Post-Op Packet,Safety M7 PT-IP Assessment and Plan Start: 05/11/22 13:10 Freq: NEEDED Status: Active Protocol: Document 05/11/22 11:08 AB (Rec: 05/11/22 13:29 [email or web address]) PT Summary Assessment and Plan Potential Rehabilitation Potential Good Status of Condition at Evaluation Evolving Summary Impairments Pain,ROM,Strength,Balance, Coordination,Sensation,Tone, Cognition,Bed Mobility, Transfers,Gait,Activity Tolerance Assessment Summary pt requiring min to mod A with mobility using FWW and with c /o increase R anterior hip pain -05/11. Caregiver training set up at 230pm this afternoon and will continue to assess progress for safe d/c plan. Goals Bed Mobility Goal Standby Assistance Transfer Goal Standby Assistance,Front Wheeled Walker Gait Goal Standby Assistance,Front Wheel Walker Gait Distance 150 Other Goals up/down 7 steps B rails SBA Days to Meet Goals 5 Frequency of Treatment Frequency Of Treatment Twice a Day Treatment Plan Physical Therapy Treatment Plan Bed Mobility Training,Transfer Training,Gait Training, Therapeutic Exercise,Balance Retraining,Post Op Education, Discharge Planning,Hot or Cold Pack,Neuromuscular Re-ed, Coordination Retraining,Manual Therapy Other Recommendations and Next Treatment caregiver trainin/10 @ 230 Focus pm Precautions Anterior Hip Precautions No Hip Extension,No Hip External Rotation Weight Bearing Status Weight Bearing Status Weight Bear as Tolerated Allowed Weight Bearing Amount (enter % RLE WBAT or #) (%) Recommendations To Nursing Amount of Assist Needed 1 Person Assist Discharge Recommendations PT Discharge Recommendations Home with 24/04 Assist Available,Home Health, Outpatient PT Transportation Needs at Discharge Private Vehicle
[2022-05-11] MEDS: IBUPROFEN 400 MG TABLET PO (11:31)
--- NOTE | 2022-05-11 12:05 | CM.DANOTE ---
DCP: Case received, EMR reviewed and met with patient. Introduced self and role. Was able to obtain information regarding patient's baseline activity status at home prior to her surgery. DCP assessment completed with information currently available. Patient is a 67 year old female who admitted yesterday morning to the care of the orthopedic team. PCP: SARAH Briggs. Payer: confirmed: [facility]. Patient came to the hospital via private vehicle for a surgical procedure. Patient had a right total hip arthroplasty anterior approach. Patient has history of worsening right hip pain consistent with arthritis. Met with patient in her room. She had just been to the commode. She was laying in bed, alert and oriented. Confirmed with patient that she resides in [place] with her spouse, Fernando. She is independent at her baseline, and is employed with the [place] [id number]. Patient had indicated that she had been having some low blood pressure issues after surgery. Was informed that it took two people to assist her to the bathroom. Patient indicated, her spouse is expecting to assist her when she goes home. Patient also indicated that she has 7 stairs to enter into her home. She has not yet worked with P.T. P: DCP to continue to follow. Plan is home when stable, but will see if she may be benefit with home health. Janina Serrano RN/Atomic Process Engineer Discharge Planning/Care Management CM Discharge Assessment Start: 05/11/22 12:02 Freq: Status: Active Protocol: Document 05/11/22 12:04 (Rec: 05/11/22 12:05 [id number]) Discharge Planning Assessment Assigned Nutritionalist Janina Serrano RN/Atomic Process Engineer Advance Directives? Yes Advance Directives on File Yes: Dated 06/16/2000 History Provided By Patient,Medical Record Prior Living Arrangements Mobile home Household Members spouse Type of transporation used prior to Drives own vehicle admit Independent with ADL's Yes Is patient alert and oriented? Yes Caregiver for Another No Barriers to Discharge No Comment Will see how patient does with P.T. Discharge Plan Home Transportation Arrangement Family Referrals Initiated None needed,Other Additional Comment Will see how patient does with P.T. Whiteboard Updated in Patient Room with Yes name and ext. # of Nutritionalist Review Status In Process Next Review Type Continued Stay Review Pre-Anesthesia Assessment Start: 03/30/22 08:20 Freq: Status: Complete Protocol: Document 03/30/22 08:20 CAB (Rec: 03/30/22 09:22 CAB [email or web address]) Pre-Anesthesia Assessment Preferred Name Marlyn Patient Information Reviewed Via Phone Assessment Assessment Completed With Patient Diagnostic Results BMP/CMP,CBC,EKG,Urinalysis Comment Labs/ECG @ [facility] 01/26/22, COVID screen @ 04/06/22 Primary Care Provider Stefano Blanchard Seen Specialist in Last 12 Months Yes Specialist Seen Orthopedist Primary Language Pashto Preferred Language Pashto Height 5 ft 1 in Weight 174 lb Body Mass Index (BMI) 32.8 Hearing Ability Normal Visual Impairment No Limitations Visual Assist None Dentition Type Teeth, Natural Present Barriers to Learning None Hx Anesthesia Reactions No Hx Family Anesthesia Reaction No: Adopted Hx Malignant Hyperthermia No Hx Blood Transfusions Yes: Bleeding s/p D&C in early Hx Blood Transfusion Reaction No Anesthesia Review Requested No Roof Painter No alcohol intake former Smoking Status Never smoker Substance Use Type does not use Pain Present Pain Reported Musculoskeletal Symptoms Joint Pain,Neck Pain History of Falling (Recent or History of No ) Patient is completely paralyzed or No completely immobile Mental Status Oriented to own ability Is patient on oxygen? No Does patient have EPPERSON/SOB No Hx Sleep Apnea No CPAP/BIPAP use not prescribed Currently Taking a Beta Nora No Can You Climb a Flight of Stairs Without No SOB Hx Chest Pain No Hx SOB No Hx Syncope or Dizziness No Anti-Coagulant Therapy No Has a Microsoft Dynamics Consultant No Cardiac Testing No Hx Pacemaker/ICD No Pacemaker Rep Required? No Cardiac Clearance Received Not Applicable Diet Type At Home Regular dysphagia No Urinary Catheter Present No Hx Urinary Self Catheterization No Diabetes No HgbA1C 5.3 Date 01/26/22 Patient No Lactating No Hx Drug Resistant Organism No Presence of External or Internal Medical Yes: Lt knee prosthesis Devices Have you had any close contact with No someone diagnosed with COVID-19? Received a COVID vaccine? Yes: J&J, no boosters Marital Status Lives With spouse Prior Living Arrangements Mobile home Support System Spouse Does the Patient Have Assistance After Yes Surgery Patient Discharge Plan Description Return Home Comment Pt not advised on length of stay per surgeon Feels Safe in Current Environment Yes Been Physically Hurt or Threatened By a No Person in Current Environment Do you have thoughts of harming yourself None or others? Are you currently considering suicide? No Do you have a plan to hurt yourself or No Plan others? Do You Have Any Spiritual Beliefs That No May Affect Your HC Choices? Do You Have Any Cultural Practices That No May Affect Your HC Choices? Comment LDS Who Can We Speak to About Patient's Care Family, friends Identifying Code for Release of Patient Declines to issue Information Health Care Proxy/Next of Kin Fernando () Health Care Proxy Emergency Contact Name Fernando () Emergency Contact Advance Directives? Yes Advance Directives on File Yes: Dated 06/16/2000 Power of Farmworker General Yes Power of Farmworker General Name Fernando Bolivar Power of Farmworker General PAC Instructions Do not shave/clip surgical site,Durable medical equipment ,Medications to take/avoid, Nasal antibiotic,No ETOH/ petroleum product on skin DOS, NPO,Post-op transportation,Pre -surgical wash,Sturdy shoes/ comfortable clothes,Do not bring valuables and remove jewelry
--- NOTE | 2022-05-11 13:34 | PM.DS.1 ---
History of Present Illness History of Present Illness Date Patient Seen: 05/11/22 Time Patient Seen: 07:45 Chief complaint: Severe right hip arthritis Narrative: Patient is complaining of moderate to severe right hip pain. She has been up to use the commode and was not symptomatic, no lightheadedness or dizziness. She is using Dilaudid and Tylenol for pain management which is helping significantly. She is having some postoperative nausea and vomiting which is well controlled with Zofran. Discharge Providers Provider Discharge Date: 05/11/22 Primary care physician: SARAH Briggs Consults: 04/07/22 06:00 Consult to Anesthesiology Routine Comment: Consulting Provider: Anesthesiologist Reason for consultation: Regional block for post operative pain control 05/10/22 11:46 Consult to Anesthesiology Routine Comment: Consulting Provider: Anesthesiologist Reason for consultation: Regional block for post operative pain control 05/10/22 18:07 Consult to Discharge Planning Routine Comment: Consult to Physical Therapy Evaluate & Treat Comment: Physician Instructions: post op JEYSON protocol Consult to Respiratory Therapy Evaluate & Treat Comment: Physician Instructions: Evaluate and treat Discharge provider: Maira Fulton PA-C Summary Hospital Course Discharge Diagnosis: -stable status post right total hip arthroplasty, anterior approach -history of hep C -postop nausea and vomiting Hospital Course: Operative Date/Time/Diagnoses Date of procedure: 05/10/22 Time of procedure: 14:00 Procedure & Clinicians Procedure: Right total hip arthroplasty anterior approach Same procedure as scheduled: Yes Indications: The patient has had progressively worsening right hip pain with radiographic changes consistent with arthritis. Non-operative management has failed and the patient has requested total hip replacement. The risks, benefits and alternatives to surgery were discussed with the patient prior to proceeding. Risks discussed included, but were not limited to, failure to relieve pain, leg length discrepancy, dislocation, stiffness, infection, nerve damage, deep venous thrombosis, pulmonary embolism, stroke, coma, heart attack, permanent paralysis and , as well as the potential need for eventual revision of the prosthetic. Surgeon: Eugenia Leavitt Manager Privacy: Ori Edwards Anesthesia Type: General Operative Notes Findings: Severe right hip osteoarthritis, acceptable stability, adequate bone Closure Type: primary Specimen(s): none sent Prosthetic devices, grafts, tissues, transplants, or devices: Leavitt and Nephew 48 mm R3 cup, neutral poly liner, standard offset size 3 anthology, 32 x -3 Oxinium femoral head, one 6.5 mm screw Estimated Blood Loss (mL): 250 Blood products transfused: none Status at Discharge Cognitive/behavioral status at discharge: at baseline, oriented Functional status at discharge: uses cane/walker Overall status at discharge: patient is progressing back to baseline Exam Vital Signs (past 8 hours): - 05/11/22 08:20 Temperature 96.5 F L Pulse Rate 62 Respiratory Rate 16 Blood Pressure 99/45 L Pulse Oximetry 100 Oxygen Flow Rate 0 Oxygen Delivery Method Room Air Oxygen Flow Rate 0 Narrative Exam Narrative: Pleasant 67-year-old female, resting comfortably in bed, no acute distress. Dressing is clean, dry, intact. Bilateral lower extremity: Motor functions are grossly intact, sensation is grossly intact to light touch, calves are soft and nontender palpation. Objective Labs Result Diagrams: 05/11/22 04:56 Labs: Laboratory Results - last 24 hr 05/11/22 04:56 Hgb 9.9 L Hct 29.3 L PFSH Medical History Abnormal Pap smear of cervix (1987) Asthma Colon polyps (2010) Elevated TSH Flexor tenosynovitis of finger GERD (gastroesophageal reflux disease) Hepatitis C (2013) Hiatal hernia (2007) History of hepatitis C Osteopenia after menopause Seasonal allergies Syphilis (~1969) Vitamin D deficiency Surgical History Anesthesia History of bunionectomy of left great toe History of orthopedic surgery (04/02/20) History of orthopedic surgery (~03/2020) History of tonsillectomy (~1962) History of total left knee replacement (TKR) (03/30/17) Hx of cholecystectomy (07/18/20) Hx of foot surgery (08/16/19) Hx of foot surgery (09/16/21) Status post breast reduction (1999) Status post colonoscopy (2008) Status post colonoscopy (2011) Status post dilation and curettage Status post knee surgery (03/2012) Status post knee surgery (2011) Status post LASIK surgery Status post trigger finger release Status post tubal ligation (1987) Family History Unknown No problems noted. Social History household members: spouse Smoking Status: Never smoker second hand exposure: No alcohol intake: former substance use type: does not use Discharge Assessment & Plan Assessment and Plan Assessment: -stable status post right total hip arthroplasty, anterior approach -postop nausea -hypertension, asymptomatic currently Plan of Treatment: -mobilize with PT. Maintain anterior hip precautions x6 weeks. Weightbearing as tolerated with front wheel walker -continue with multimodal pain management -aspirin 81 mg twice daily x6 weeks for DVT prophylaxis -if she becomes symptomatic with her hypotension, okay for 500 mL bolus of normal saline -continue with Zofran as needed for postop nausea -DC home today if cleared by PT Discharge Plan Discharge Plan Patient Disposition: Home Discharge orders & Medications Discharge Orders: Discharge (Order); Ordered 05/11/22 Ordered By: Maira Fulton Prescriptions: New acetaminophen 500 mg capsule 500 mg PO Q4H MDD max 3,000mg per day PRN (Reason: fever or pain) Qty: 90 0RF aspirin 81 mg Tablet,Delayed Release (Dr/Ec) 81 mg PO BID 42 Days Qty: 84 0RF Rx Instructions: Prevent blood clots docusate sodium 100 mg Capsule 100 mg PO BID PRN (Reason: Constipation from narcotic pain meds) Qty: 20 0RF hydromorphone 2 mg Tablet 2 mg PO Q3H PRN (Reason: Pain, Severe (7-10)) Qty: 42 0RF ondansetron 4 mg Tablet,Disintegrating 4 mg PO Q4HR PRN (Reason: Nausea) Qty: 14 0RF Continued calcium carbonate [Calcium 500] 500 mg calcium (1,250 mg) Tablet 1,000 mg PO DAILY vitamin B complex [B Complex-Vitamin B12] Tablet 1 tab PO DAILY magnesium 30 mg Tablet 30 mg PO DAILY omega 9-kyn-usy-fish oil [Fish Oil] 1,000 mg (120 mg-180 mg) Capsule 1 cap PO DAILY meloxicam 15 mg Tablet 15 mg PO BID Follow up/Referrals: Stefano Blanchard ARNP [Primary Care Provider] - Eugenia Leavitt MD [Physician] - (10-14 days for postoperative visit) Diet/Activity/Treatments Diet: Diet as Tolerated Other treatments: Medications: -Aspirin 81mg twice daily x6 weeks to prevent blood clots. -OTC Tylenol 500 mg 1 tablet every 4 hours as needed for pain/fever. Max 6 tablets per day. -Continue with Meloxicam for inflammation/pain -Dilaudid 2 mg take 1 tablet every 3 hours as needed for moderate-severe pain (narcotic pain medication). -As needed medications: -Ducolax and /or MiraLax as needed for constipation from narcotic pain medications. -Pepcid AC as needed for stomach upset (usually from aspirin or ibuprofen). Dressing/Wound care: -Keep Aquacell dressing in place until postoperative follow-up office visit. -Okay to shower. Keep wound out of direct water stream. No soaking or submerging until all the scabs fall off (approximately 6 weeks). -No lotions, ointments, or scar creams directly to the incision until the wound is healed (4-6 weeks), -Please call the office if dressing becomes wet, soiled, or saturated. Activities: -Maintain anterior hip precautions x6 weeks. -Weight-bearing as tolerated. Use front wheeled walker, and progress to cane when safe. -Continue with home exercises as directed by your physical therapist. -Elevate ?toes above the nose if you have significant swelling in your lower leg. (A wedge pillow is easiest.) -Ice your incision as needed for pain/inflammation/swelling. Protect your skin with a folded pillowcase. Follow-up: -Follow-up with your surgeon or PA in the office in 10-14 days after surgery. -Follow-up with your surgeon 6 weeks postoperatively. Call the office if you have chest pain, shortness of breath, significant swelling that will not resolve with elevating, fever over 101?, significantly worsening pain, or are concerned you might need to go to the Emergency Room. [facility]: [phone] Skin/Wound/Dressing Care Report to your healthcare provider any signs of infection, such as:: chills, fever, night sweats, unusual drainage and unusual redness Visit Report/Discharge Packet Instructions: DI for Hip Replacement Stand Alone Forms: Surgery Discharge Discharge Data Primary Care Provider: Stefano Blanchard Attending Provider: Eugenia Leavitt
--- NOTE | 2022-05-11 15:20 | PT.IPTN ---
Current Diagnoses Unilateral primary osteoarthritis, right hip (05/10/22) Personal history of other infectious and parasitic diseases (05/10/22) Surgery Performed Operation Date: 05/10/22 13:45 Actual Procedures p Total Hip Arthroplasty/Anterior Approach(Right) - Eugenia Leavitt MD Physical Therapy Treatment Note M2 PT-IP Current Condition Start: 05/11/22 13:10 Freq: NEEDED Status: Active Protocol: Document 05/11/22 11:08 AB (Rec: 05/11/22 13:29 AB [id number]) Physical Therapy Current Condition Current Condition Evaluation Date 05/11/22 Treatment Diagnosis s/p R JEYSON anterior approach; difficulty in walking Onset Date 05/10/22 M3 PT-IP Subjective Start: 05/11/22 13:10 Freq: NEEDED Status: Active Protocol: Document 05/11/22 14:36 KS (Rec: 05/11/22 15:30 KS [id number]) Subjective Physical Therapy Visit Type Type Treatment Note Visit Start Time 14:36 Visit Stop Time 15:20 Total Visit Minutes 44 Notes Pts spouse present for caregiver training Number of ASSOCIATE PROFESSOR OF MUSICOLOGY Visits 1 Physical Therapy Visit Comments Patient Comments agreeable to do PT M4 PT-IP Mobility and Gait Start: 05/11/22 13:10 Freq: NEEDED Status: Active Protocol: Document 05/11/22 14:36 KS (Rec: 05/11/22 15:30 KS [id number]) PT-Bed Mobility Assessment Supine to Sit Supine to Sit Standby Assistance,1 Person Assistance,Head of Bed Elevated Sit to Supine Sit to Supine Minimal Assistance,1 Person Assistance,Head of Bed Elevated PT-Transfer Assessment Sit to and From Stand Sit to and from Stand Contact Guard Assistance, Minimal Assistance,1 Person Assistance,Use of Upper Extremities Equipment Transfer Assistive Device Gait Belt,Front Wheeled Walker Orthotic/Prosthetic Devices or Brace: No Transfers Transfer Destination Chair,Wheelchair Transfer Technique ambulated w/ FWW Transfer Ability Level of Assist Contact Guard Assistance, Minimal Assistance,1 Person Assistance,Use of Upper Extremities Comments Mobility Comments Pt in bed upon arrival and present for caregiver training. Pt able to recall anterior hip precautions. SBA for sup<>sit and scooting EOB. Demonstrated gait belt application and how to assist w/ STS to pts who was able to safely complete providing Min A. Pts BP 119/54 standing, denied any symptoms . Pt ambulated ~20 ft to chair w/ FWW CGA and took seated rest break. Pt then transferred to w/c for energy conservation for transport to practice stairs. Pt ascended/ descended 3 steps w/ BHR and step to pattern x2, first set w/ this ASSOCIATE PROFESSOR OF MUSICOLOGY and second set w/ her providing CGA and cues for sequencing. Pt ambulated ~50 ft and use w/c for transport back to room. Required Min A for sit<>supine for LE elevation into bed. Reveiwed exercises and at home safety. Pt and spouse feel safe and ready to d/c home, RN aware. Pt left in bed w/ all needs in reach. Gait Assessment Gait Gait Assistance Required: Contact Guard Assist,1 Person Assist Distance (Feet) 50 Able to Maintain Weight Bearing Status Yes During Gait Assistive Devices Assistive Device Gait Belt,Front Wheeled Walker Orthotic/Prosthetic Devices or Brace: No Gait Deviations General Gait Pattern Decreased Stride Length, Decreased Feet Clearance Factors Limiting Gait Function Factors Limiting Gait Function Decreased Activity Tolerance, Decreased Strength,Limited Range of Motion,Pain,Poor Balance,Poor Safety Awareness Comments Gait Comments Pt w/ step to gait pattern, CGA for ambulation w/ FWW w/ cues for proper use. no LOB. Stair Climbing Assessment Evaluation Level of Assist On Stairs Contact Guard Assistance,1 Person Assistance Devices Stair Climbing Assistive Devices Left Railing,Right Railing Technique/Endurance Stair Climbing Direction Ascend and Descend Stair Climbing Technique Step to Step Number of Steps Climbed 3 Stair Climbing Set # Repetitions (reps) 2 Comments Stair Climbing Comments Pt ascended/descended 6 total steps w/ bilateral hand rails and step to pattern w/ cues for sequencing. was able to safely assist and pts and feel safe to complete steps leading into home. PT-Balance Assessment Sitting Balance and Reactions Static Sitting Balance Ability Good Dynamic Sitting Balance Ability Good Standing Balance and Reactions Static Standing Balance Ability Good Dynamic Standing Balance Ability Fair Device Used FWW M5 PT-IP Objective Assessments Start: 05/11/22 13:10 Freq: NEEDED Status: Active Protocol: Document 05/11/22 11:08 AB (Rec: 05/11/22 13:29 AB [id number]) Orientation Orientation/Cognition Level of Alertness Alert Orientation Name,Situation Language Function Ability No Deficits Noted Safety Awareness Decreased Safety Awareness Memory Description Short Term Impaired Gross Range of Motion Lower Extremity ROM Assessment Within Functional Limits Strength Lower Extremity Strength Assessment Right Impaired Comments Strength Comments c/o increase R hip pain with movement affecting strength testing Sensation Assessment Sensation Gross Sensation WNL Muscle Tone Muscle Tone WNL Yes M6 PT-IP Treatment Start: 05/11/22 13:10 Freq: NEEDED Status: Active Protocol: Document 05/11/22 14:36 KS (Rec: 05/11/22 15:30 KS [id number]) Physical Therapy Treatment Education Education Provided Precautions,Weight Bearing Status,Post-Op Packet,Safety M7 PT-IP Assessment and Plan Start: 05/11/22 13:10 Freq: NEEDED Status: Active Protocol: Document 05/11/22 14:36 KS (Rec: 05/11/22 15:30 KS [id number]) PT Summary Assessment and Plan Potential Rehabilitation Potential Good Summary Impairments Pain,ROM,Strength,Balance, Coordination,Sensation,Tone, Cognition,Bed Mobility, Transfers,Gait,Activity Tolerance Assessment Summary Pt much improved requiring at most Min A for bed mobility, CGA for transfers, ambulation, and stairs. was able to provided assist w/ gait belt, transfers, ambulation, and stairs. Pt ascended/ descended 6 total steps w/ BHR and ambulated ~50 ft CGA. Both pt and feel safe to d/c home. Pt will benefit from OPPT to improve strength, stability, and gait. Goals Bed Mobility Goal Standby Assistance Transfer Goal Standby Assistance,Front Wheeled Walker Gait Goal Standby Assistance,Front Wheel Walker Gait Distance 150 Other Goals up/down 7 steps B rails SBA Days to Meet Goals 5 Frequency of Treatment Frequency Of Treatment Twice a Day Treatment Plan Physical Therapy Treatment Plan Bed Mobility Training,Transfer Training,Gait Training, Therapeutic Exercise,Balance Retraining,Post Op Education, Discharge Planning,Hot or Cold Pack,Neuromuscular Re-ed, Coordination Retraining,Manual Therapy Precautions Anterior Hip Precautions No Hip Extension,No Hip External Rotation Weight Bearing Status Weight Bearing Status Weight Bear as Tolerated Allowed Weight Bearing Amount (enter % RLE WBAT or #) (%) Recommendations To Nursing Amount of Assist Needed 1 Person Assist Discharge Recommendations PT Discharge Recommendations Home with 24/04 Assist Available,Outpatient PT Transportation Needs at Discharge Private Vehicle
== END 2022-05-11 15:55 | disposition home or self-care (01) ==
LOC: OR 11:46 → AC 11:46
PROVIDERS: PCP Registered Nurse Diabetes Educator; Referring Provider Orthopaedic Surgery; Visit Provider Orthopaedic Surgery
PROC: (CPT 27130; principal; 2022-05-10 13:45)
DX: M16.11 Unilateral primary osteoarthritis, right hip (principal); Z86.19 Personal history of other infectious and parasitic diseases
CPT/HCPCS: 27130; 36415; 73502; 85014; 85018; 97116; 97162; 97530; C1776; C9290; J0171; J0690; J1170; J1885; J2250; J2405; J2704; J3010

== ENCOUNTER → 2022-09-02 07:14 | Outpatient (CLI) | payer OTHER, MEDICARE, SELFPAY ==
[2022-05-10 21:33] VITALS: BMI 38.0
[2022-09-02 08:16] LABS: Hematocrit 40.4 % (36-46); Hemoglobin 12.8 g/dL (12.0-16.0); Mean Corpuscular HGB Conc 31.8 % (30-36); Mean Corpuscular Hemoglobin 25.9 PG (26-34); Mean Corpuscular Volume 81.7 fL (80-100); Platelet Count 299 X10^3/uL (150-400); Red Blood Cell Count 4.95 X10^6/uL (4.0-5.2); Red Cell Distribution Width 17.3 % (11.6-14.8); White Blood Cell Count 5.8 X10^3/uL (4.5-11.0)
[2022-09-02 08:42] LABS: Alanine Aminotransferase 16 IU/L (<35); Albumin Globulin Ratio 1.2 (1.0-2.8); Alkaline Phosphatase 81 U/L (38-126); Aspartate Aminotransferase 23 IU/L (14-36); BUN Creatinine Ratio 38.9 (6-22); Bilirubin Total 0.2 mg/dL (0.2-1.3); Blood Urea Nitrogen 21 mg/dL (7-17); Calcium 8.9 mg/dL (8.4-10.2); Carbon Dioxide 28 mmol/L (22-32); Chloride 106 mmol/L (98-107); Estimated Glomerular Filt Rate > 60 mL/min (>60); Globulin 3.3 g/dL (1.7-4.1); Glucose 93 mg/dL (80-110); HEMOLYSIS < 15 (0-50); Potassium 4.1 mmol/L (3.4-5.1); Sodium 140 mmol/L (137-145); Total Protein 7.3 g/dL (6.3-8.2)
== END ==
PROVIDERS: PCP Registered Nurse Diabetes Educator; Referring Provider Registered Nurse Diabetes Educator; Visit Provider Registered Nurse Diabetes Educator
DX: D64.9 Anemia, unspecified (principal); Z86.19 Personal history of other infectious and parasitic diseases
CPT/HCPCS: 36415; 80053; 85027

== ENCOUNTER → 2022-10-11 14:59 | Outpatient (CLI) | payer OTHER, MEDICARE, SELFPAY ==
[2022-05-10 21:33] VITALS: BMI 38.0
[2022-10-11 15:50] LABS: COVID19 -Nasal RAPID Negative (Negative)
== END ==
PROVIDERS: PCP Registered Nurse Diabetes Educator; Visit Provider Surgery
DX: Z01.812 Encounter for preprocedural laboratory examination (principal); Z20.822 Contact with and (suspected) exposure to COVID-19
CPT/HCPCS: 87635; C9803

== ENCOUNTER 2022-10-13 07:39 | Day surgery (SDC) | payer OTHER, MEDICARE, SELFPAY ==
[2022-05-10 21:33] VITALS: BMI 38.0
[2022-10-13 08:09] VITALS: BP 146/85; PULSE 77; RESP 16; TEMP 36.1; O2SAT 97; BMI 36.1
[2022-10-13] MEDS: LACTATED RINGERS 1,000 ML 42 ML IV (08:29)
--- NOTE | 2022-10-13 08:53 | PM.HP.1 ---
History of Present Illness History of Present Illness Date Patient Seen: 10/13/22 Time Patient Seen: 08:53 Chief complaint: Colonoscopy Narrative: Marlyn is a 67-year-old woman who is here for colonoscopy. She believes her last 1 was about 5 years ago. She has had polyps removed in the past. She is adopted and does not know if she has any family history of colon cancer. Patient History Medical History (Updated 10/13/22 @ 08:54 by Krunal Vergara MD) Abnormal Pap smear of cervix (1987) Asthma Chronic pain of left knee Colon polyps (2010) Elevated TSH Flexor tenosynovitis of finger GERD (gastroesophageal reflux disease) Hepatitis C (2013) Hiatal hernia (2007) History of hepatitis C Osteopenia after menopause Seasonal allergies Syphilis (~1969) Vitamin D deficiency Surgical History Anesthesia History of bunionectomy of left great toe History of orthopedic surgery (04/02/20) History of orthopedic surgery (~03/2020) History of tonsillectomy (~1962) History of total left knee replacement (TKR) (03/30/17) Hx of cholecystectomy (07/18/20) Hx of foot surgery (08/16/19) Hx of foot surgery (09/16/21) Status post breast reduction (1999) Status post colonoscopy (2008) Status post colonoscopy (2011) Status post dilation and curettage Status post knee surgery (03/2012) Status post knee surgery (2011) Status post LASIK surgery Status post trigger finger release Status post tubal ligation (1987) Family & Social History Family History Unknown No problems noted. Social History: household members spouse Tobacco & Substance use: Smoking Status Never smoker alcohol intake former Substance Use Type does not use Meds Home Medications and Allergies Home Medications Medication Instructions Recorded Confirmed Type calcium carbonate 500 mg calcium 1,000 mg PO DAILY 07/18/20 10/13/22 History (1,250 mg) tablet (Calcium 500) omega 1-xlz-zwa-fish oil 1,000 mg 1 cap PO DAILY 07/18/20 10/13/22 History (120 mg-180 mg) capsule (Fish Oil) celecoxib 100 mg capsule (Celebrex) 100 mg PO BID #180 caps 09/20/22 10/13/22 Rx Allergies Allergy/AdvReac Type Severity Reaction Status Date / Time codeine AdvReac Severe Vomiting Verified 10/13/22 08:03 [From Tylenol-Codeine #3] oxycodone AdvReac Intermediate Vomiting Verified 10/13/22 08:03 Exam Vital Signs (past 8 hours): - 10/13/22 08:09 Temperature 96.9 F L Pulse Rate 77 Respiratory Rate 16 Blood Pressure 146/85 H Pulse Oximetry 97 Oxygen Delivery Method Room Air Oxygen Delivery Method Room Air Const General: No acute distress Assessment & Plan Assessment and plan (1) History of colon polyps: Status: Acute Plan Marlyn is a 67-year-old woman who has a history of colon polyps. She is here for colonoscopy today. We reviewed the risks and benefits and she would like to proceed. Time Spent With Patient Critical Care time: I spent a total of [] minutes of critical care time on this patient's care today; this time is exclusive of procedural time.
[2022-10-13 09:26] VITALS: BP 138/74; PULSE 65; RESP 18; TEMP 36.2; O2SAT 100
--- NOTE | 2022-10-13 09:26 | P.OP.COLON_ITS ---
Operative Date/Time/Diagnoses Date of procedure: 10/13/22 Time of procedure: 09:26 Pre-op diagnosis: Colon cancer screening Post-op diagnosis: same Procedure & Clinicians Study performed: Colonoscopy Same procedure as scheduled: Yes Surgeon: Krunal Vergara Procedure Notes Procedure in detail: Surgeon: Krunal Vergara MD Anesthesia: Ana Morelos CRNA Procedure: The patient was brought to the endoscopy suite, placed in left lateral decubitus position. The patient was connected to monitoring devices. A time-out was performed. Sedation was administered. Once the patient was adequately sedated, a digital rectal exam was performed and was normal. The scope was then inserted and advanced to the cecum where the appendiceal orifice was identified and photographed. The scope was then slowly withdrawn over greater than 6 minutes. The mucosa was thoroughly inspected. No polyps or oth er lesions were noted. 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 The scope was retroflexed in the rectum. No abnormalities were seen. The scope was straightened and removed. The patient was awakened and brought to recovery. Scope withdrawal time: 7 minutes Sedation time: 20 minutes EBL: 0 Findings: Melanosis coli Post-procedure Recommendations: Colonoscopy in 10 years Disposition: PACU
[2022-10-13 09:31] VITALS: BP 146/86; PULSE 64; RESP 17; O2SAT 99
[2022-10-13 09:36] VITALS: BP 144/83; PULSE 62; RESP 15; O2SAT 100
[2022-10-13 09:41] VITALS: BP 133/64; PULSE 64; RESP 16; TEMP 36.2; O2SAT 98
[2022-10-13 09:46] VITALS: BP 137/82; PULSE 66; RESP 13; TEMP 36.2; O2SAT 100
== END 2022-10-13 10:05 | disposition home or self-care (01) ==
PROVIDERS: PCP Registered Nurse Diabetes Educator; Referring Provider Surgery; Visit Provider Surgery
PROC: 0DJD8ZZ Inspection of Lower Intestinal Tract, Via Natural or Artificial Opening Endoscopic (ICD-10-PCS; CPT 45378; principal; 2022-10-13 08:45)
DX: Z12.11 Encounter for screening for malignant neoplasm of colon (principal); K63.89 Other specified diseases of intestine
CPT/HCPCS: 45378; J2704

== ENCOUNTER → 2022-10-22 08:35 | Outpatient (CLI) | payer OTHER, MEDICARE, SELFPAY ==
[2022-05-10 21:33] VITALS: BMI 38.0
[2022-10-22 10:27] LABS: Cholesterol 139 mg/dL (140-199); HDL Cholesterol 51 mg/dL (40-60); LDL Cholesterol Calculated 71 mg/dL (<100); Triglycerides 83 mg/dL (35-150)
== END ==
PROVIDERS: PCP Registered Nurse Diabetes Educator; Referring Provider Registered Nurse Diabetes Educator; Visit Provider Registered Nurse Diabetes Educator
DX: Z00.00 Encounter for general adult medical examination without abnormal findings (principal)
CPT/HCPCS: 36415; 80061

== ENCOUNTER → 2022-11-22 15:34 | Outpatient (CLI) | payer OTHER, MEDICARE, SELFPAY ==
[2022-05-10 21:33] VITALS: BMI 38.0
[2022-11-22 16:35] LABS: Influenza A - CEPHEID Flu A NEGATIVE (NEGATIVE); Influenza B - CEPHEID Flu B NEGATIVE (NEGATIVE); Respiratory Syncytial Virus Negative (Negative)
[2022-11-22 16:52] LABS: COVID-19 CEPHEID 4-PLEX PCR Negative (Negative)
== END ==
PROVIDERS: PCP Registered Nurse Diabetes Educator; Visit Provider Nurse Practitioner Family
DX: R05.9 Cough, unspecified (principal)
CPT/HCPCS: 0241U

== ENCOUNTER → 2022-11-22 15:55 | Outpatient (CLI) | payer OTHER, MEDICARE, SELFPAY ==
[2022-05-10 21:33] VITALS: BMI 38.0
--- NOTE | 2022-11-22 15:57 | DI.RAD.S_ITS ---
PROCEDURE: XR CHEST 2V INDICATIONS: ongoing cough TECHNIQUE: 2 views of the chest were acquired. COMPARISON: [facility], CR, XR CHEST 2V, 04/09/2018, 13:21. FINDINGS: Surgical changes and devices: None. Lungs and pleura: Lungs are clear. No pleural effusions or pneumothorax. Mediastinum: Mediastinal contours are normal. Heart size is normal. Bones and chest wall: No suspicious bony abnormalities. Soft tissues appear unremarkable. IMPRESSION: No acute cardiopulmonary disease process. Dictated by: Yael Berry MD, PhD on 11/22/2022 at 16:33 Approved by: Yael Berry MD, PhD on 11/22/2022 at 16:33
== END ==
PROVIDERS: PCP Registered Nurse Diabetes Educator; Referring Provider Nurse Practitioner Family; Visit Provider Nurse Practitioner Family
DX: R05.9 Cough, unspecified (principal)
CPT/HCPCS: 0241U; 71046

== ENCOUNTER → 2023-01-24 14:46 | Outpatient (CLI) | payer OTHER, MEDICARE, SELFPAY ==
[2022-05-10 21:33] VITALS: BMI 38.0
--- NOTE | 2023-01-24 15:04 | DI.DEXA.S_ITS ---
Bone Density Report Name: ANTHONY AMBRIZ Age: 67 Sex: Female Ethnicity: White Date of : 1955 Indication: osteopenia; Referring Provider: SANJU LEARY Study: Bone densitometry was performed. Exam Date: January 24, 2023 Accession number: [id number] Bone Density: Region BMD T-score Z-score Classification AP Spine(L1-L4) 0.939 -1.0 1.0 Normal Femoral Neck (Left) 0.698 -1.4 0.3 Osteopenia Total Hip (Left) 0.845 -0.8 0.6 Normal Total Forearm (Left) 0.585 0.1 1.9 Normal 1/3 Forearm (Left) 0.652 -0.7 1.2 Normal UD Forearm (Left) 0.490 0.8 2.2 Normal World Health Organization criteria for BMD impression classify patients as: Normal (T-score at or above -1.0), Osteopenia (T-score between -1.0 and -2.5), or Osteoporosis (T-score at or below -2.5). 10-year Fracture Risk(1): Major Osteoporotic Fracture 8.4% Hip Fracture 0.8% Reported Risk Factors: [place] (), Neck BMD=0.698, BMI=36.3 (1) FRAX(R) Version 3.08. Fracture probability calculated for an untreated patient. Fracture probability may be lower if the patient has received treatment. Previous Exams: -- Region Exam Age BMD T-score BMD Change BMD Change Date g/cm2 vs Baseline vs Previous -- AP Spine (L1-L4) 01/24/2023 67 0.939 -1.0 0.054 (6.1%)# 0.054 (6.1%)# 02/04/2021 65 0.885 -1.5 Total Hip(Left) 01/24/2023 67 0.845 -0.8 0.017 (2.0%)# 0.017 (2.0%)# 02/04/2021 65 0.828 -0.9 -- *Denotes significance at 95% confidence level, LSC for AP Spine = 0.022 g/cm2, LSC for Total Hip = 0.027 g/cm2 # Denotes dissimilar scan types or analysis methods Impression: The patient has low bone mass, based on the Left Femoral Neck T-score. The patient has an estimated ten-year risk of hip fracture of 0.8% and an estimated ten-year risk of major fracture of 8.4%, based on the WHO FRAX algorithm. No significant bone loss was observed. Discussion: BONE DENSITY IS LOW AT ONE OR MORE SKELETAL SITES. This patient's lowest T-score is low at one or more skeletal sites. It meets the World Health Organization's (WHO) criteria for ?low bone mass? (T-score between -1.0 and -2.5). The patient's 10-year risk of fracture as calculated by FRAX is less than the threshold where pharmacological therapy is recommended by the National Osteoporosis Foundation (NOF). However, all treatment decisions require clinical judgment and consideration of individual patient factors, including patient preferences, comorbidities, previous drug use, risk factors not captured in the FRAX model (e.g., frailty, falls, vitamin D deficiency, increased bone turnover, interval significant decline in bone density) and possible under or overestimation of fracture risk by FRAX. The patient should follow a healthful lifestyle (good nutrition with adequate calcium and vitamin D, and appropriate weight-bearing exercise). Follow-Up: Consider repeating this study in 2 to 3 years to reassess this patient's status, or sooner if there is some new clinical indication. Reported by: ALEXANDRA LUI M.D. on 01/24/2023 3:13:00 PM.
== END ==
PROVIDERS: PCP Registered Nurse Diabetes Educator; Referring Provider Registered Nurse Diabetes Educator; Visit Provider Registered Nurse Diabetes Educator
DX: M85.852 Other specified disorders of bone density and structure, left thigh (principal); Z78.0 Asymptomatic menopausal state
CPT/HCPCS: 77080

== ENCOUNTER → 2023-04-12 16:31 | Outpatient (CLI) | payer OTHER, MEDICARE, SELFPAY ==
[2022-05-10 21:33] VITALS: BMI 38.0
--- NOTE | 2023-04-12 16:38 | DI.RAD.S_ITS ---
PROCEDURE: XR HIP W PEL IF DONE RT 2V INDICATIONS: Right hip pain after fall TECHNIQUE: AP pelvis with lateral view(s) of the right hip(s). COMPARISON: [facility], CR, XR PELVIS WITH LATERAL HIP RIGHT, 04/05/2022, 11:01. [facility], CR, XR HIP W PEL IF DONE RT 2V, 05/10/2022, 15:54. [facility], CR, XR HIP W PEL IF DONE RT 2V, 05/10/2022, 17:25. FINDINGS: Bones: No acute appearing fractures or dislocations. Chronic fracture fragments can be seen adjacent to the right greater trochanter. Pelvic ring appears intact. No suspicious bony lesions. Right hip arthroplasty hardware is seen, which appears intact. Age-appropriate lower lumbar spine degenerative changes are noted. Soft tissues: The visualized bowel gas pattern is normal. No suspicious soft tissue calcifications. IMPRESSION: Intact appearing right hip arthroplasty hardware. No acute fractures are seen. If there is point tenderness (or other clinical suspicion for a fracture not seen on these images) then a dedicated CT could be considered for further evaluation, if clinically appropriate. Dictated by: Nathan Simon M.D. on 04/12/2023 at 17:12 Approved by: Nathan Simon M.D. on 04/12/2023 at 17:14
== END ==
PROVIDERS: PCP Registered Nurse Diabetes Educator; Referring Provider Physician Assistant; Visit Provider Physician Assistant
DX: M25.551 Pain in right hip (principal); Z96.641 Presence of right artificial hip joint
CPT/HCPCS: 73502

== ENCOUNTER 2023-07-12 08:09 | Emergency (ER) | payer OTHER, SELFPAY ==
[2022-05-10 21:33] VITALS: BMI 38.0
[2023-07-12 08:14] VITALS: PULSE 81; O2SAT 95
[2023-07-12 08:15] VITALS: BP 177/86; PULSE 78; O2SAT 99
[2023-07-12 08:17] VITALS: BP 177/86; PULSE 78; RESP 18; TEMP 36.2; O2SAT 99; BMI 29.9
--- NOTE | 2023-07-12 08:27 | ED.FALL ---
HPI - Fall General Chief Complaint: Fall Stated Complaint: fell Jun 22/knot on head/headaches Time Seen by Provider: 07/12/23 08:23 Source: patient Mode of arrival: Ambulatory History of Present Illness HPI Narrative: Patient here for persistent headache and pain in the left eyebrow area since falling June 22, 2023. She was walking up her steps carrying a lot of items tripped and fell against a sonia pot. Hit her left forehead eyebrow against it. She denies any loss of consciousness. [place] dazed. But since then no nausea or vomiting no vision changes not repeating questions no irritability. Swelling around the left eyebrow has improved but still persistent.. She did have bruising around the left and right eye which has resolved. Denies any other injuries. No altered mental status or confusion. Patient is not on any blood thinners Related Data Home Medications Medication Instructions Recorded Confirmed calcium carbonate 500 mg calcium 1,000 mg PO DAILY 07/18/20 07/12/23 (1,250 mg) tablet (Calcium 500) omega 1-cfj-bzg-fish oil 1,000 mg 1 cap PO DAILY 07/18/20 07/12/23 (120 mg-180 mg) capsule (Fish Oil) amoxicillin 500 mg tablet 2,000 mg PO 12/28/22 07/12/23 gabapentin 300 mg capsule 300 mg PO 04/12/23 07/12/23 Previous Rx's Medication Instructions Recorded celecoxib 100 mg capsule (Celebrex) 100 mg PO BID #180 caps 09/20/22 albuterol sulfate 90 mcg/actuation 2 puff inhalation Q6H PRN 11/22/22 aerosol inhaler shortness of breath or wheezing #8.5 grams Allergies Allergy/AdvReac Type Severity Reaction Status Date / Time codeine AdvReac Severe Vomiting Verified 07/12/23 07:31 [From Tylenol-Codeine #3] oxycodone AdvReac Intermediate Vomiting Verified 07/12/23 07:31 Review of Systems Review of Systems Narrative: GENERAL: negative chills, fatigue, malaise, fever, sweats. HEENT: negative sinus pain, ear pain, sore throat RESPIRATORY: negative dyspnea, cough CARDIOVASCULAR: negative chest pain, palpitations GASTROINTESTINAL: negative nausea, vomiting, abdominal pain : negative dysuria, frequency, hematuria MUSCULOSKELETAL: Positive muscle or bony pain SKIN: negative rash, skin lesions NEUROLOGIC: negative weakness, numbness, positive headache ROS Unobtainable: All systems reviewed & are unremarkable except as noted in HPI and below Patient History Medical History Chronic pain of left knee Asthma Seasonal allergies History of hepatitis C Elevated TSH Vitamin D deficiency Flexor tenosynovitis of finger Osteopenia after menopause Abnormal Pap smear of cervix (1987) Hiatal hernia (2007) GERD (gastroesophageal reflux disease) Colon polyps (2010) Syphilis (~1970) Hepatitis C (2013) Surgical History History of orthopedic surgery (~03/2020) Hx of foot surgery (09/16/21) Hx of foot surgery (08/16/19) History of orthopedic surgery (04/02/20) Hx of cholecystectomy (07/18/20) History of bunionectomy of left great toe Status post LASIK surgery Status post trigger finger release Anesthesia Status post knee surgery (2011) History of total left knee replacement (TKR) (03/30/17) Status post dilation and curettage History of tonsillectomy (~1962) Status post tubal ligation (1987) Status post knee surgery (03/2012) Status post breast reduction (1999) Status post colonoscopy (2011) Status post colonoscopy (2008) Family History Unknown No problems noted. Social History household members: spouse Smoking Status: Never smoker second hand exposure: No alcohol intake: former substance use type: does not use Smoking Status: Never smoker Substance Use Type: does not use Exam Narrative Exam Narrative: GENERAL: in no distress, not toxic not dyspneic HEAD: Normocephalic. There is mild tenderness to the left eyebrow with small 1.5 cm area of edema. Scalp and skull nontender no crepitus or step-off. EYES: Pupils equal round ENT: Mucous membranes moist. NECK: Trachea midline. No midline tenderness or step-off of the posterior cervical spine. Nontender with rotating head or tilting head up and down CARDIOVASCULAR: Regular rate and rhythm RESPIRATORY: Clear to auscultation. Breath sounds equal bilaterally. No wheezes, rales, or rhonchi. GASTROINTESTINAL: Abdomen soft, non-tender EXTREMITIES: No gross deformities. BACK: No flank tenderness. NEURO: AOx4. Clear speech no facial droop light touch intact bilateral face hands and legs. Strong equal butadiene converter helper. Negative pronator drift. Elevate each leg independently off the bed. SKIN: Warm and dry PSYCH: Not anxious, is cooperative Initial Vital Signs Initial Vital Signs: Vital Signs Pulse Rate 81 07/12/23 08:14 Pulse Oximetry 95 07/12/23 08:14 Course Orders Ordered: ED Orders 07/12/23 08:26 CT facial bones wo con Stat CT head/brain wo con Stat 07/12/23 08:31 CT cervical spine wo con Stat Vital Signs Vital signs: Vital Signs - 8 hr 07/12/23 08:14 07/12/23 08:15 07/12/23 08:15 Temperature Pulse Rate 81 78 Respiratory Rate Blood Pressure 177/86 H Pulse Oximetry 95 99 Oxygen Delivery Method 07/12/23 08:17 07/12/23 08:36 07/12/23 09:00 Temperature 97.2 F L Pulse Rate 78 68 60 Respiratory Rate 18 Blood Pressure 177/86 H Pulse Oximetry 99 98 98 Oxygen Delivery Method Room Air MDM - Fall Imaging Data CT scan - head: Radiologist's Impression: [place] [address] CT Scan Report Signed Patient: Manju Bolivar MR#: [id number] : 1955 Acct:[id number] Age/Sex: 68 / F Date of Service: 07/12/23 Loc: ED Accession Number: [id number] Procedure: CT head/brain wo con Ordering Provider: Gaston Castillo MD PROCEDURE: CT HEAD/BRAIN WO CON INDICATIONS: Fall/poly trauma/pain TECHNIQUE: Noncontrast 4.5 mm thick angled axial sections acquired from the foramen magnum to the vertex, with coronal and sagittal reformats. For radiation dose reduction, the following was used: automated exposure control, adjustment of mA and/or kV according to patient size. COMPARISON: [facility], CT, CT FACIAL BONES WO CON, 07/12/2023, 8:30. [facility], CT, CT CERVICAL SPINE WO CON, 07/12/2023, 8:30. FINDINGS: Image quality: Excellent. CSF spaces: Basal cisterns are patent. No extra-axial fluid collections. Ventricles are normal in size and shape. Brain: No midline shift. No intracranial masses or hemorrhage. Clark-white matter interface is normal. Skull and face: Calvarium and visualized facial bones are intact, without suspicious lesions. Small left frontal scalp hematoma. Sinuses: Visualized sinuses and mastoids are clear. IMPRESSION: 1. No acute intracranial process. 2. Small left frontal scalp hematoma. Dictated by: Yulia Ha M.D. on 07/12/2023 at 9:04 Approved by: Yulia Ha M.D. on 07/12/2023 at 9:05 CT - cervical spine: Radiologist's Impression: [address] [address] [address] Scan Report Signed Patient: Manju Bolivar MR#: [id number] : 1955 Acct:[id number] Age/Sex: 68 / F Date of Service: 07/12/23 Loc: ED Accession Number: [id number] Procedure: CT cervical spine wo con Ordering Provider: Gaston Castillo MD PROCEDURE: CT CERVICAL SPINE WO CON INDICATIONS: Fall/poly trauma/pain TECHNIQUE: Noncontrast 3 mm thick sections acquired from the skull base to the T4 level. Sagittal and coronal reformats were then constructed. For radiation dose reduction, the following was used: automated exposure control, adjustment of mA and/or kV according to patient size. COMPARISON: [facility], CT, CT HEAD/BRAIN WO CON, 07/12/2023, 8:30. FINDINGS: Image quality: Excellent. Bones: No fractures or dislocations. Visualized superior ribs are intact. Cervical straightening with multilevel degenerative changes are present. Soft tissues: Prevertebral soft tissues are normal in thickness. No paravertebral hematomas. No apical pneumothoraces. IMPRESSION: Degenerative changes of visualized fracture. Dictated by: Yulia Ha M.D. on 07/12/2023 at 9:01 Approved by: Yulia Ha M.D. on 07/12/2023 at 9:02 CT facial bone: Radiologist's Impression: [address] [address] [address] Scan Report Signed Patient: Manju Bolivar MR#: [id number] : 1955 Acct:[id number] Age/Sex: 68 / F Date of Service: 07/12/23 Loc: ED Accession Number: [id number] Procedure: CT facial bones wo con Ordering Provider: Gaston Castillo MD PROCEDURE: CT FACIAL BONES WO CON INDICATIONS: Fall/poly trauma/pain TECHNIQUE: Noncontrast 2.5 mm thick axial images acquired from the mandible through the frontal sinuses, with coronal and sagittal reformatting. For radiation dose reduction, the following was used: automated exposure control, adjustment of mA and/or kV according to patient size. COMPARISON: [facility], CT, CT HEAD/BRAIN WO CON, 07/12/2023, 8:30. [facility], CT, CT CERVICAL SPINE WO CON, 07/12/2023, 8:30. FINDINGS: Image quality: Excellent. Bones and teeth: Orbital haynes are intact. Sinus haynes show no fracture or deformity. Nasal bones and septum are intact. Visualized portions of the mandible demonstrate no fractures or subluxation. Zygomatic arches are intact. Pterygoid plates are intact. Visualized portions of the skull base and auditory canals are intact. Sinuses: Small mucous retention cyst versus polyp is present in the left maxillary sinus. Leftward nasal septal deviation is present.. Mastoid air cells are aerated. Soft tissues: Small scalp hematoma/laceration in the left frontal lobe. Vascular: Visualized vascular structures appear normal in the absence of contrast. Bony vascular foramina and canals are intact. IMPRESSION: Left frontal scalp hematoma. No underlying fracture. Dictated by: Yulia Ha M.D. on 07/12/2023 at 9:02 Approved by: Yulia Ha M.D. on 07/12/2023 at 9:03 [facility] Narrative Medical decision making narrative: Patient here for persistent headache and pain in the left eyebrow area since falling June 22, 2023. She was walking up her steps carrying a lot of items tripped and fell against a sonia pot. Hit her left forehead eyebrow against it. She denies any loss of consciousness. [place] dazed. But since then no nausea or vomiting no vision changes not repeating questions no irritability. Swelling around the left eyebrow has improved but still persistent.. She did have bruising around the left and right eye which has resolved. Denies any other injuries. No altered mental status or confusion. She is not on any blood thinners After history and exam CT head cervical spine facial bones MDM CC: Headache Complicating co-morbidities: None Data collected from: Patient Medical records reviewed: No recent visit for this complaint Differential considered: Includes but not limited to concussion postconcussion syndrome intracranial bleed subdural hematoma epidural hematoma skull fracture contusion Exam documented above, pertinent findings include: Tender left eyebrow Imaging studies independently reviewed: CT head CT facial bone CT cervical spine no acute finding Consultations: None required Treatments: None Re-evaluations: Reviewed results with patient. At this time they are reassuring. No fracture or intracranial bleed. It will take time to resolve. Concussive syndrome reviewed with patient. Symptoms may persist for at least 2-4 weeks. Ujst-flq-uoidnea ibuprofen and Tylenol suggested for pain. Needs to follow up with primary care as well. Nontoxic at discharge. She desires discharge home Discussion: Appropriate for discharge home exam and imaging are reassuring. Return precautions reviewed with patient. Nontoxic at discharge. Patient desires discharge home. Diagnosis: Concussion scalp hematoma/contusion Discharge Plan Departure Patient Disposition: Home Clinical Impression: Post-concussion syndrome Contusion of forehead Qualifiers: Encounter type: initial encounter Qualified Code(s): S00.83XA - Contusion of other part of head, initial encounter Instructions: DI for Concussion, DI for Contusion, DI for Closed Head Injury Activity Restrictions/Additional Instructions: See family doctor in a week for re-evaluation. Today's CT scan imaging are reassuring. You may have had a mild concussion when you hit your head. Headaches may persist for a few weeks. May continue ibuprofen Tylenol for pain. Return if worse if any questions or concerns. It will take time for the swelling to resolve. Prescriptions: No Action gabapentin 300 mg capsule 300 mg PO Patient Comments: TAKE 1 CAPSULE BY MOUTH AT NIGHT. OK TO TAKE UP TO 3 TIMES A DAY celecoxib [Celebrex] 100 mg capsule 100 mg PO BID Qty: 180 3RF albuterol sulfate 90 mcg/actuation HFA aerosol inhaler 2 puff inhalation Q6H PRN (Reason: shortness of breath or wheezing) Qty: 8.5 0RF amoxicillin 500 mg tablet 2,000 mg PO Patient Comments: TAKE 4 TABLETS BY MOUTH 1 HOUR PRIOR TO DENTAL PROCEDURE calcium carbonate [Calcium 500] 500 mg calcium (1,250 mg) Tablet 1,000 mg PO DAILY omega 1-hik-pss-fish oil [Fish Oil] 1,000 mg (120 mg-180 mg) Capsule 1 cap PO DAILY Referrals: Stefano Blanchard ARNP [Primary Care Provider] - Stand Alone Forms: Patient Portal/API
--- NOTE | 2023-07-12 08:31 | DI.CT.S_ITS ---
PROCEDURE: CT CERVICAL SPINE WO CON INDICATIONS: Fall/poly trauma/pain TECHNIQUE: Noncontrast 3 mm thick sections acquired from the skull base to the T4 level. Sagittal and coronal reformats were then constructed. For radiation dose reduction, the following was used: automated exposure control, adjustment of mA and/or kV according to patient size. COMPARISON: [facility], CT, CT HEAD/BRAIN WO CON, 07/12/2023, 8:30. FINDINGS: Image quality: Excellent. Bones: No fractures or dislocations. Visualized superior ribs are intact. Cervical straightening with multilevel degenerative changes are present. Soft tissues: Prevertebral soft tissues are normal in thickness. No paravertebral hematomas. No apical pneumothoraces. IMPRESSION: Degenerative changes of visualized fracture. Dictated by: Yulia Ha M.D. on 07/12/2023 at 9:01 Approved by: Yulia Ha M.D. on 07/12/2023 at 9:02
[2023-07-12 08:36] VITALS: PULSE 68; O2SAT 98
[2023-07-12 09:00] VITALS: PULSE 60; O2SAT 98
== END 2023-07-12 09:36 | disposition home or self-care (01) ==
PROVIDERS: Emergency Provider Emergency Medicine; PCP Registered Nurse Diabetes Educator
DX: S06.0X0A Concussion without loss of consciousness, initial encounter (principal); S00.83XA Contusion of other part of head, initial encounter; W01.10XA Fall on same level from slipping, tripping and stumbling with subsequent striking against unspecified object, initial encounter
CPT/HCPCS: 70450; 70486; 72125; 99283; 99284

== ENCOUNTER → 2024-03-27 10:10 | Outpatient (CLI) | payer OTHER, SELFPAY ==
[2022-05-10 21:33] VITALS: BMI 38.0
[2024-03-27 11:34] LABS: Add Manual Diff / Slide Review NO; Basophils Absolute Auto 100 /uL (0-100); Basophils Percent Auto 1.4 % (0-2); Eosinophils Absolute Auto 300 /uL (0-450); Eosinophils Percent Auto 5.9 % (2-4); Hematocrit 44.2 % (36-46); Lymphocytes Absolute Auto 1200 /uL (1100-4500); Lymphocytes Percent Auto 25.1 % (25-40); Mean Corpuscular HGB Conc 34.1 % (30-36); Mean Corpuscular Hemoglobin 31.1 PG (26-34); Mean Corpuscular Volume 91.3 fL (80-100); Monocytes Absolute Auto 400 /uL (0-900); Monocytes Percent Auto 8.2 % (3-14); Neutrophils Absolute Auto 2900 /uL (1500-7000); Neutrophils Percent Auto 59.4 % (50-75); Platelet Count 281 X10^3/uL (150-400); Red Blood Cell Count 4.84 X10^6/uL (4.0-5.2); Red Cell Distribution Width 13.1 % (11.6-14.8); White Blood Cell Count 4.8 X10^3/uL (4.5-11.0)
[2024-03-27 12:15] LABS: Alanine Aminotransferase 16 IU/L (<35); Albumin 4.4 g/dL (3.5-5.0); Albumin Globulin Ratio 1.2 (1.0-2.8); Alkaline Phosphatase 69 U/L (38-126); Aspartate Aminotransferase 37 IU/L (14-36); BUN Creatinine Ratio 23.9 (6-22); Bilirubin Total 0.8 mg/dL (0.2-1.3); Blood Urea Nitrogen 16 mg/dL (7-17); Calcium 9.2 mg/dL (8.4-10.2); Carbon Dioxide 29 mmol/L (22-32); Chloride 105 mmol/L (98-107); Estimated Glomerular Filt Rate > 60 mL/min (>60); Globulin 3.6 g/dL (1.7-4.1); Glucose 100 mg/dL (80-110); HEMOLYSIS < 15 (0-50); Potassium 4.4 mmol/L (3.4-5.1); Sodium 139 mmol/L (137-145)
[2024-03-27 12:32] LABS: Vitamin D 25 Hydroxy (D3) 62.9 ng/mL (30.0-100.0)
[2024-03-27 12:46] LABS: TSH w/ Reflex to FT4 1.83 uIU/mL (0.47-4.68)
== END ==
LOC: LAB 10:11
PROVIDERS: PCP Registered Nurse Diabetes Educator; Referring Provider Registered Nurse Diabetes Educator; Visit Provider Registered Nurse Diabetes Educator
DX: M81.0 Age-related osteoporosis without current pathological fracture (principal); Z79.899 Other long term (current) drug therapy; Z86.19 Personal history of other infectious and parasitic diseases
CPT/HCPCS: 36415; 80053; 82306; 84443; 85025

== ENCOUNTER 2024-11-12 16:46 | Emergency (ER) | payer OTHER, SELFPAY ==
[2022-05-10 21:33] VITALS: BMI 38.0
--- NOTE | 2024-11-12 16:53 | DI.RAD.S_ITS ---
PROCEDURE: XR CHEST 1V INDICATIONS: chest pain TECHNIQUE: One view of the chest was acquired. COMPARISON: [facility], CR, XR CHEST 2V, 11/22/2022, 15:56. FINDINGS: Surgical changes and devices: None. Lungs and pleura: Lungs are clear. No pleural effusions or pneumothorax. Mediastinum: Mediastinal contours appear normal. Heart size is normal. Bones and chest wall: No suspicious bony lesions. Overlying soft tissues appear unremarkable. IMPRESSION: No acute cardiopulmonary abnormalities or focal consolidation. Dictated by: Fred Weber M.D. on 11/12/2024 at 17:49 Approved by: Fred Weber M.D. on 11/12/2024 at 17:50
--- NOTE | 2024-11-12 16:53 | EKG_ITS ---
[address] [address] Test Date: 2024-11-12 Pat Name: Manju Bolivar Department: Room: Gender: Female Professor Of Exercise Science: RANDELL : 1955 Requested By: Order Number: [id number] Reading MD: Fernando Muñoz MD Measurements Intervals [place] Rate: 91 P: SD: 148 QRS: -53 QRSD: 104 T: 53 QT: 360 QTc: 442 Interpretive Statements Normal sinus rhythm Left anterior fascicular block Moderate voltage criteria for LVH, may be normal variant ( R in aVL , Lazaro product ) Septal infarct , age undetermined Electronically Signed On 11-12-2024 17:23:46 PST by Fernando Muñoz MD
[2024-11-12 16:54] VITALS: BP 193/88; PULSE 85; RESP 16; TEMP 36.4; O2SAT 98; BMI 35.7
[2024-11-12] MEDS: ASPIRIN 81 MG CHEW TAB 324 MG PO (17:13)
[2024-11-12 17:18] LABS: Add Manual Diff / Slide Review NO; Basophils Absolute Auto 0 /uL (0-100); Basophils Percent Auto 0.5 % (0-2); Eosinophils Absolute Auto 400 /uL (0-450); Eosinophils Percent Auto 4.5 % (2-4); Hematocrit 47.4 % (36-46); Hemoglobin 16.2 g/dL (12.0-16.0); Lymphocytes Absolute Auto 1300 /uL (1100-4500); Lymphocytes Percent Auto 16.8 % (25-40); Mean Corpuscular HGB Conc 34.1 % (30-36); Mean Corpuscular Hemoglobin 31.4 PG (26-34); Mean Corpuscular Volume 91.9 fL (80-100); Monocytes Absolute Auto 500 /uL (0-900); Monocytes Percent Auto 6.3 % (3-14); Neutrophils Absolute Auto 5700 /uL (1500-7000); Neutrophils Percent Auto 71.9 % (50-75); Platelet Count 253 X10^3/uL (150-400); Red Blood Cell Count 5.15 X10^6/uL (4.0-5.2); Red Cell Distribution Width 12.9 % (11.6-14.8); White Blood Cell Count 7.9 X10^3/uL (4.5-11.0)
[2024-11-12 17:25] LABS: INR 1.1 (0.9-1.3); Prothrombin Time 12.4 SECONDS (9.4-12.5)
[2024-11-12 17:28] LABS: PTT Partial Thromboplastin Tim 39 SECONDS (25.1-36.5)
[2024-11-12 17:30] LABS: Alanine Aminotransferase 47 IU/L (<35); Albumin 4.7 g/dL (3.5-5.0); Albumin Globulin Ratio 1.2 (1.0-2.8); Alkaline Phosphatase 64 U/L (38-126); Aspartate Aminotransferase 48 IU/L (14-36); BUN Creatinine Ratio 48.1 (6-22); Bilirubin Total 0.6 mg/dL (0.2-1.3); Blood Urea Nitrogen 26 mg/dL (7-17); Calcium 9.9 mg/dL (8.4-10.2); Carbon Dioxide 24 mmol/L (22-32); Chloride 104 mmol/L (98-107); Creatine Kinase 77 U/L (30-135); Estimated Glomerular Filt Rate > 60 mL/min (>60); Globulin 3.8 g/dL (1.7-4.1); Glucose 108 mg/dL (80-110); HEMOLYSIS < 15 (0-50); Lipase 77 U/L (23-300); Potassium 4.1 mmol/L (3.4-5.1); Sodium 137 mmol/L (137-145); Total Protein 8.5 g/dL (6.3-8.2)
[2024-11-12 17:42] LABS: NT-proBNP (BNP-Adult 18+) 32 pg/mL (<125); Troponin I < 0.012 ng/mL (0.01-0.034)
[2024-11-12 18:10] VITALS: BP 137/97; PULSE 67; RESP 18; TEMP 36.8
[2024-11-12] MEDS: ALBUTEROL HFA PREPACK 1 BOX MISC (19:52)
[2024-11-12 20:08] LABS: Troponin I < 0.012 ng/mL (0.01-0.034)
== END 2024-11-12 21:06 | disposition left against medical advice (07) ==
PROVIDERS: Emergency Medicine; Emergency Provider Emergency Medicine; PCP Registered Nurse Diabetes Educator
DX: R07.9 Chest pain, unspecified (principal)
CPT/HCPCS: 36415; 71045; 80053; 82550; 83690; 83735; 83880; 84484; 85025; 85610; 85730; 93005; 93010; 99283

== ENCOUNTER → 2024-12-06 07:31 | Outpatient (CLI) | payer OTHER, SELFPAY ==
[2022-05-10 21:33] VITALS: BMI 38.0
--- NOTE | 2024-12-06 13:58 | DI.NM.S_ITS ---
DATE OF SERVICE: 12/06/2024 PROCEDURE: Exercise treadmill stress test without imaging. ORDERING PROVIDER: SARAH Briggs. INDICATIONS: The patient is a 69-year-old female with recent atypical chest and abdominal discomfort. FINDINGS: 1. The patient was able to exercise for 7 minutes 12 seconds on a standard Jose Alejandro protocol, suggesting very good exercise capacity with an AJIT of -23%, achieving 7.3 METS. 2. She had a normal heart rate and blood pressure response to exercise, achieving a maximum heart rate of 156 bpm (103% of her predicted maximum). 3. She had moderate exertional dyspnea but no chest discomfort or other anginal symptoms. 4. Her resting ECG shows sinus rhythm with normal ST segments. With stress, there are no significant ST-segment shifts or arrhythmias. IMPRESSION: 1. Normal exercise treadmill stress test for ischemia. 2. Very good exercise capacity without angina or arrhythmias. Manju Bolivar - TEE/lucia/MARIAM doc#: [id number]/job#: [id number] dd: 12/06/2024 12:21:00 dt: 12/06/2024 13:48:00 DICTATING /COPIES TO: Jitendra Krause MD; SARAH Briggs COPIES MNE: MARIA ISABEL;
== END ==
PROVIDERS: PCP Registered Nurse Diabetes Educator; Referring Provider Registered Nurse Diabetes Educator; Visit Provider Registered Nurse Diabetes Educator
DX: R07.89 Other chest pain (principal); R94.31 Abnormal electrocardiogram [ECG] [EKG]
CPT/HCPCS: 93017

== ENCOUNTER → 2024-12-17 06:42 | Outpatient (CLI) | payer OTHER, SELFPAY ==
[2022-05-10 21:33] VITALS: BMI 38.0
--- NOTE | 2024-12-17 06:43 | DI.ECHO.S_ITS ---
[facility] : : [address] : : [place] : : [address] : : Phone: [phone] Echocardiogram Report + + :Name: ANTHONY AMBRIZ Study Date: 12/17/2024 Height: 60 in : :[facility] ReadingLocation: Weight: 173 lb : : Gender: Female BSA: 1.8 m2 : :: 1955 Age: 69 yrs BP: 158/107 mmHg: :Reason For Study: CHEST PAIN : :Ordering Physician: SAPPHIRE, : :SANJU Performed By: Milton Petersen : :Referring: SANJU LEARY : + + Interpretation Summary The ejection fraction is estimated to be 55-60%. Diastolic parameters suggest probable normal left ventricular diastolic function and normal filling pressures. The right ventricle is normal in size and function. There is mild aortic regurgitation. There is mild tricuspid regurgitation. The right ventricular systolic pressure is estimated to be at least 34 mmHg based on an estimated right atrial pressure of 3 mm Hg. Procedure: A two-dimensional transthoracic echocardiogram with color flow and Doppler was performed. The study quality was technically good. There is no prior echocardiogram noted for this patient. The patient was in normal sinus rhythm during the exam. Left Ventricle: The left ventricle is normal in size. There is normal left ventricular wall thickness. There is no ventricular septal defect visualized. A false chord is noted (normal variant). The ejection fraction is estimated to be 55-60%. There are no focal wall motion abnormalities. Diastolic parameters suggest probable normal left ventricular diastolic function and normal filling pressures. Right Ventricle: The right ventricle is normal in size and function. Atria: The left atrial size is normal. Right atrial size is normal. There is no Doppler evidence for an interatrial shunt. Mitral Valve: The mitral valve leaflets appear normal. There is no evidence of stenosis, fluttering, or prolapse. There is trace mitral regurgitation. Aortic Valve: The aortic valve is trileaflet. The aortic valve opens well. There is no aortic valve stenosis. There is mild aortic regurgitation. Tricuspid Valve: The tricuspid valve leaflets are thin and pliable. There is mild tricuspid regurgitation. The right ventricular systolic pressure is estimated to be at least 34 mmHg based on an estimated right atrial pressure of 3 mm Hg. Pulmonic Valve: The pulmonic valve leaflets are thin and pliable; valve motion is normal. There is trace pulmonic regurgitation. Great Vessels: The aortic root is normal size. The dimensions of the ascending aorta are normal. The pulmonary artery is normal size. The IVC is of normal diameter and collapses greater than 50% with a sniff. This suggests a low right atrial pressure of 3 mm Hg. Pericardium/ Pleura There is no pericardial effusion. There is no pleural effusion. MMode/2D Measurements & Calculations LVIDd: 4.6 cm LVOT diam: 2.0 cm LVIDs: 3.4 cm Ao root diam: 2.9 cm FS: 26.9 % asc Aorta Diam: 3.2 cm EPSS: 0.72 cm Ao Arch Diam (Prox Trans): 1.9 cm IVSd: 0.98 cm LVPWd: 1.0 cm LV sharp. diameter/BSA (cm/m^2): 2.6 LV sys. diameter/BSA (cm/m^2): 1.9 LA A2 area: 17.5 cm2 RA long axis: 3.9 cm LA A4 area: 15.1 cm2 RA area: 8.9 cm2 LA length (vol): 4.8 cm RA vol: 17.2 ml LA vol: 46.4 ml RA : 9.8 ml/m2 LA vol index: 26.5 ml/m2 IVC diam: 1.4 cm RVD1 (basal): 3.5 cm RVD2 (mid): 3.0 cm TAPSE: 1.9 cm Doppler Measurements & Calculations Ao V2 max: 124.8 cm/sec LVOT Max Doug: 86.6 cm/sec Ao V2 mean: 83.2 cm/sec LV V1 max P.0 mmHg Ao max P.2 mmHg LV V1 VTI: 20.9 cm Ao mean P.1 mmHg KALEIGH(I,D): 2.6 cm2 Ao V2 VTI: 25.0 cm KALEIGH(V,D): 2.2 cm2 sev ratio: 0.84 KALEIGH indexed to BSA (cm^2/m^2): 1.5 AI P1/2t: 683.3 msec AI dec slope: 203.9 cm/sec2 MV E max doug: 36.2 cm/sec TR max doug: 278.9 cm/sec MV A max doug: 65.3 cm/sec TR max P.1 mmHg MV E/A: 0.55 PA V2 max: 63.2 cm/sec Med Peak E' Doug: 4.7 cm/sec PA V2 mean: 45.8 cm/sec E/E' med: 7.7 PA mean P.92 mmHg Lat Peak E' Doug: 4.6 cm/sec PA pr(Accel): -1.5 mmHg E/E' lat: 7.8 E/e' average: 7.7 MV dec time: 0.34 sec SV([facility]): 66.0 ml Reading Physician:05:34 PM
== END ==
PROVIDERS: PCP Registered Nurse Diabetes Educator; Referring Provider Registered Nurse Diabetes Educator; Visit Provider Registered Nurse Diabetes Educator
DX: I08.2 Rheumatic disorders of both aortic and tricuspid valves (principal); R07.89 Other chest pain; R94.31 Abnormal electrocardiogram [ECG] [EKG]
CPT/HCPCS: 93306

== ENCOUNTER → 2025-04-01 07:30 | Outpatient (CLI) | payer OTHER, SELFPAY ==
[2022-05-10 21:33] VITALS: BMI 38.0
[2025-04-01 07:48] LABS: Hematocrit 44.2 % (36-46); Hemoglobin 15.0 g/dL (12.0-16.0); Mean Corpuscular HGB Conc 33.9 % (30-36); Mean Corpuscular Hemoglobin 32.1 PG (26-34); Mean Corpuscular Volume 94.8 fL (80-100); Platelet Count 214 X10^3/uL (150-400)
[2025-04-01 08:21] LABS: Alanine Aminotransferase 25 IU/L (<35); Albumin 4.0 g/dL (3.5-5.0); Albumin Globulin Ratio 1.3 (1.0-2.8); Alkaline Phosphatase 66 U/L (38-126); Blood Urea Nitrogen 20 mg/dL (7-17); Calcium 9.2 mg/dL (8.4-10.2); Carbon Dioxide 27 mmol/L (22-32); Chloride 104 mmol/L (98-107); Cholesterol 112 mg/dL (140-199); Estimated Glomerular Filt Rate > 60 mL/min (>60); Globulin 3.1 g/dL (1.7-4.1); Glucose 93 mg/dL (70-99); HDL Cholesterol 48 mg/dL (40-60); HEMOLYSIS 15 (0-50); Potassium 4.3 mmol/L (3.4-5.1); Sodium 136 mmol/L (137-145); Total Protein 7.1 g/dL (6.3-8.2); Triglycerides 57 mg/dL (35-150)
[2025-04-01 08:37] LABS: Vitamin D 25 Hydroxy (D3) 80.3 ng/mL (30.0-100.0)
[2025-04-01 08:54] LABS: TSH w/ Reflex to FT4 2.95 uIU/mL (0.47-4.68)
== END ==
PROVIDERS: PCP Registered Nurse Diabetes Educator; Referring Provider Registered Nurse Diabetes Educator; Visit Provider Registered Nurse Diabetes Educator
DX: R74.8 Abnormal levels of other serum enzymes (principal); M81.0 Age-related osteoporosis without current pathological fracture; B19.20 Unspecified viral hepatitis C without hepatic coma; R79.89 Other specified abnormal findings of blood chemistry; D58.2 Other hemoglobinopathies; E55.9 Vitamin D deficiency, unspecified
CPT/HCPCS: 36415; 80053; 80061; 82306; 84443; 85027